=== PATIENT | female | born 1940 | race Caucasian/White ===

== ENCOUNTER 2022-05-16 09:23 | Day surgery (SDC) | payer MEDICARE, OTHER, SELFPAY ==
[2022-05-16 09:45] VITALS: BP 152/66; PULSE 59; RESP 18; TEMP 37.2; O2SAT 99
[2022-05-16] MEDS: TETRACAINE 0.5% OPHTH 1 DROP EYE-RIGHT ×2 (09:45→09:50)
[2022-05-16] MEDS: KETOROLAC OPHTH 0.5% 1 DROP EYE-RIGHT ×3 (09:45→09:55)
[2022-05-16 09:56] VITALS: BMI 33.8
[2022-05-16] MEDS: SODIUM CHLORIDE 0.9 % (FLUSH) 10 ML SYRINGE IVF (10:02)
--- NOTE | 2022-05-16 10:07 | SUR.PREOP ---
The eye drops brought by the patient (Ketorolac and Prednisolone) are examined and I have determined they are labeled by the patient's pharmacy for this patient as prescribed by the surgeon. The bottles are intact, recently obtained and appear to be correct.
[2022-05-16] MEDS: TETRACAINE 0.5% OPHTH 2 DROP EYE-RIGHT (10:39)
[2022-05-16] MEDS: TRYPAN BLUE 0.5 ML SYRINGE EYE-RIGHT (10:45)
[2022-05-16] MEDS: BALANCED SALT IRRIG SOLN 15 ML EYE-RIGHT (10:45)
[2022-05-16 11:20] VITALS: BP 150/72; PULSE 55; RESP 20; TEMP 36.3; O2SAT 100
--- NOTE | 2022-05-16 11:20 | W.ANESCHARGE ---
Anesthesia Charges Start Date/Time Anesthesia Start Date: 05/16/22 Anesthesia Start Time: 10:35 Stop Date/Time Anesthesia Stop Date: 05/16/22 Anesthesia Stop Time: 11:20 Summary Emergency: No Extremes of Age: Over 69-CPT 28104
--- NOTE | 2022-05-16 12:43 | P.OPTPRC_ITS ---
Procedure Note Date of procedure: 05/16/22 Will [facility] bill your pro fee for this procedure?: Yes Procedure Description: SURGEON: Gabrielle Barker MD PREOPERATIVE DIAGNOSIS: 1. Mature cataract, right eye. 2. Miosis, right eye. POSTOPERATIVE DIAGNOSIS: 1. Mature cataract, right eye. 2. Miosis, right eye. NAME OF OPERATION: Phacoemulsification of cataract with posterior chamber intraocular lens implantation in the right eye with pupilloplasty and trypan blue. ANESTHESIA: Topical. ESTIMATED BLOOD LOSS: Less than 2 cc. COMPLICATIONS: None. PATHOLOGY SPECIMEN: None. INDICATIONS: See consult note for details. The risks, benefits and alternatives of the procedure were explained to the patient, who elected to proceed and signed informed consent to do so. PROCEDURE: The patient was brought to the pre-holding area where the right eye was identified as the operative eye. I placed my initials above this eye. The patient received eye drops consisting of 0.5% tetracaine, 1% tropicamide, 10% phenylephrine, and 0.5% ketorolac. The patient was given 12.5 grams IV mannitol and a [place] balloon was placed for 8 minutes pre-operatively. The patient was then brought to the operating room where the right eye was again identified as the operative eye. The eye was prepped with Betadine and draped in the usual sterile ophthalmic fashion. A #15 super-sharp blade was used to create a paracentesis site. 1% non-preserved intracameral lidocaine was injected into the anterior chamber. An air bubble was injected into the anterior chamber. Trypan blue was injected posterior to the air bubble in order to stain the anterior capsule. Balanced salt solution was used to irrigate the anterior chamber. Endocoat was injected into the anterior chamber. A 2.4 mm keratome was used to create a three-plane self-sealing incision 1 mm anterior to the temporal limbus. A #15 super-sharp blade was used to create four additional paracentesis sites. Four Grieshaber iris hooks were placed in order to stretch the iris. A cystotome was used to create an anterior capsular leaflet. The Utrata forceps were used to extend this to form a continuous curvilinear capsulorrhexis. Hydrodissection was performed. The cataract was removed with phacoemulsification using the [id number] technique. The irrigation and aspiration tip was used to remove the remaining cortex. Healon was injected into the capsular bag. An LISBETH ZCB00 intraocular lens of 23.0 diopters was injected into the capsular bag. The four Grieshaber iris hooks were removed. The irrigation and aspiration tip was used to remove the remaining viscoelastic. Miostat was injected into the anterior chamber. Bal anced salt solution on a cannula was used to hydrate the wound, and the wound was found to be watertight. The pupil was noted to be round. DISPOSITION: The patient was taken to the recovery room and discharged to home in stable condition. The patient was instructed to call me or go to the emergency department with any sudden change, including dramatic loss of vision, severe pain in the eye or eyebrow region, nausea, or vomiting. The patient will follow up in the clinic tomorrow morning. Surgeon: Gabrielle Barker MD
== END 2022-05-16 11:56 | disposition home or self-care (01) ==
PROVIDERS: PCP Family Medicine; Visit Provider Ophthalmology
PROC: (CPT 66982; principal; 2022-05-16 09:45)
DX: H25.89 Other age-related cataract (principal); H57.03 Miosis
CPT/HCPCS: 66982; 00142; 99100; A9270; J2150; J3010; V2632

== ENCOUNTER 2022-05-30 07:57 | Day surgery (SDC) | payer MEDICARE, OTHER, SELFPAY ==
[2022-05-30] MEDS: TETRACAINE 0.5% OPHTH 1 DROP EYE-LEFT ×2 (08:20→08:30)
[2022-05-30] MEDS: KETOROLAC OPHTH 0.5% 1 DROP EYE-LEFT ×3 (08:30→08:45)
[2022-05-30 08:37] VITALS: BMI 32.8
[2022-05-30 08:43] VITALS: BP 152/63; PULSE 55; RESP 16; TEMP 36.6; O2SAT 99
[2022-05-30] MEDS: ETHYL CHLORIDE 1 APPLICATION 1 APPLIC TOPICAL (08:45)
[2022-05-30] MEDS: SODIUM CHLORIDE 0.9 % (FLUSH) 10 ML SYRINGE IVF (08:46)
--- NOTE | 2022-05-30 09:09 | SUR.PREOP ---
0820: The eye drops brought by the patient (Ketorolac and Prednisolone) are examined and I have determined they are labeled by the patient's pharmacy for this patient as prescribed by the surgeon. The bottles are intact, recently obtained and appear to be correct.
[2022-05-30] MEDS: TETRACAINE 0.5% OPHTH 2 DROP EYE-LEFT (09:45)
[2022-05-30] MEDS: BALANCED SALT IRRIG SOLN 15 ML EYE-LEFT (09:50)
--- NOTE | 2022-05-30 09:51 | W.ANESCHARGE ---
Anesthesia Charges Start Date/Time Anesthesia Start Date: 05/30/22 Anesthesia Start Time: 09:43 Stop Date/Time Anesthesia Stop Date: 05/30/22 Anesthesia Stop Time: 10:24 Summary Emergency: No Extremes of Age: Over 69-CPT 16210
[2022-05-30 10:20] VITALS: BP 163/60; PULSE 53; RESP 20; TEMP 36.2; O2SAT 100
--- NOTE | 2022-05-30 10:21 | W.PM.OPTPROC ---
Procedure Note Date of procedure: 05/30/22 Will [facility] bill your pro fee for this procedure?: Yes Procedure Description: SURGEON: Gabrielle Barker MD PREOPERATIVE DIAGNOSIS: 1. Mature cataract, left eye. 2. Miosis, left eye. POSTOPERATIVE DIAGNOSIS: 1. Mature cataract, left eye. 2. Miosis, left eye. NAME OF OPERATION: Phacoemulsification of cataract with posterior chamber intraocular lens implantation in the left eye with pupilloplasty. ANESTHESIA: Topical. ESTIMATED BLOOD LOSS: Less than 2 cc. COMPLICATIONS: None. PATHOLOGY SPECIMEN: None. INDICATIONS: See consult note for details. The risks, benefits and alternatives of the procedure were explained to the patient, who elected to proceed and signed informed consent to do so. PROCEDURE: The patient was brought to the pre-holding area where the left eye was identified as the operative eye. I placed my initials above this eye. The patient received eye drops consisting of 0.5% tetracaine, 1% tropicamide, 10% phenylephrine, and 0.5% ketorolac. The patient was given 12.5 grams IV mannitol and a [place] balloon was placed for 8 minutes pre-operatively. The patient was then brought to the operating room where the left eye was again identified as the operative eye. The eye was prepped with Betadine and draped in the usual sterile ophthalmic fashion. A #15 super-sharp blade was used to create a paracentesis site. 1% non-preserved intracameral lidocaine was injected into the anterior chamber. Endocoat was injected into the anterior chamber. A 2.4 mm keratome was used to create a three-plane self-sealing incision 1 mm anterior to the temporal limbus. A #15 super-sharp blade was used to create four additional paracentesis sites. Four Grieshaber iris hooks were placed in order to stretch the iris. A cystotome was used to create an anterior capsular leaflet. The Utrata forceps were used to extend this to form a continuous curvilinear capsulorrhexis. Hydrodissection was performed. The cataract was removed with phacoemulsification using the [id number] technique. The irrigation and aspiration tip was used to remove the remaining cortex. Healon was injected into the capsular bag. An LISBETH ZCB00 intraocular lens of 23.5 diopters was injected into the capsular bag. The four Grieshaber iris hooks were removed. The irrigation and aspiration tip was used to remove the remaining viscoelastic. Miostat was injected into the anterior chamber. Balanced salt solution on a cannula was used to hydrate the wound, and the wound was found to be watertight. The pupil was noted to be round. DISPOSITION: The patient was taken to the recovery room and discharged to home in stable condition. The patient was instructed to call me or go to the emergency department with any sudden change, including dramatic loss of vision, severe pain in the eye or eyebrow region, nausea, or vomiting. The patient will follow up in the clinic tomorrow morning. Surgeon: Gabrielle Barker MD
--- NOTE | 2022-05-30 10:44 | W.ANESCHARGE ---
Anesthesia Charges Start Date/Time Anesthesia Start Date: 05/30/22 Anesthesia Start Time: 09:43 Stop Date/Time Anesthesia Stop Date: 05/30/22 Anesthesia Stop Time: 10:24 Summary Emergency: No Extremes of Age: Over 69-CPT 92242
== END 2022-05-30 10:45 | disposition home or self-care (01) ==
LOC: OR 07:58
PROVIDERS: PCP Family Medicine; Visit Provider Ophthalmology
PROC: (CPT 66982; principal; 2022-05-30 08:15)
DX: H25.89 Other age-related cataract (principal); H57.03 Miosis
CPT/HCPCS: 66982; 00142; 99100; A9270; J2150; J2250; J2405; J3010; V2632

== ENCOUNTER 2023-09-09 14:15 | Outpatient (RCR) | payer MEDICARE, OTHER, SELFPAY | END 2023-11-25 14:04 | disposition home or self-care (01) | PROVIDERS: PCP Family Medicine; Visit Provider Family Medicine | DX: M18.0 Bilateral primary osteoarthritis of first carpometacarpal joints (principal); M79.644 Pain in right finger(s); G89.29 Other chronic pain; M79.645 Pain in left finger(s); M25.649 Stiffness of unspecified hand, not elsewhere classified; Z51.89 Encounter for other specified aftercare | CPT/HCPCS: 97110; 97140; 97165; 97530; X5282 ==

== ENCOUNTER 2024-10-06 11:00 | Outpatient (RCR) | payer MEDICARE, BC, OTHER, SELFPAY | END 2025-02-03 23:59 | disposition home or self-care (01) | PROVIDERS: PCP Family Medicine; Visit Provider Physician Assistant | DX: M62.89 Other specified disorders of muscle (principal); N81.6 Rectocele; N39.3 Stress incontinence (female) (male); R15.2 Fecal urgency; Z51.89 Encounter for other specified aftercare | CPT/HCPCS: 97110; 97140; 97162; 97535 ==

== ENCOUNTER 2025-03-22 12:21 | Emergency (ER) | payer MEDICARE, BC, SELFPAY ==
[2025-03-22] VITALS (33 sets, daily range): BP systolic 128–158; BP diastolic 56–76; PULSE 47–60; RESP 9–32; TEMP 36.5; O2SAT 90–100; BMI 30.9
--- NOTE | 2025-03-22 12:44 | ED_ITS ---
HPI - General Adult General Time Seen by Provider: 12:44 Date Seen: 03/22/25 Chief complaint: Weakness Stated complaint: weakness Time Seen by Provider: 03/22/25 12:34 Source: patient and RN notes reviewed Mode of arrival: ambulatory Limitations: no limitations History of Present Illness HPI narrative: This 85yo female is brought into the ED by her daughter for concerns of dizziness, possible infection. Her symptoms started on Saturday with complaint of feeling very cold despite it being hot outside. No documented fevers but has had chills. No coughing or respiratory symptoms. No abdominal symptoms but did just complete antibiotics on Saturday for UTI per her daughter. Patient is endorsing dizziness with this, agrees that it is a sense of spinning feeling. Has been present since Saturday, does wax and wane with her symptoms. Right now feels relatively under control. When it is there, she doesn't necessarily feel that resting or holding still help resolve symptoms. She does feel that her vision gets generally blurry when the dizziness is bad. She has not noted any voice or arm/leg issues. Related Data Home Medications ?Medication ?Instructions ?Recorded ?Confirmed levothyroxine 25 mcg tablet mcg 05/16/22 05/20/23 simvastatin 40 mg tablet mg 05/16/22 05/20/23 amlodipine 2.5 mg tablet 2.5 mg PO BID 03/22/2503/22 Allergies Allergy/AdvReac Type Severity Reaction Status Date / Time No Known Drug Allergies Allergy Verified 05/20/23 09:42 Review of Systems Status of ROS: Reports: 6 or more systems reviewed and unremarkable except as noted in History and below [facility] Medical History Pulmonary embolism ?I26.99 - Other pulmonary embolism without acute cor pulmonale (ICD-10) Seasonal allergies ?J30.2 - Other seasonal allergic rhinitis (ICD-10) Lymphocytic colitis ?K52.832 - Lymphocytic colitis (ICD-10) Onychomycosis ?B35.1 - Tinea unguium (ICD-10) Overactive bladder ?N32.81 - Overactive bladder (ICD-10) Hypothyroidism ?E03.9 - Hypothyroidism, unspecified (ICD-10) Hyperlipemia, 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 - Hyperlipidemia, unspecified (ICD-10) Surgical History History of tonsillectomy and adenoidectomy ?Z90.89 - Acquired absence of other organs (ICD-10) History of total abdominal hysterectomy ?Z90.710 - Acquired absence of both cervix and uterus (ICD-10) History of knee joint replacement ?Z96.659 - Presence of unspecified artificial knee joint (ICD-10) History of colonoscopy ?Z98.890 - Other specified postprocedural states (ICD-10) History of lumpectomy of both breasts ?Z98.890 - Other specified postprocedural states (ICD-10) History of appendectomy ?Z90.49 - Acquired absence of other specified parts of digestive tract (ICD- 10) Family History Other Deep vein thrombosis (DVT) Social History Smoking Status: Former smoker Do you use any of these nicotine containing products: None How often do you have a drink containing alcohol: monthly or less Alcohol type: wine How many standard drinks containing alcohol do you have on a typical day: 1 or 2 How often do you have six or more drinks on one occasion: Never AUDIT-C Alcohol total score: 1 Non-prescribed substance use: denies use Caffeine: Yes (COFFEE) Are you using contraception or practicing any form of control: No Exam Const: Vital Signs, click to edit/add: Vital Signs - 24 hr 03/22/25 12:30 03/22/25 12:44 03/22/25 12:45 Temperature 97.7 F Pulse Rate 59 L 58 L Pulse Rate [Pulse Oximeter] 59 L Respiratory Rate 18 17 10 L Blood Pressure Blood Pressure [Ri ght Upper Arm] 146/65 H Pulse Oximetry 99 100 100 Oxygen Delivery Me thod Room Air 03/22/25 13:00 03/22/25 13:02 03/22/25 13:30 Temperature Pulse Rate 60 60 57 L Pulse Rate [Pulse Oximeter] Respiratory Rate 26 H 18 18 Blood Pressure 142/57 H Blood Pressure [Ri ght Upper Arm] Pulse Oximetry 96 100 100 Oxygen Delivery Me thod 03/22/25 13:36 03/22/25 13:45 03/22/25 14:00 Temperature Pulse Rate 53 L 55 L 54 L Pulse Rate [Pulse Oximeter] Respiratory Rate 32 H 16 11 L Blood Pressure Blood Pressure [Ri ght Upper Arm] Pulse Oximetry 100 100 [facility] 03[facility]22/25 14:05 03/22/25 14:15 03/22/25 14:30 Temperature Pulse Rate 57 L 56 L 57 L Pulse Rate [Pulse Oximeter] Respiratory Rate 17 13 29 H Blood Pressure Blood Pressure [Ri ght Upper Arm] Pulse Oximetry 90 92 99 [facility] 03/22/25 14:32 03/22/25 14:45 03/22/25 15:00 Temperature Pulse Rate 51 L 54 L 55 L Pulse Rate [Pulse Oximeter] Respiratory Rate 23 16 15 Blood Pressure 154/70 H Blood Pressure [Ri ght Upper Arm] Pulse Oximetry 100 100 99 [facility] 03/22/25 15:02 03/22/25 15:15 03/22/25 15:30 Temperature Pulse Rate 54 L 54 L 54 L Pulse Rate [Pulse Oximeter] Respiratory Rate 12 9 L 14 Blood Pressure 128/76 Blood Pressure [Ri ght Upper Arm] Pulse Oximetry 100 100 100 [facility] 03/22/25 15:32 03/22/25 15:45 03/22/25 16:00 Temperature Pulse Rate 59 L 54 L 54 L Pulse Rate [Pulse Oximeter] Respiratory Rate 10 L 9 L 16 Blood Pressure 149/70 H Blood Pressure [Ri ght Upper Arm] Pulse Oximetry 100 100 98 [facility] 03/22/25 16:53 03/22/25 16:55 03/22/25 16:56 Temperature Pulse Rate 53 L 54 L Pulse Rate [Pulse Oximeter] Respiratory Rate 19 16 15 Blood Pressure 158/57 H Blood Pressure [Ri ght Upper Arm] Pulse Oximetry 100 100 [facility] 03/22/25 17:00 03/22/25 17:02 03/22/25 17:15 Temperature Pulse Rate 50 L 51 L 50 L Pulse Rate [Pulse Oximeter] Respiratory Rate 15 26 H Blood Pressure 154/60 H Blood Pressure [Ri ght Upper Arm] Pulse Oximetry 98 100 99 [facility] 03/22/25 17:30 03/22/25 17:32 03/22/25 17:45 Temperature Pulse Rate 53 L 52 L 55 L Pulse Rate [Pulse Oximeter] Respiratory Rate 14 14 16 Blood Pressure 148/56 H Blood Pressure [Ri ght Upper Arm] Pulse Oximetry 97 95 96 Oxygen Delivery Me thod 03/22/25 18:03 03/22/25 18:15 03/22/25 18:30 Temperature Pulse Rate 50 L 48 L 47 L Pulse Rate [Pulse Oximeter] Respiratory Rate 26 H 19 22 Blood Pressure Blood Pressure [Ri ght Upper Arm] Pulse Oximetry 98 99 98 Oxygen Delivery Me thod This 85-year-old female is alert, interactive, looks comfortable is very pleasant, lying in the bed in exam room 5. Sclera clear, conjugate gaze, do not appreciate any significant nystagmus, notes no visual field cuts on gross confrontation. Symmetrical facial function, speech is normal. Neck supple, no masses, no jugular venous distension, no adenopathy noted. She is able sit up, lungs are clear, good air entry, no wheezing or crackles, no tachypnea, no accessory muscle use. CV regular rate and rhythm, no significant murmur, normal S1-S2. Abdomen is soft, nontender, nondistended, no organomegaly. Strength is about 4/5 in her hands but is symmetric, overall get about 4-5 as far strength goes but think that is her baseline as there is no change between her 2 sides. She does get a little flapping tremor of her right wrist with outstretched arm. When ask her to live upper legs off the bed, there is a little ataxic movement trying to hold her leg up on each side but is symmetric. No resting tremor noted. Did not have the patient ambulate at this time. Documenting provider has reviewed patient's vital signs: yes Course Course ED Course: Patient certainly does have some things in her history that make infectious etiology like recurrent UTI possible. Her daughter was worried about sepsis, she does not meet any criteria for that at this time and see no physical concerns for this based on my initial evaluation but will be monitored here. Will consider metabolic abnormalities. Does almost sound like this could be vertiginous, will start with a noncontrast head CT. If there is no infectious or metabolic etiology, may need to consider further neurologic workup. Right now patient is hemodynamically stable, afebrile. Reevaluation(s) Time of Reevaluation #1: 15:45 Reevaluation #1: Reviewed reassuring lab findings, no change in head CT. Did specifically review that the urinalysis is not showing any definitive infection. Patient states that she is going to have to make an appointment with an eye doctor then. She points that the upper corner looks flat, does not see a point the corner and the bottom part of it looks like it is a rounded post instead of a corner. She felt like the clock kept moving while she was looking at it here. She is obviously having visual changes. Will order brain MR and angio of her head and neck and talk to Neurology about this patient. Again her symptoms have been present since Saturday. Time of Reevaluation #2: 18:21 Reevaluation #2: Reviewed with patient and her daughter that there is no evidence of any concerns with her vasculature or any stroke on the imaging. Her labs are giving no indication of source of infection. This certainly could be peripheral vertigo. She would like to try to get up and walk. If patient is stable, can try going home with p.r.n. use of meclizine which is [id number]. Nursing staff will road test the patient and see how she does. She does live independently in an apartment, does not have assistance at home. Time of Reevaluation #3: 18:59 Reevaluation #3: Patient did fine ambulating per report, will discharge to home. Consultations Consultation #1: Did speak with Stroke Neurology Dr. Lyons from [place]. Reviewed patient's symptoms and her current visual complaints. He does agree that we need to proceed with the CT angio head neck and her brain MR noncontrast. These have already been ordered. He did ask about new medications. Did review that she had completed an antibiotic but I do not know what it was. As for her other medicines, reviewed the 3 that she was on, did confirm that her TSH was normal today and thus her levothyroxine dosing is not off. She otherwise is on amlod ipine and a cholesterol agent. Time: 15:57 Consultation #2: Spoke with Dr. Chris whom is now covering the stroke tele service for [employer]. We reviewed patient's case, her imaging. The punctate abnormality seen on the MRI is old, can be from old trauma or old amyloid angiopathy. He states this is nothing new, there is nothing to worry about at this time. If patient can ambulate, can discharge to home, he does agree with the plan to have her at least see her eye doctor in follow-up. Time: 18:10 Vital Signs Vital signs: Initial Vital Signs Temperature 97.7 F 03/22/25 12:30 Temperature Source Temporal Artery Scan 03/22/25 12:30 Pulse Rate 59 L 03/22/25 12:30 Respiratory Rate 18 03/22/25 12:30 Blood Pressure 146/65 H 03/22/25 12:30 Blood Pressure Mean 92 03/22/25 12:30 Blood Pressure Position Supine 03/22/25 12:30 Pulse Oximetry 99 03/22/25 12:30 Oxygen Delivery Method Room Air 03/22/25 12:30 Vital Signs Temperature 97.7 F 03/22/25 12:30 Pulse Rate 59 L 03/22/25 12:30 Respiratory Rate 18 03/22/25 12:30 Blood Pressure 146/65 H 03/22/25 12:30 Pulse Oximetry 99 03/22/25 12:30 Oxygen Delivery Method Room Air 03/22/25 12:30 Temperature 97.7 F 03/22/25 12:30 Pulse Rate 47 L 03/22/25 18:30 Respiratory Rate 22 03/22/25 18:30 Blood Pressure 148/56 H 03/22/25 17:32 Pulse Oximetry 98 03/22/25 18:30 Oxygen Delivery Method Room Air 03/22/25 12:30 Medical Decision Making Lab Data Lab results reviewed: Yes I reviewed the patient's lab results Labs: Lab Results 03/22/25 03/22/25 Range/Units 13:05 14:20 WBC 5.92 (4.50-11.00) K/uL RBC 4.39 (4.00-5.20) m/uL Hgb 13.6 (12.0-16.0) gm/dL Hct 40.6 (33.0-51.0) % MCV 93 (80-100) fL MCH 31 (26-34) pg MCHC 34 (32-36) gm/dL RDW Coeff of Deepti 12.7 (11.5-15.5) % Plt Count 224 (140-440) K/uL Neut % (Auto) 65.4 (42.0-72.0) % Lymph % (Auto) 23.8 (20-44) % Gem % (Auto) 9.1 (0.0-11.0) % Eos % (Auto) 1.2 (0.0-7.0) % Baso % (Auto) 0.3 (0.0-3.0) % Neut # (Auto) 3.87 (1.7-7.0) K/uL Lymph # (Auto) 1.41 (0.90-2.90) K/uL Gem # (Auto) 0.50 (0.00-0.90) K/UL Eos # (Auto) 0.07 (0.00-0.50) K/uL Baso # (Auto) 0.02 (0.00-0.30) K/uL Abs Immat Gran (auto) 0.01 (0.00-0.30) K/uL Imm/Tot Granulo (auto) 0.2 % Sodium 133 L (135-149) mmol/L Potassium 4.4 (3.6-5.1) mmol/L Chloride 100 (96-114) mmol/L Carbon Dioxide 25 (20-32) mmol/L Anion Gap 8 (7-15) mEq/L BUN 21 (7-30) mg/dL Creatinine 0.8 (0.5-1.5) mg/dL Estimated Creat Clear 31.94 Estimated GFR 72 ml/min Glucose 96 (60-115) mg/dL Lactate 1.4 (0.5-1.9) mmol/L Calcium 9.9 (8.4-10.6) mg/dL Magnesium 2.0 (1.5-2.6) mg/dL Total Bilirubin 0.6 (0.1-1.5) mg/dL AST 30 (12-35) U/L ALT 14 (4-35) U/L Alkaline Phosphatase 71 (40-150) U/L Troponin I < 0.01 (0.01-0.04) ng/mL C-Reactive Protein < 0.5 L (0.5-1.0) mg/dL Total Protein 7.5 (6.0-8.3) g/dL Albumin 4.4 (3.3-5.0) g/dL TSH 1.450 (0.270-4.200) uIU/mL Urine Color Yellow (Yellow) Urine Appearance Clear (Clear) Urine pH 8.5 (5.0-8.5) Ur Specific [place] 1.015 (1.000-1.030) Urine Protein Negative (Negative) Urine Glucose (UA) Negative (Negative) Urine Ketones Negative (Negative) Urine Blood Negative (Negative) Urine Nitrite Negative (Negative) Urine Bilirubin Negative (Negative) Urine Urobilinogen 0.2 (0.2-1.0) Ur Leukocyte Esterase Negative (Negative) Urine RBC 0-2 (0-2) Urine WBC 0-2 (0-5) Ur Squamous Epith Cells Moderate A (None-Few) Urine Bacteria None (None) Imaging Data CT scan - head: Attestation: I have reviewed the pertinent imaging results. Radiologist's impression: Patient: PRADEEP ZIEGLER Facility:?[facility] Patient ID:?[id number] Site Patient ID:?[id number]. Site :?[id number] Study:?CT-Head w/o-03/22/2025 1:15:04 PM Ordering Physician:Venice Gracia Final Report: INDICATION: dizziness, vertigo COMPARISON: CT head on September 20, 2020 TECHNIQUE: CT of the head without contrast. FINDINGS: Brain Parenchyma: Stable global cortical involutional changes. No acute infarct, acute intracranial hemorrhage, mass effect, or midline shift. Periventricular and supraventricular white matter hypodensity, suggestive of chronic microvascular ischemic changes. Ventricles: Stable mild ventricular enlargement, commensurate with the degree of cortical involutional changes and sulcal prominence. Extra-axial Spaces: No abnormal fluid collection. Paranasal sinuses: No significant mucosal thickening. Orbits: Unremarkable Mastoid Sinuses: Unremarkable Cranium: No acute fracture Soft tissues: Unremarkable IMPRESSION: No CT evidence of an acute intracranial process. Please note that all CT scans at this facility use dose modulation, iterative reconstruction, and/or weight-based dosing when appropriate to reduce radiation dose to as low as reasonably achievable. Dictated by Milan Wyatt MD @ 03/22/2025 1:25:52 PM (Electronic Signature) MR Brain: Attestation: I have reviewed the pertinent imaging results. Radiologist's impression: Patient: PRADEEP ZIEGLER Facility:?[facility] Patient ID:?[id number] Site Patient ID:?[id number]. Site :?[id number] Study:?MRI-Head WO-03/22/2025 4:52:16 PM Ordering Physician:Venice Gracia Final Report: INDICATION: visual changes, ?vertigo TECHNIQUE: Noncontrast Sagittal T1, Axial FSE T2, Flair, DWI images submitted. COMPARISON: Dating back to 2020 FINDINGS: The scalp and calvarium are normal. The superior sagittal sinus demonstrates normal venous flow. The corpus callosum is normal in shape and signal intensity. The posterior fossa is unremarkable. The pituitary and sella are normal. The brainstem and craniocervical junction are unremarkable. The upper cervical spinal cord and spine are normal. Diffusion weighted images reveal no hyperintensities to suggest acute cerebral infarction. Scattered areas of punctate susceptibility within the brain, predominantly in the right occipital and left occipital regions. Likely reflecting sequela of underlying chronic microvascular hemorrhage.. The ventricles are normal in size and position without evidence of hydrocephalus. There is mild, age-appropriate generalized atrophy. The axial FLAIR images show scattered punctate hyperintensities in the deep white matter, a nonspecific finding, however most commonly seen in the setting of chronic small vessel ischemic changes. The visualized portions of the orbits, mastoids and paranasal sinuses are unremarkable. Normal flow voids are demonstrated in the carotid arteries and basilar artery. IMPRESSION: 1. No acute intracranial findings. 2. Scattered areas of punctate susceptibility within the brain, predominantly in the right occipital and left occipital regions. Likely reflecting sequela of underlying chronic microvascular hemorrhage. Dictated by Roman Saldana MD @ 03/22/2025 5:07:35 PM (Electronic Signature) CT- Other: Attestation: I have reviewed the pertinent imaging results. Radiologist's impression: Patient: PRADEEP ZIEGLER Facility:?[facility] Patient ID:?[id number] Site Patient ID:?[id number]. Site :?[id number] Study:?CT-Head Angio W/IV-03/22/2025 4:18:01 PM Ordering Physician:Venice Gracia Final Report: INDICATION: Visual changes, vertigo. TECHNIQUE: CTA head using intravenous contrast administration with bolus tracking, 3D angiographic rendering using maximum intensity projection (MIP) and images permanently archived. CTA neck using intravenous contrast administration with bolus tracking, 3D angiographic rendering using maximum intensity projection (MIP) and images permanently archived. FINDINGS: CTA head: There is normal opacification of the intracranial vasculature. There is no large vessel occlusion or significant intracranial stenosis. No aneurysm is identified. CTA neck: There is carotid atherosclerosis bilaterally. There is no significant carotid artery stenosis or dissection. There is no significant vertebral artery stenosis or dissection. Degenerative changes are noted in the cervical spine. IMPRESSION: No acute intracranial abnormality at CTA. No significant carotid or vertebral artery stenosis or dissection. Please note that all CT scans at this facility use dose modulation, iterative reconstruction, and/or weight-based dosing when appropriate to reduce radiation dose to as low as reasonably achievable. Dictated by Marko Novoa MD @ 03/22/2025 5:06:24 PM (Electronic Signature) ECG Data Attestation: I personally reviewed and interpreted this ECG as follows: (Sinus bradycardia, 55 beats per minute. No active ischemia or infarct.) Prior ECG tracings: not available for review Discharge Plan Discharge Clinical Impression: Dizziness Patient Disposition: Home, Self-Care Condition: Stable Instructions: Vertigo (ED), Dizziness (ED) Additional Instructions: Your symptoms certainly sound like vertigo to me, based on the workup today this is likely peripheral vertigo. If you have ongoing symptoms, can try meclizine per bottle directions which is sold [id number]. Recommend scheduling a clinic follow-up within the next couple days for recheck with your primary care provider. If your worsening at any point, have further concerns or symptoms are problematic that she cannot care for herself at home, please seek emergent re- evaluation. Activity Level: Activity as Tolerated Prescriptions: No Action amlodipine 2.5 mg tablet 2.5 mg PO BID simvastatin 40 mg tablet Patient Comments: TAKE 1 TABLET (40 MG) BY MOUTH ONCE DAILY. levothyroxine 25 mcg tablet Patient Comments: TAKE 1 TABLET (25 MCG) BY MOUTH ONCE DAILY. Follow Up/Referrals: Debi Oliva DO [Primary Care Provider, Family Practice] Stand Alone Forms: [employer] Info Instructions
--- NOTE | 2025-03-22 12:51 | CRLHL7_ITS ---
For Patients: As a result of the Cures Act, medical imaging exams and procedure reports are released immediately into your electronic medical record. You may view this report before your referring provider. If you have questions, please contact your health care provider. INDICATION: dizziness, vertigo COMPARISON: CT head on September 20, 2020 TECHNIQUE: CT of the head without contrast. FINDINGS: Brain Parenchyma: Stable global cortical involutional changes. No acute infarct, acute intracranial hemorrhage, mass effect, or midline shift. Periventricular and supraventricular white matter hypodensity, suggestive of chronic microvascular ischemic changes. Ventricles: Stable mild ventricular enlargement, commensurate with the degree of cortical involutional changes and sulcal prominence. Extra-axial Spaces: No abnormal fluid collection. Paranasal sinuses: No significant mucosal thickening. Orbits: Unremarkable Mastoid Sinuses: Unremarkable Cranium: No acute fracture Soft tissues: Unremarkable IMPRESSION: No CT evidence of an acute intracranial process. Please note that all CT scans at this facility use dose modulation, iterative reconstruction, and/or weight-based dosing when appropriate to reduce radiation dose to as low as reasonably achievable. Dictated by Milan Wyatt MD @ 03/22/2025 1:25:52 PM (Electronically Signed)
[2025-03-22 13:12] LABS: Lactate* 1.4 mmol/L (0.5-1.9)
[2025-03-22 13:17] LABS: Hematocrit 40.6 % (33.0-51.0); Hemoglobin* 13.6 gm/dL (12.0-16.0); Immature Granulocytes Abs Auto 0.01 K/uL (0.00-0.30); Immature Granulocytes Pct Auto 0.2 %; Lymphocytes Absolute Auto 1.41 K/uL (0.90-2.90); Mean Corpuscular HGB Conc 34 gm/dL (32-36); Mean Corpuscular Hemoglobin 31 pg (26-34); Mean Corpuscular Volume 93 fL (80-100); RDW Coefficient of Variation % 12.7 % (11.5-15.5); Red Blood Count 4.39 m/uL (4.00-5.20); White Blood Count* 5.92 K/uL (4.50-11.00)
[2025-03-22 13:18] LABS: Slide Review Reflex No
[2025-03-22 13:29] LABS: Chloride* 100 mmol/L (96-114)
[2025-03-22 13:30] LABS: Albumin* 4.4 g/dL (3.3-5.0); Potassium* 4.4 mmol/L (3.6-5.1); Sodium* 133 mmol/L (135-149)
[2025-03-22 13:33] LABS: Alanine Aminotransferase* 14 U/L (4-35); Alkaline Phosphatase* 71 U/L (40-150); Anion Gap 8 mEq/L (7-15); Aspartate Amino Transferase* 30 U/L (12-35); Bilirubin Total* 0.6 mg/dL (0.1-1.5); Blood Urea Nitrogen* 21 mg/dL (7-30); Carbon Dioxide* 25 mmol/L (20-32); Creatinine* 0.8 mg/dL (0.5-1.5); Est. Creatinine Clearance* 31.94; Estimated Glomerular Filt Rate 72 ml/min; Total Protein* 7.5 g/dL (6.0-8.3)
[2025-03-22 13:34] LABS: Calcium* 9.9 mg/dL (8.4-10.6); Glucose* 96 mg/dL (60-115)
[2025-03-22 14:07] LABS: TSH With Reflex to FT4* 1.450 uIU/mL (0.270-4.200)
[2025-03-22 14:41] LABS: Appearance Urine Clear (Clear)
--- NOTE | 2025-03-22 15:44 | CRLHL7_ITS ---
For Patients: As a result of the Century Cures Act, medical imaging exams and procedure reports are released immediately into your electronic medical record. You may view this report before your referring provider. If you have questions, please contact your health care provider. INDICATION: Visual changes, vertigo. TECHNIQUE: CTA head using intravenous contrast administration with bolus tracking, 3D angiographic rendering using maximum intensity projection (MIP) and images permanently archived. CTA neck using intravenous contrast administration with bolus tracking, 3D angiographic rendering using maximum intensity projection (MIP) and images permanently archived. FINDINGS: CTA head: There is normal opacification of the intracranial vasculature. There is no large vessel occlusion or significant intracranial stenosis. No aneurysm is identified. CTA neck: There is carotid atherosclerosis bilaterally. There is no significant carotid artery stenosis or dissection. There is no significant vertebral artery stenosis or dissection. Degenerative changes are noted in the cervical spine. IMPRESSION: No acute intracranial abnormality at CTA. No significant carotid or vertebral artery stenosis or dissection. Please note that all CT scans at this facility use dose modulation, iterative reconstruction, and/or weight-based dosing when appropriate to reduce radiation dose to as low as reasonably achievable. Dictated by Marko Novoa MD @ 03/22/2025 5:06:24 PM (Electronic Signature) SP/Dictated by: Marko Novoa MD @ 03/22/2025 5:06:00 PM (Electronically Signed)
--- NOTE | 2025-03-22 15:44 | CRLHL7_ITS ---
For Patients: As a result of the Century Cures Act, medical imaging exams and procedure reports are released immediately into your electronic medical record. You may view this report before your referring provider. If you have questions, please contact your health care provider. INDICATION: visual changes, ?vertigo TECHNIQUE: Noncontrast Sagittal T1, Axial FSE T2, Flair, DWI images submitted. COMPARISON: Dating back to 2020 FINDINGS: The scalp and calvarium are normal. The superior sagittal sinus demonstrates normal venous flow. The corpus callosum is normal in shape and signal intensity. The posterior fossa is unremarkable. The pituitary and sella are normal. The brainstem and craniocervical junction are unremarkable. The upper cervical spinal cord and spine are normal. Diffusion weighted images reveal no hyperintensities to suggest acute cerebral infarction. Scattered areas of punctate susceptibility within the brain, predominantly in the right occipital and left occipital regions. Likely reflecting sequela of underlying chronic microvascular hemorrhage.. The ventricles are normal in size and position without evidence of hydrocephalus. There is mild, age-appropriate generalized atrophy. The axial FLAIR images show scattered punctate hyperintensities in the deep white matter, a nonspecific finding, however most commonly seen in the setting of chronic small vessel ischemic changes. The visualized portions of the orbits, mastoids and paranasal sinuses are unremarkable. Normal flow voids are demonstrated in the carotid arteries and basilar artery. IMPRESSION: 1. No acute intracranial findings. 2. Scattered areas of punctate susceptibility within the brain, predominantly in the right occipital and left occipital regions. Likely reflecting sequela of underlying chronic microvascular hemorrhage. Dictated by Roman Saldana MD @ 03/22/2025 5:07:35 PM (Electronically Signed)
== END 2025-03-22 19:15 | disposition home or self-care (01) ==
PROVIDERS: Emergency Provider Family Medicine; PCP Family Medicine
DX: R42 Dizziness and giddiness (principal)
CPT/HCPCS: 36415; 70450; 70496; 70498; 70551; 80053; 81001; 83605; 83735; 84443; 84484; 85025; 86140; 93005; 94761; 99285; Q9967

== ENCOUNTER 2025-04-06 10:30 | Outpatient (RCR) | payer MEDICARE, BC, SELFPAY | END 2025-08-04 23:59 | disposition home or self-care (01) | PROVIDERS: PCP Family Medicine; Visit Provider Family Medicine | DX: H81.13 Benign paroxysmal vertigo, bilateral (principal); Z51.89 Encounter for other specified aftercare | CPT/HCPCS: 97110; 97162 ==

== ENCOUNTER 2025-07-18 07:09 | Outpatient (CLI) | payer MEDICARE, BC, SELFPAY | END 2025-07-18 07:10 | disposition home or self-care (01) | LOC: AMB 07-20 09:27 | PROVIDERS: PCP Family Medicine; Visit Provider Family Medicine | DX: M54.9 Dorsalgia, unspecified (principal); R33.9 Retention of urine, unspecified | CPT/HCPCS: A0425; A0429 ==

== ENCOUNTER 2025-07-18 07:40 | Emergency (ER) | payer MEDICARE, BC, SELFPAY ==
--- OUTSIDE RECORDS SUMMARY | 2025-06-11 04:32 | XMS_ITS | Encounter Summary ---
Author Organization [place] Address [address] [facility] [place] [address] Care Team Providers Care Green Chain Off Bearer Name Role Phone Debi Oliva MD Primary Care Provider [phone] Reason for Visit * Auth/Cert Specialty Diagnoses / Procedures Referred By Contbinu t Referred To Contact Surgery Diagnoses Prolapse, post-hysterectomy Stress incontinence, female Enterocele Incomplete defecation Rectocele Prolapse, post-hysterectomy [N99.3] Stress incontinence, female [N39.3] Enterocele [K46.9] Incomplete defecation [R15.0] Rectocele [N81.6] Procedures WV REMOVE VAGINA WALL, PARTIAL WV COMPLETE REMOVAL OF VAGINA WALL WV CLOSURE OF VAGINA WV COMBINED ANT/POST COLPORRHAPHY WV LAPAROSCOPY, SURGICAL; SLING OPERATION FOR STRESS INCONTINENCE WV CYSTOURETHROSCOPY WV REPR VAGINAL PROLAPSE,SACROSP LIG WV COLPOPEXY, VAGINAL; INTRA-PERITONEAL APPROACH (UTEROSACRAL, LEVATOR MYORRHAPHY) WV SLING OPERATION FOR STRESS INCONTINENCE complete colpectomy; anterior repair, posterior repair, enterocele repair, levator pelvic floor muscle plication; perineorrhaphy; possible retropubic midurethral sling placement and cystoscopy Tony Jorgensen MD [facility] [address] [facility] [address] [place] [address] Phone: tel: fax: [facility] [address] [place] [address] Phone: tel: fax: Referral ID Status Reason Start Date Expiration Date Visits Re quested Visits Authorized [id number] 1 1 Encounter Details Date Type Department Care Team (Latest Contact Info) Description 06/11/2025 5:32 AM CDT - 06/12/2025 6:24 PM CDT Hospital Encounter [facility] Observation Dept [address] [place] [id number] Tony Jorgensen MD [facility] [address] [place] [address] Post-operative state (Primary Dx) Discharge Disposition: Home or Self Care Social History Tobacco Use Types Packs/Day Years Used Date Smoking Tobacco: Former Cigarettes Smokeless Tobacco: Never Tobacco Cessation:Counseling Given: Not Answered Alcohol Use Standard Drinks/Week Comments Yes 0 (1 standard drink = 0.6 oz pur e alcohol) occ. Food Insecurity Answer Date Recorded Within the past 12 months, d id you worry that your food would run out before you got money to buy more? No 06/11/2025 Within the past 12 months, d id the food you bought just not last and you didn t have money to get more? No 06/11/2025 Housing Stability Answer Date Recorded Do you have housing? (Finesse g is defined as stable permanent housing and does not include staying outside in a car, in a tent, in an abandoned building, in an overnight halfway, or couch-surfing.) Yes 06/11/2025 Are you worried about losing your housing? No 06/11/2025 Financial Resource Strain Answer Date R ecorded Within the past 12 months, h ave you or your family members you live with been unable to get utilities (heat, electricity) when it was really needed? No 06/11/2025 Transportation Needs Answer Date Record ed Within the past 12 months, h as lack of transportation kept you from medical appointments, getting your medicines, non-medical meetings or appointments, work, or from getting things that you need? No 06/11/2025 Interpersonal Safety Answer Date Record ed Do you feel physically and e motionally safe where you currently live? Yes 06/11/2025 Within the past 12 months, h ave you been hit, slapped, kicked or otherwise physically hurt by someone? No 06/11/2025 Within the past 12 months, h ave you been humiliated or emotionally abused in other ways by your partner or ex-partner? No 06/11/2025 Comments No Sex and Gender Information Value Date Recorded Sex Assigned at Not on file Legal Sex Female 11:49 AM CDT Gender Identity Not on file Sexual Orientation Not on file documented as of this encounter Last Filed Vital Signs Vital Sign Reading Time Taken Comments Blood Pressure 125/53 06/12/2025 7:45 AM CDT Pulse 56 06/12/2025 3:50 AM CDT Temperature 36.6 C (97.8 F) 06/12/2025 3:50 AM CDT Respiratory Rate 16 06/12/2025 3:50 AM CDT Oxygen Saturation 95% 06/12/2025 3:50 AM CDT Inhaled Oxygen Concentration - - Weight 79 kg (174 lb 1.6 oz) 06/11/2025 5:37 AM CDT Height 157.5 cm (5' 2.01) 06/11/2025 5:37 AM CD T Body Mass Index 31.84 06/11/2025 5:37 AM CDT documented in this encounter Discharge Summaries * Tony Jorgensen MD - 06/12/2025 6:24 PM CDT DISCHARGE SUMMARY DATE OF ADMISSION: 06/11/25 DATE OF DISCHARGE: 06/12/25 DIAGNOSIS: Post-hysterectomy vaginal prolapse (POP-Q Stage 3 Aa 0, Ap +2, C -2, TVL 6) Associated cystocele, rectocele, and enterocele. Stress urinary incontinence with ISD PROCEDURES : 1. Complete colpectomy 2. Anterior repair 2. Enterocele repair 3. Posterior colporrhaphy 4. Levator myorrhaphy 5. Perineorrhaphy 6. Retropubic midurethral sling 6. Cystourethroscopy HOSPITAL COURSE: Labs: HGB: pre-op 10.4 Post-op 12.3, creat 0.92 Assessment and Plan: POD# 1 A) Post-Operative Care: ambulate ADAT continue with pain control strategies. I reviewed post-operative instructions and precautions/ written information provided. Discharge home anticipated today Follow-up next week in office for catheter removal B) Medical: Resume home medications and routines Tony Jorgensen MD DISCHARGE MEDICATION INSTRUCTIONS AND PRESCRIPTIONS REVIEWED/WRITTEN INSTRUCTIONS PROVIDED. TONY JORGENSEN MD EY PLAYER documented in this encounter Discharge Instructions * Discharge Instructions* Tony Jorgensen MD - 06/12/2025 11:50 AM CDT [facility] Prolapse/Pelvic Reconstructive Surgery Instructions for Caring for yourself after Surgery How do I manage my pain? Pain and tenderness should lessen each day. To help keep pain under control, use the following guidelines: Apply ice packs to your perineum (vaginal and rectal area) for the 1st couple of days. Take 600 milligrams (mg) of ibuprofen (Advil) every 6 hours for the 1st several days. Use your prescribed narcotic (hydromorphone) for additional pain relief as needed. Do not drive, drink alcohol or make any major decisions, such as signing important papers or managing legal issues, while taking prescription pain medication. Take pain medication with food to avoid an upset stomach. How do I care for my perineum? Use pads for vaginal discharge after surgery. Discharge is normal and can last several weeks. Discharge may appear bloody, yellow or white. Do not place anything in your vagina until advised by your doctor. What about bathing? Do not take a tub bath, use a hot tub or swim until advised by your doctor. You may take showers. What about bowel and bladder management? Keep stools soft and regular. We recommend using the following medicine that loosens stools and increases bowel movements: MiraLAX- 17 grams or a capful daily following surgery. When urinating, do not bear down. Relax and allow the bladder muscle to contract. If you are unableto urinate, contact your doctor. If you go home with a catheter, your doctor may prescribe an antibiotic for you to take before bed to help prevent infection. Follow up in the clinic as instructed to have the catheter removed. What about activity? Do not lift more than 10 pounds for 6 weeks after surgery. Avoid heavy pushing or pulling, such as vacuuming or lawn mowing. Your body???s tissues need time to heal and regain maximum strength. Keep Active. Walking is encouraged. Gradually build up how long and far you walk. Climbing stairs is OK if able. You may resume driving when you are no longer taking narcotic pain medication and have the strengthto use the brake pedal as needed. When do I call my doctor? Call Dr. Jorgensen call [phone] if you have: (for urgent questions/concerns CELL PHONE [phone]) -Any post-operative questions or concerns -A fever over 100.4 F (38 C) -Difficulty emptying your bladder -Chills -Worsening pain -Nausea or vomiting documented in this encounter Medications at Time of Discharge amLODIPine (NORVASC) 5 MG tablet Take 5 mg by mouth daily. 09/28/2024 betamethasone valerate (VALISONE) 0.1 % external cream Apply topically 2 times daily. 04/21/2024 ibuprofen (ADVIL/MOTRIN) 600 MG tabletIndication s:Post-operative state Take 1 tablet (600 mg) by mouth every 6 hours as needed for moderate pain. 30 tablet 06/12/2025 levothyroxine (SYNTHROID/LEVOT HROID) 25 MCG tablet Take 25 mcg by mouth daily. 08/17/2024 meclizine 25 MG CHEW Take 25 mg by mouth every 6 hours as needed for dizziness. polyethylene glycol (MIRALAX) 17 GM/Dose powderIndication s:Post-operative state Take 17 g by mouth daily. 510 g 06/12/2025 simvastatin (ZOCOR) 40 MG tablet Take 40 mg by mouth daily. 08/17/2024 ciprofloxacin (CIPRO) 250 MG tabletIndication s:Post-operative state Take 1 tablet (250 mg) by mouth 2 times daily for 7 days. 14 tablet 06/12/2025 HYDROmorphone (DILAUDID) 2 MG tabletIndication s:Post-operative state Take 1 tablet (2 mg) by mouth every 4 hours for 3 days. 10 tablet 06/12/2025 5 documented as of this encounter Progress Notes * Tony Jorgensen MD - 06/12/2025 10:20 AM CDT UROGYNECOLOGY POST-OP DAY #1 S: Doing well Ambulating: yes Diet: reg Flatus: yes Pain control: good Vaginal Pack: none Wilkes catheter: in place O: Vitals: BP 125/53 Pulse 56 Temp 97.8 ??F (36.6 ??C) (Oral) Resp 16 Ht 1.575 m (5' 2.01) Wt 79 kg (174 lb 1.6 oz) SpO2 95% BMI 31.84 kg/m?? BMI= Body mass index is 31.84 kg/m??. Intake/Output Summary (Last 24 hours) at 06/12/2025 1020 Last data filed at 06/11/2025 1336 Gross per 24 hour Intake 1310 ml Output 1150 ml Net 160 ml Exam: Appears healthy and well, A&O x3 Abdomen is soft, slight bloating, incisions C/D/I, good BS Ext SCD, no edema Wilkes catheter in place Vaginal packing none no perineal edema, incisions intact. Labs: HGB: pre-op 10.4 Post-op 12.3, creat 0.92 Assessment and Plan: POD# 1 A) Post-Operative Care: ambulate ADAT continue with pain control strategies. I reviewed post-operative instructions and precautions/ written information provided. Discharge home anticipated today Follow-up next week in office for catheter removal B) Medical: Resume home medications and routines Tony Jorgensen MD documented in this encounter Miscellaneous Notes * Plan of Care - Angelica Oropeza RN - 06/12/2025 5:46 PM CDT Goal Outcome Evaluation: Plan of Care Reviewed With: patient Progress: improvingProgress: improving Outcome Evaluation: A/Ox4 DENIES N/T/T in extemities, notes some fullness/tenderess in abd, but denies any real pain, From [facility] living facility, reg diet, A1 GB FWW, two kristofer area incisions glued shut and intact, PIV removed, AVS given with paper scripts and gone overwith patient, catheter care and information also gone overiwth daughter and patent with educational material provided. Follow upOP with 's team, peripad has some moderate serognoius drainage, wilkes in place and draining well. Daughter as transport. Problem: Delirium Goal: Optimal Coping Outcome: Progressing Goal: Improved Behavioral Control Outcome: Progressing Intervention: Minimize Safety Risk Recent Flowsheet Documentation Taken 06/12/2025799 by Angelica Oropeza RN Enhanced Safety Measures: family to remain at bedside pain management patient/family teach back on injury risk review medications for side effects with activity Goal: Improved Attention and Thought Clarity Outcome: Progressing Goal: Improved Sleep Outcome: Progressing Problem: Adult Inpatient Plan of Care Goal: Plan of Care Review Description: The Plan of Care Review/Shift note should be completed every shift. The Outcome Evaluation is a brief statement about your assessment that the patient is improving, declining, or no change. This information will be displayed automatically on your shift note. Outcome: Progressing Flowsheets Taken 06/12/2025 1052 Outcome Evaluation: A/Ox4 DENIES N/T/T in extemities, notes some fulness/tenderess in abd, but denies any real pain, From [facility] living facility, reg diet, A1 GB FWW, two kristofer area incisions glued shut and intact, PIV SL, to see, peripad has some moderate serognoius drainage, wilkes in place and draining well Plan of Care Reviewed With: patient Progress: improving Taken 06/12/2025799 Plan of Care Reviewed With: patient Goal: Patient-Specific Goal (Individualized) Description: You can add care plan individualizations to a care plan. Examples of Individualizationmight be: Parent requests to be called daily at 9am for status, I have a hard time hearing out of my right ear, or Do not touch me to wake me up as it startles me. Outcome: Progressing Goal: Absence of Hospital-Acquired Illness or Injury Outcome: Progressing Intervention: Identify and Manage Fall Risk Recent Flowsheet Documentation Taken 06/12/2025799 by Angelica Oropeza RN Safety Promotion/Fall Prevention: clutter-free environment maintained nonskid shoes/slippers when out of bed safety round/check completed Intervention: Prevent and Manage VTE (Venous Thromboembolism) Risk Recent Flowsheet Documentation Taken 06/12/2025799 by Angelica Oropeza RN VTE Prevention/Management: SCDs on (sequential compression devices) Goal: Optimal Comfort and Wellbeing Outcome: Progressing Goal: Readiness for Transition of Care Outcome: Progressing Problem: Fall Injury Risk Goal: Absence of Fall and Fall-Related Injury Outcome: Progressing Intervention: Identify and Manage Contributors Recent Flowsheet Documentation Taken 06/12/2025799 by Angelica Oropeza RN Medication Review/Management: medications reviewed Intervention: Promote Injury-Free Environment Recent Flowsheet Documentation Taken 06/12/2025799 by Angelica Oropeza RN Safety Promotion/Fall Prevention: clutter-free environment maintained nonskid shoes/slippers when out of bed safety round/check completed Problem: Pelvic Organ Prolapse Surgical Repair Goal: Absence of Bleeding Outcome: Progressing Goal: Effective Bowel Elimination Outcome: Progressing Goal: Fluid and Electrolyte Balance Outcome: Progressing Goal: Absence of Infection Signs and Symptoms Outcome: Progressing Goal: Anesthesia/Sedation Recovery Outcome: Progressing Intervention: Optimize Anesthesia Recovery Recent Flowsheet Documentation Taken 06/12/2025799 by Angelica Oropeza RN Safety Promotion/Fall Prevention: clutter-free environment maintained nonskid shoes/slippers when out of bed safety round/check completed Goal: Optimal Pain Control and Function Outcome: Progressing Intervention: Prevent or Manage Pain Recent Flowsheet Documentation Taken 06/12/2025799 by Angelica Oropeza RN Medication Review/Management: medications reviewed Goal: Nausea and Vomiting Relief Outcome: Progressing Goal: Effective Urinary Elimination Outcome: Progressing Goal: Effective Oxygenation and Ventilation Outcome: Progressing Problem: Comorbidity Management Goal: Blood Pressure in Desired Range Outcome: Progressing Intervention: Maintain Blood Pressure Management Recent Flowsheet Documentation Taken 06/12/2025799 by Angelica Oropeza RN Medication Review/Management: medications reviewed * Plan of Care - So Bello RN - 06/12/2025 3:52 AM CDT 0503-1244 Inpatient Progress Note: BP 121/47 (BP Location: Right arm, Cuff Size: Adult Regular) Pulse 56 Temp 97.8 ??F (36.6 ??C) (Oral) Resp 16 Ht 1.575 m (5' 2.01) Wt 79 kg (174 lb 1.6 oz) SpO2 95% BMI 31.84 kg/m?? Orientation: A&O x4 Pain status: Denies pain Activity: Ax1 walker GB Resp: WDL, RA Cardiac: WDL GI: WDL : X, wilkes in place. Vaginal incision- pad in place. 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 So Bello RN Problem: Delirium Goal: Optimal Coping Outcome: Progressing Goal: Improved Behavioral Control Outcome: Progressing Intervention: Minimize Safety Risk Recent Flowsheet Documentation Taken 06/11/20252039 by So Bello RN Enhanced Safety Measures: family to remain at bedside pain management patient/family teach back on injury risk review medications for side effects with activity Goal: Improved Attention and Thought Clarity Outcome: Progressing Goal: Improved Sleep Outcome: Progressing Problem: Adult Inpatient Plan of Care Goal: Plan of Care Review Description: The Plan of Care Review/Shift note should be completed every shift. The Outcome Evaluation is a brief statement about your assessment that the patient is improving, declining, or no change. This information will be displayed automatically on your shift note. Outcome: Progressing Flowsheets (Taken 06/12/2025 0351) Outcome Evaluation: A&Ox4, Ax1 walker GB. Wilkes in place. hgb in am. Plan of Care Reviewed With: patient Progress: improving Goal: Patient-Specific Goal (Individualized) Description: You can add care plan individualizations to a care plan. Examples of Individualizationmight be: Parent requests to be called daily at 9am for status, I have a hard time hearing out of my right ear, or Do not touch me to wake me up as it startles me. Outcome: Progressing Goal: Absence of Hospital-Acquired Illness or Injury Outcome: Progressing Intervention: Identify and Manage Fall Risk Recent Flowsheet Documentation Taken 06/11/20252039 by So Bello RN Safety Promotion/Fall Prevention: clutter-free environment maintained nonskid shoes/slippers when out of bed safety round/check completed Goal: Optimal Comfort and Wellbeing Outcome: Progressing Goal: Readiness for Transition of Care Outcome: Progressing Problem: Fall Injury Risk Goal: Absence of Fall and Fall-Related Injury Outcome: Progressing Intervention: Identify and Manage Contributors Recent Flowsheet Documentation Taken 06/11/20252039 by So Bello RN Medication Review/Management: medications reviewed Intervention: Promote Injury-Free Environment Recent Flowsheet Documentation Taken 06/11/20252039 by So Bello RN Safety Promotion/Fall Prevention: clutter-free environment maintained nonskid shoes/slippers when out of bed safety round/check completed Problem: Pelvic Organ Prolapse Surgical Repair Goal: Absence of Bleeding Outcome: Progressing Goal: Effective Bowel Elimination Outcome: Progressing Goal: Fluid and Electrolyte Balance Outcome: Progressing Goal: Absence of Infection Signs and Symptoms Outcome: Progressing Goal: Anesthesia/Sedation Recovery Outcome: Progressing Intervention: Optimize Anesthesia Recovery Recent Flowsheet Documentation Taken 06/11/20252039 by So Bello RN Safety Promotion/Fall Prevention: clutter-free environment maintained nonskid shoes/slippers when out of bed safety round/check completed Goal: Optimal Pain Control and Function Outcome: Progressing Intervention: Prevent or Manage Pain Recent Flowsheet Documentation Taken 06/11/20252039 by So Bello RN Medication Review/Management: medications reviewed Goal: Nausea and Vomiting Relief Outcome: Progressing Goal: Effective Urinary Elimination Outcome: Progressing Goal: Effective Oxygenation and Ventilation Outcome: Progressing Problem: Comorbidity Management Goal: Blood Pressure in Desired Range Outcome: Progressing Intervention: Maintain Blood Pressure Management Recent Flowsheet Documentation Taken 06/11/20252039 by So Bello RN Medication Review/Management: medications reviewed Goal Outcome Evaluation: Plan of Care Reviewed With: patient Progress: improvingProgress: improving Outcome Evaluation: A&Ox4, Ax1 walker GB. Wilkes in place. hgb in am. * Plan of Care - Afshan Johnson RN - 06/11/2025 5:00 PM CDT Care from [id number] Inpatient Progress Note: For complete assessment see flow sheet documentation. BP 113/62 (BP Location: Right arm) Pulse 65 Temp 97.8 ??F (36.6 ??C) (Oral) Resp 12 Ht 1.575 m (5' 2.01) Wt 79 kg (174 lb 1.6 oz) SpO2 96% BMI 31.84 kg/m?? Neuro: A&O x4 Vital Signs: VSS on RA Pain/Comfort: Denies pain or discomfort. Diet/po intake: Pt is tolerating a regular diet. Output: Pt has a wilkes for surgery, will discharge with this and trail to void outpt. Activity/Ambulation: Pt is IND at baseline, hasn't been out of bed yet. Pertinent assessments: Infusions: NS at 100, will discontinue as pt is drinking an adequate amount of fluids. Major Shift Events: Admitted to the floor from PACU Plan (Upcoming Events): OBGYN following. Discharge/Transfer Needs: Will discharge home to IND living. Will continue with POC. Will continue to monitor and provide cares. Goal Outcome Evaluation: Plan of Care Reviewed With: patient, child Progress: no changeProgress: no change Problem: Delirium Goal: Optimal Coping Outcome: Progressing Goal: Improved Behavioral Control Outcome: Progressing Intervention: Minimize Safety Risk Recent Flowsheet Documentation Taken 06/11/2025 1319 by Afshan Johnson RN Enhanced Safety Measures: family to remain at bedside pain management patient/family teach back on injury risk review medications for side effects with activity Goal: Improved Attention and Thought Clarity Outcome: Progressing Goal: Improved Sleep Outcome: Progressing Problem: Adult Inpatient Plan of Care Goal: Plan of Care Review Description: The Plan of Care Review/Shift note should be completed every shift. The Outcome Evaluation is a brief statement about your assessment that the patient is improving, declining, or no change. This information will be displayed automatically on your shift note. Outcome: Progressing Flowsheets (Taken 06/11/2025 1430) Plan of Care Reviewed With: patient child Progress: no change Goal: Patient-Specific Goal (Individualized) Description: You can add care plan individualizations to a care plan. Examples of Individualizationmight be: Parent requests to be called daily at 9am for status, I have a hard time hearing out of my right ear, or Do not touch me to wake me up as it startles me. Outcome: Progressing Goal: Absence of Hospital-Acquired Illness or Injury Outcome: Progressing Intervention: Identify and Manage Fall Risk Recent Flowsheet Documentation Taken 06/11/20251318 by Afshan Johnson RN Safety Promotion/Fall Prevention: clutter-free environment maintained nonskid shoes/slippers when out of bed safety round/check completed Intervention: Prevent Skin Injury Recent Flowsheet Documentation Taken 06/11/2025 1146 by Afshan Johnson RN Body Position: supine Intervention: Prevent and Manage VTE (Venous Thromboembolism) Risk Recent Flowsheet Documentation Taken 06/11/2025 131 by Afshan Johnson RN VTE Prevention/Management: SCDs on (sequential compression devices) Goal: Optimal Comfort and Wellbeing Outcome: Progressing Goal: Readiness for Transition of Care Outcome: Progressing Problem: Fall Injury Risk Goal: Absence of Fall and Fall-Related Injury Outcome: Progressing Intervention: Identify and Manage Contributors Recent Flowsheet Documentation Taken 06/11/20251318 by Afshan Johnson RN Medication Review/Management: medications reviewed Intervention: Promote Injury-Free Environment Recent Flowsheet Documentation Taken 06/11/2025 131 by Afshan Johnson RN Safety Promotion/Fall Prevention: clutter-free environment maintained nonskid shoes/slippers when out of bed safety round/check completed Problem: Pelvic Organ Prolapse Surgical Repair Goal: Absence of Bleeding Outcome: Progressing Goal: Effective Bowel Elimination Outcome: Progressing Goal: Fluid and Electrolyte Balance Outcome: Progressing Goal: Absence of Infection Signs and Symptoms Outcome: Progressing Goal: Anesthesia/Sedation Recovery Outcome: Progressing Intervention: Optimize Anesthesia Recovery Recent Flowsheet Documentation Taken 06/11/2025 131 by Afshan Johnson RN Safety Promotion/Fall Prevention: clutter-free environment maintained nonskid shoes/slippers when out of bed safety round/check completed Goal: Optimal Pain Control and Function Outcome: Progressing Intervention: Prevent or Manage Pain Recent Flowsheet Documentation Taken 06/11/20251318 by Afshan Johnson RN Medication Review/Management: medications reviewed Goal: Nausea and Vomiting Relief Outcome: Progressing Goal: Effective Urinary Elimination Outcome: Progressing Goal: Effective Oxygenation and Ventilation Outcome: Progressing Problem: Comorbidity Management Goal: Blood Pressure in Desired Range Outcome: Progressing Intervention: Maintain Blood Pressure Management Recent Flowsheet Documentation Taken 06/11/2025 1319 by Afshan Johnson RN Medication Review/Management: medications reviewed * Plan of Care - Afshan Johnson RN - 06/11/2025 11:54 AM CDT ROOM # 202-2 Living Situation (if not independent, order SW consult): IND living Facility name:[facility] personal attendant: DaughterKeron Montenegro Activity level at baseline: Ind, walker at times Activity level on admit: Ax 1 Who will be transporting you at discharge: Daughter Patient registered to observation; given Patient Bill of Rights; given the opportunity to ask questions about observation status and their plan of care. Patient has been oriented to the observation room, bathroom and call light is in place. Discussed discharge goals and expectations with patient/family. * Op Note - Tony Jorgensen MD - 06/11/2025 8:01 AM CDT OPERATIVE REPORT NAME: Shaila Tatum MR#: [id number] : 1940 DATE OF OPERATION: June 11, 2025 SURGEON: Tony Jorgensen MD PREOPERATIVE DIAGNOSIS: Post-hysterectomy vaginal prolapse (POP-Q Stage 3 Aa 0, Ap +2, C -2, TVL 6) Associated cystocele, rectocele, and enterocele. Stress urinary incontinence with ISD POSTOP DIAGNOSIS: Post-hysterectomy vaginal prolapse (POP-Q Stage 3 Aa 0, Ap +2, C -2, TVL 6) Associated cystocele, rectocele, and enterocele. Stress urinary incontinence with ISD PROCEDURES : 1. Complete colpectomy 2. Anterior repair 2. Enterocele repair 3. Posterior colporrhaphy 4. Levator myorrhaphy 5. Perineorrhaphy 6. Retropubic midurethral sling 6. Cystourethroscopy P[employer]P PLANT SUPERVISOR: EA skilled library circulation assistant, ZOEY Sandoval, was necessary for this procedure for assistance withpatient positioning, prepping, draping, surgical visualization, performance of the repairs, wound closure and dressing application. The library circulation assistant was present for the entire procedure. ANESTHESIA: GET ESTIMATED BLOOD LOSS: 150 ml IV FLUIDS: 1500 ml of crystalloid. COMPLICATIONS: None DRAINS: 16-Niuean Wilkes catheter to gravity drainage PACKING: None FINDINGS: ?? No bladder lesion or injury, normal structural anatomy, ureters patent bilaterally ?? Normal rectal exam at conclusion of surgery INDICATIONS: This patient was seen in consultation regarding vaginal/pelvic organ prolapse and incontinence. Please refer to her clinic documentation for a complete description of her evaluation treatment plan she was desirous of a definitive surgical approach. Prior to the procedure, the risks, benefits, indications, and alternatives were discussed. Both written and verbal consent were obtained. PROCEDURE: The patient was brought to the operating suite. She was administered prophylactic IV antibiotics, had sequential compression devices present on her lower extremities. She was placed in the supine position and administered general anesthesia. She was now carefully positioned in the dorsal lithotomy p osition with her legs stationed in the Yellofin stirrups with attention to avoiding pressure points. An exam under anesthesia was performed, which noted post-hysterectomy vagina with prominent enterocele defect, no adnexal or parametrial masses. Anorectal exam normal. She was now sterilely prepped and draped in the usual fashion. Her bladder was drained with straight catheterization. Complete Colpectomy. Her vaginal cuff was grasped with an Allis clamp at each corner. The vaginal tissue was injected with local anesthetic solution to assist with hydro- dissection. The vaginal epithelium was carefully dissected off the underlying perivesical/perirectal tissue and the parietal peritoneum at the apex ofthe enterocele. The dissection encompassed the span of tissue from the bladder neck to the vaginal cuff and out laterally to the arcus tendineus fascia pelvis. The posterior dissection was performed from the perineal body to the vaginal cuff and out laterally to the levator muscle insertion points. Anterior Repair. The kristofer-vesical connective tissue was plicated, using 0-vicryl suture, to the midline to provide anterior support. Retropubic midurethral sling. Two bowen were created on the anterior abdominal wall 2.5 cm lateral to midline at the level of thepubic bone. Attention was turned to the vagina, where an Allis clamp was applied 1 cm distal from the meatus, an additional Allis clamp 2.5 cm from the meatus. The periurethral tissue was injected with a solution of Marcaine with epinephrine. A 1.5 cm incision was created between the 2 Allis clampsbeneath the mid urethra in the sagittal plane. Two periurethral tunnels were then created out laterally towards the pubic bone. Once an adequate dissection had been performed, the Advantage Fit device (ZEturf) was selected and loaded. The trocar was brought through the patient's left kristofer urethral tunnel, then back behind the pubic bone, through the space of Retzius, and out through thepreviously created jermaine on the anterior abdominal wall. The blue stay sheath was left in place.Thiswas repeated in a similar fashion on the patient's right side. The urethra was diverted in ipsilateral fashion during trocar placement. Cystourethroscopy was now repeated with continued normal findings. The cystoscope was removed. The sling material was appropriately positioned beneath the mid urethra with no overt tension. The resultant incision was closed with a running locking suture of 2-0 Vicryl. Enterocele repair and Posterior colporrhaphy. The enterocele at the apex of the vagina was obliterated using serial 0-vicryl suture in a circumferential and A/P orientation. Multiple layers of repair/reconstruction were placed to reduce and support the enterocele defect. The large posterior rectocele defect was now imbricated in the midline using interrupted sutures of0-Vicryl sequentially, layering the repair in the caudad/caphalad plane and the horizontal plane with multiple layers of tissue plication. Levator Myorrhaphy and Perineorrhaphy A further dissection was taken out laterally in order to mobilize the levator musculature to allow for a midline plication and closure of the genital hiatus. This was performed with interrupted sutures of 0-Vicryl. The result of the repair was a 1 cm genital hiatus. The posterior repair and perineal body skin was reapproximated with a running locking suture of 2-0 Vicryl internally and a subcuticular suture of the perineal body skin externally. Anorectal exam showed there to be no injuries or other abnormalities. She had a 16-Niuean Wilkes catheter present to gravity drainage. Sponge, lap, and needle counts were found be correct. There were no complications from surgery. The patient was awoken from anesthesia and brought to the recovery room in excellent condition. * Pharmacy-Admission Medication History - Brigitte Garland RPH - 06/09/2025 1:12 PM CDT Medication reconciliation interview completed by pre-admitting nurse, reviewed by pharmacy. No further clarifications needed. Prior to Admission medications Medication Sig Last Dose Taking? Auth Provider [facility] End Date amLODIPine (NORVASC) 5 MG tablet Take 5 mg by mouth daily. Yes Reported, Patient Yes betamethasone valerate (VALISONE) 0.1 % external cream Apply topically 2 times daily. Yes Reported,Patient levothyroxine (SYNTHROID/LEVOTHROID) 25 MCG tablet Take 25 mcg by mouth daily. Yes Reported, Patient Yes simvastatin (ZOCOR) 40 MG tablet Take 40 mg by mouth daily. Yes Reported, Patient Yes documented in this encounter Plan of Treatment Not on file documented as of this encounter Procedures Procedure Name Priority Date/Time Associated Diagnosis Comments GLUCOSE BY METER Routine 06/12/2025 7:44 AM CDT BASIC METABOLIC PANEL (LIMITED OCCURRENCES) Routine 06/12/2025 6:50 AM CDT HEMOGLOBIN Routine 06/12/2025 6:50 AM CDT CREATION, VAGINAL SLING, WITH CYSTOSCOPY 06/11/2025 7:31 AM CDT Prolapse, post-hysterectom y Stress incontinence, female Enterocele Incomplete defecation Rectocele Special Needs Please have daughter sign consent to communicate dos.150min COMBINED ANT/POST COLPORRHAPHY 06/11/2025 7:31 AM CDT Prolapse, post-hysterectom y Stress incontinence, female Enterocele Incomplete defecation Rectocele Special Needs Please have daughter sign consent to communicate dos.150min CLOSURE OF VAGINA 06/11/2025 7:3 1 AM CDT Prolapse, post-hysterectom y Stress incontinence, female Enterocele Incomplete defecation Rectocele Special Needs Please have daughter sign consent to communicate dos.150min EXTRA TUBE Routine 06/11/2025 6:31 AM CDT EXTRA GREEN TOP (LITHIUM HEPARIN) TUBE Routine 06/11/2025 6:31 AM CDT HEMOGLOBIN STAT 06/11/2025 6:31 AM CDT GLUCOSE BY METER Routine 06/11/2025 5:42 AM CDT documented in this encounter Results * (ABNORMAL) Glucose by meter (06/12/2025 7:44 AM CDT) GLUCOSE BY METER POCT 127(H) 70 - 99 mg/dL 06/12/2025 7:51 AM CDT LABORATORY POC Blood, Capillary BLOOD SPECIMEN / Unknown 06/12/2025 7:44 AM CDT 06/12/2025 7:51 AM CDT Tony Jorgensen MD LAB - BEAKER POCT Final Result [facility]AT[facility] [address] [facility] Lab (1st floor, no room number) [place] [address] * (ABNORMAL) Basic Metabolic Panel (Limited Occurrences) (06/12/2025 6:50 AM CDT) Sodium 133(L) 135 - 145 mmol/L 06/12/2025 7:19 AM CDT LABORATORY Potassium 4.6 3.4 - 5.3 mmol/L 06/12/2025 7:19 AM CDT LABORATORY Chloride 100 98 - 107 mmol/L 06/12/2025 7:19 AM CDT LABORATORY Carbon Dioxide (CO2) 24 22 - 29 mmol/L 06/12/2025 7:19 AM CDT LABORATORY Anion Gap 9 7 - 15 mmol/L 06/12/2025 7:19 AM CDT LABORATORY Urea Nitrogen 19.6 8.0 - 23.0 mg/dL 06/12/2025 7:19 AM CDT LABORATORY Creatinine 0.92 0.51 - 0.95 mg/dL 06/12/2025 7:19 AM CDT [facility] GFR Estimate 60(L) >60 mL/min/1.7 3m2 06/12/2025 7:19 AM CDT [facility] Comment:eGFR calculated usin 2020 CKD-EPI equation. Calcium 8.6(L) 8.8 - 10.4 mg/dL 06/12/2025 7:19 AM CDT [facility] Glucose 124(H) 70 - 99 mg/dL 06/12/2025 7:19 AM CDT [facility] Blood STRUCTURE OF LEFT UPPER LIMB / Unknown Venipuncture / Unknown 06/12/2025 6:50 AM CDT 06/12/2025 6:54 AM CDT Tony Jorgensen MD LAB - BLOOD ORDERABLES F inal Result Performing Organization Address City/[facility]/ZIP Co de Phone Number [facility] [address] Lab (1st floor, no room number) [place] [phone] [place] [address] * (ABNORMAL) Hemoglobin (06/12/2025 6:50 AM CDT) Hemoglobin 10.4(L) 11.7 - 15.7 g/dL 06/12/2025 6:56 AM CDT [facility] MCV 95.4 78.0 - 100.0 fL 06/12/2025 6:56 AM CDT [facility] Blood STRUCTURE OF LEFT UPPER LIMB / Unknown Venipuncture / Unknown 06/12/2025 6:50 AM CDT 06/12/2025 6:54 AM CDT Tony Jorgensen MD LAB - BLOOD ORDERABLES F inal Result [facility] [address] Lab (1st floor, no room number) [place] [address] * Extra Green Top ([place] Heparin) Tube (06/11/2025 6:31 AM CDT) Hold Specimen JIC 06/11/2025 7:46 AM CDT [facility] Blood STRUCTURE OF LEFT UPPER LIMB / Unknown Venipuncture / Unknown 06/11/2025 6:31 AM CDT 06/11/2025 6:36 AM CDT Tony Jorgensen MD LAB - BLOOD ORDERABLES F inal Result [facility] [address] Lab (1st floor, no room number) [place] [address] * Hemoglobin (06/11/2025 6:31 AM CDT) Hemoglobin 12.3 11.7 - 15.7 g/dL 06/11/2025 6:39 AM CDT [facility] MCV 95.7 78.0 - 100.0 fL 06/11/2025 6:39 AM CDT [facility] Blood STRUCTURE OF LEFT UPPER LIMB / Unknown Venipuncture / Unknown 06/11/2025 6:31 AM CDT 06/11/2025 6:35 AM CDT Tony Jorgensen MD LAB - BLOOD ORDERABLES F inal Result Performing Organization Address City/[facility]/ZIP Co de Phone Number [facility] [address] Lab (1st floor, no room number) [place] [address] * Glucose by meter (06/11/2025 5:42 AM CDT) GLUCOSE BY METER POCT 89 70 - 99 mg/dL 06/11/2025 5:49 AM CDT LABORATORY POC Blood, Capillary BLOOD SPECIMEN / Unknown 06/11/2025 5:42 AM CDT 06/11/2025 5:49 AM CDT Tony Jorgensen MD LAB - BEAKER POCT Final Result LABORATORY [facility] [address] Lab (1st floor, no room number) [place] [address], [facility] documented in this encounter Visit Diagnoses Diagnosis Post-operative state- Primary Other postprocedural status Post-operative state Other postprocedural status documented in this encounter Admitting Diagnoses Diagnosis Post-operative state Other postprocedural status documented in this encounter Administered Medications Inactive Administered Medications - up to 3 most recent administrations Medication Order MAR Action Action Date Dose Rate Site acetaminophen (TYLENOL) tablet 650 mg 650 mg, Oral, EVERY 6 HOURS, First dose on Sat06/11/25 at 1200, Maximum acetaminophen dose from all sources = 75 mg/kg/day not to exceed 4 grams/day. $Given 06/12/2025 1:11 PM CDT 650 mg $Given 06/12/2025 7:44 AM CDT 650 mg $Given 06/11/2025 12:21 PM CDT 650 mg acetaminophen (TYLENOL) tablet 975 mg 975 mg, Oral, ONCE, On Sat06/11/25 at 0600, For 1 dose, Give within 60 min of procedure. Hold if patient has taken acetaminophen within 4 hours. Maximum acetaminophen dose from all sources = 75 mg/kg/day not to exceed 4 grams/day., Pre-procedure $Given 06/11/2025 6:06 AM CDT 975 mg amLODIPine (NORVASC) tablet 5 mg 5 mg, Oral, DAILY, First dose on 06/12/25 at 0800 $Given 06/12/2025 7:45 AM CDT 5 mg HYDROmorphone (DILAUDID) half-tab 1 mg 1 mg, Oral, EVERY 4 HOURS PRN, moderate pain, Starting on Sat06/11/25 at 1148, Hold oral PRN dose for analgesic side effects. Notify provider to assess for uncontrolled pain or analgesic side effects. Hold while on IV SUPERVISOR REWORK or with regular IV opioid dosing. HYDROmorphone (DILAUDID) injection 0.1 mg 0.1 mg, Intravenous, EVERY 4 HOURS PRN, moderate pain, Starting on Sat06/11/25 at 1148, IF patient unable to take oral pain medication or pain not controlled with oral analgesics. Hold IV PRN opioid dose for analgesic side effects. Notify provider to assess for uncontrolled pain or analgesic side effects. HYDROmorphone (DILAUDID) injection 0.2 mg 0.2 mg, Intravenous, EVERY 4 HOURS PRN, severe pain, Starting on Sat06/11/25 at 1148, IF patient unable to take oral pain medication or pain not controlled with oral analgesics. Hold IV PRN opioid dose for analgesic side effects. Notify provider to assess for uncontrolled pain or analgesic side effects. HYDROmorphone (DILAUDID) tablet 2 mg 2 mg, Oral, EVERY 4 HOURS PRN, severe pain, Starting on Sat06/11/25 at 1148, Hold oral PRN dose for analgesic side effects. Notify provider to assess for uncontrolled pain or analgesic side effects. Hold while on IV SUPERVISOR REWORK or with regular IV opioid dosing. ketorolac (TORADOL) injection 15 mg 15 mg, Intravenous, EVERY 6 HOURS, First dose on Sat06/11/25 at 1600, For 4 doses, Age greater than or equal to 65 years OR CrCl 30- 50 mL/min. May continue use for up to 5 days MAX if order renewed. IF celecoxib (CELEBREX) was given pre-operatively, start ketorolac (TORADOL) 12 hours after celecoxib (CELEBREX) given. Can cause pain on injection. If ordered intravenously (IV) : administer through a running maintenance fluid over 1 minute followed by a flush. If patient complains of pain on injection, may dilute 15-30 mg in 5 mL and push over 1 to 2 minutes. $Given 06/12/2025 10:17 AM CDT 15 mg $Given 06/11/2025 4:46 PM CDT 15 mg levothyroxine (SYNTHROID/LEVOTHROID) tablet 25 mcg 25 mcg, Oral, DAILY, First dose on Sat06/12/25 at 0730, Separate oral administration of iron- or calcium-containing products and levothyroxine by at least 4 hours. $Given 06/12/2025 7:47 AM CDT 25 mcg meclizine (ANTIVERT) tablet 25 mg 25 mg, Oral, EVERY 6 HOURS PRN, dizziness, Starting on Sat06/11/25 at 1150 $Given 06/11/2025 4:59 PM CDT 25 mg naloxone (NARCAN) injection 0.2 mg 0.2 mg, Intravenous, EVERY 2 MIN PRN, opioid reversal, Starting on Sat06/11/25 at 1202, Administer intravenous route when available and notify provider when administered. For unintended sedation or respiratory depression if all of the below criteria are met: ~ respiratory rate LESS than or EQUAL to 8. ~SaO2 less than 92% and or/end-tidal CO2 is greater than 50. ~ the patient is receiving an opioid, has unintended sedations assessed as RASS (-3), and is currently not on mechanical ventilation. RASS scale moderate (-3) is movement or eye opening to voice but no eye contact. Patient Monitoring Once the patient has demonstrated a response to the naloxone, continue to monitor respiratory rate, depth, oxygen saturation and end-tidal CO2 (if available) every 15 minutes x 2, then every 30 minutes x 2, then every 1 hour x 1 after each naloxone dose. Consider transfer to ICU if patient respiratory parameters have not improved after 4 naloxone doses. naloxone (NARCAN) injection 0.2 mg 0.2 mg, Intramuscular, EVERY 2 MIN PRN, opioid reversal, Starting on Sat06/11/25 at 1202, Administer intramuscular if an intravenous route is not available and notify provider when administered. For unintended sedation or respiratory depression if all of the below criteria are met: ~ respiratory rate LESS than or EQUAL to 8. ~SaO2 less than 92% and or/end-tidal CO2 is greater than 50. ~ the patient is receiving an opioid, has unintended sedations assessed as RASS (-3), and is currently not on mechanical ventilation. RASS scale moderate (-3) is movement or eye opening to voice but no eye contact. Patient Monitoring Once the patient has demonstrated a response to the naloxone, continue to monitor respiratory rate, depth, oxygen saturation and end-tidal CO2 (if available) every 15 minutes x 2, then every 30 minutes x 2, then every 1 hour x 1 after each naloxone dose. Consider transfer to ICU if patient respiratory parameters have not improved after 4 naloxone doses. naloxone (NARCAN) injection 0.4 mg 0.4 mg, Intravenous, EVERY 2 MIN PRN, opioid reversal, Starting on Sat06/11/25 at 1202, Administer intravenous route when available and notify provider when administered. For unintended sedation or respiratory depression if all of the below criteria are met: ~ respiratory rate LESS than or EQUAL to 8. ~ SaO2 less than 92% and or/end-tidal CO2 is greater than 50. ~ the patient is receiving an opioid, has unintended sedation assessed as RASS (-4) or (-5) and patient is currently not on mechanical ventilation. RASS scale (-4) is deep sedation with no response to voice but movement or eye opening to physical stimulation. RASS scale (-5) is unarousable. Patient Monitoring Once the patient has demonstrated a response to the naloxone, continue to monitor respiratory rate, depth, oxygen saturation and end-tidal CO2 (if available) every 15 minutes x 2, then every 30 minutes x 2, then every 1 hour x 1 after each naloxone dose. Consider transfer to ICU if patient respiratory parameters have not improved after 4 naloxone doses. naloxone (NARCAN) injection 0.4 mg 0.4 mg, Intramuscular, EVERY 2 MIN PRN, opioid reversal, Starting on Sat06/11/25 at 1202, Administer intramuscular if an intravenous route is not available and notify provider when administered. For unintended sedation or respiratory depression if all of the below criteria are met: ~ respiratory rate LESS than or EQUAL to 8. ~ SaO2 less than 92% and or/end-tidal CO2 is greater than 50. ~ the patient is receiving an opioid, has unintended sedation assessed as RASS (-4) or (-5) and patient is currently not on mechanical ventilation. RASS scale (-4) is deep sedation with no response to voice but movement or eye opening to physical stimulation. RASS scale (-5) is unarousable. Patient Monitoring Once the patient has demonstrated a response to the naloxone, continue to monitor respiratory rate, depth, oxygen saturation and end-tidal CO2 (if available) every 15 minutes x 2, then every 30 minutes x 2, then every 1 hour x 1 after each naloxone dose. Consider transfer to ICU if patient respiratory parameters have not improved after 4 naloxone doses. ondansetron (ZOFRAN ODT) ODT tab 4 mg 4 mg, Oral, EVERY 6 HOURS PRN, nausea/vomiting - 1st line, Starting on Sat06/11/25 at 1148, This is Step 1 of nausea and vomiting management. If nausea not resolved in 15 minutes, go to Step 2 prochlorperazine (COMPAZINE). With dry hands, peel back foil backing and gently remove tablet. Do not push oral disintegrating tablet through foil backing. Administer immediately on tongue and oral disintegrating tablet dissolves in seconds, then swallow with saliva. Liquid not required. ondansetron (ZOFRAN) injection 4 mg 4 mg, Intravenous, EVERY 6 HOURS PRN, nausea/vomiting - 2nd line, Administer over 2-5 Minutes, Starting on Sat06/11/25 at 1148, Give IF patient unable to tolerate oral medication. This is Step 1 of nausea and vomiting management. If nausea not resolved in 15 minutes, go to Step 2 prochlorperazine (COMPAZINE). phenazopyridine (PYRIDIUM) tablet 200 mg 200 mg, Oral, ONCE, On Sat06/11/25 at 0600, For 1 dose, Give in preop holding room with small sip of water., Pre-procedure $Given 06/11/2025 6:06 AM CDT 200 mg polyethylene glycol (MIRALAX) Packet 17 g 17 g, Oral, DAILY, First dose on Sat06/11/25 at 1200, 1 Packet = 17 grams. Mix each gram with at least 1/2 ounce (15 mL) of water - 8 ounces for 17 g dose, 4 ounces for 8.5 g dose, 2 ounces for 4 g dose. Follow with the same volume of water. Hold for loose stools unless being administered as part of a bowel prep regimen or bowel clean out. $Given 06/12/2025 7:47 AM CDT 17 g simethicone (MYLICON) chewable tablet 80 mg 80 mg, Oral, EVERY 6 HOURS PRN, cramping, Starting on Sat06/11/25 at 1147 simvastatin (ZOCOR) tablet 40 mg 40 mg, Oral, DAILY, First dose on 06/12/25 at 0800 $Given 06/12/2025 7:51 AM CDT 40 mg sodium chloride (PF) 0.9% PF flush 3 mL 3 mL, Intravenous, EVERY 1 HOUR PRN, line flush, post meds or blood draw, Starting on Sat06/11/25 at 1148, for peripheral IV line flush post IV meds sodium chloride (PF) 0.9% PF flush 3 mL 3 mL, Intravenous, EVERY 8 HOURS, First dose on Sat06/11/25 at 1200, to lock peripheral IV dormant line. Also Ordered Q1H PRN $Given 06/11/2025 12:21 PM CDT 3 mLs sodium chloride (PF) 0.9% PF flush 3 mL 3 mL, Intravenous, EVERY 1 HOUR PRN, line flush, to lock peripheral IV dormant line., Starting on Sat06/11/25 at 1148, Also Ordered EVERY 8 HOURS. sodium chloride 0.9 % infusion at 100 mL/hr, Intravenous, CONTINUOUS, Starting on Sat06/11/25 at 1200, Until 06/12/25 at 202 $New Bag 06/11/2025 12:21 PM CDT 100 mL/hr documented in this encounter Active and Recently Administered Medications Times are shown in CDT. Scheduled Medication Order 06/10/2025 06/11/2025 06/12/2025 acetaminophen (TYLENOL) tablet 650 mg 650 mg, Oral, EVERY 6 HOURS, First dose on Sat06/11/25 at 1200, Maximum acetaminophen dose from all sources = 75 mg/kg/day not to exceed 4 grams/day. 1221 ($Given - Provider: Afshan Johnson RN)1807 (Not Given - Provider: Afshan Johnson RN - Reason: Other - Comment: Pt has no pain.)2030 (Not Given - Provider: So Bello RN - Reason: Patient/family refused) 0315 (Not Given - Provider: So Bello RN - Reason: Patient/family refused)0744 ($Given - Provider: Emily Peterson)1311 ($Given - Provider: Angelica Oropeza RN)2000 (Canceled Entry - Provider: Orders Generic Provider - Comment: Automatically canceled at discontinue of medication order) acetaminophen (TYLENOL) tablet 975 mg (COMPLETED) 975 mg, Oral, ONCE, On Sat06/11/25 at 0600, For 1 dose, Give within 60 min of procedure. Hold if patient has taken acetaminophen within 4 hours. Maximum acetaminophen dose from all sources = 75 mg/kg/day not to exceed 4 grams/day., Pre-procedure 0606 ($Given - Provider: Wendi Osborne RN) amLODIPine (NORVASC) tablet 5 mg 5 mg, Oral, DAILY, First dose on 06/12/25 at 0800 0745 ($Given - Provi jh: Emily Peterson) ceFAZolin Sodium (ANCEF) injection 2 g (COMPLETED) Routine, 2 g, Intravenous, PRE-OP/PRE-PROCEDURE, Starting on Sat06/11/25 at 0547, For 1 dose, Give first dose within 1 hour PRIOR to incision. If patient weight is greater than or equal to 120 kg increase dose to 3 g., Indications: Perioperative Pharmacoprophylaxis, Pre-procedure 0728 ($Given - Provider: Nicci Ibarra APRN CRNA) ketorolac (TORADOL) injection 15 mg (COMPLETED) 15 mg, Intravenous, EVERY 6 HOURS, First dose on Sat06/11/25 at 1600, For 4 doses, Age greater than or equal to 65 years OR CrCl 30- 50 mL/min. May continue use for up to 5 days MAX if order renewed. IF celecoxib (CELEBREX) was given pre-operatively, start ketorolac (TORADOL) 12 hours after celecoxib (CELEBREX) given. Can cause pain on injection. If ordered intravenously (IV) : administer through a running maintenance fluid over 1 minute followed by a flush. If patient complains of pain on injection, may dilute 15-30 mg in 5 mL and push over 1 to 2 minutes. 1646 ($Given - Provider: Afshan Johnson RN)2134 (Not Given - Provider: So Bello RN - Reason: Patient/family refused) 0351 (Not Given - Provider: So Bello RN - Reason: Patient/family refused)1017 ($Given - Provider: Emily Peterson) levothyroxine (SYNTHROID/LEVOTHROID) tablet 25 mcg 25 mcg, Oral, DAILY, First dose on Sat06/12/25 at 0730, Separate oral administration of iron- or calcium-containing products and levothyroxine by at least 4 hours. 0747 ($Given - Provi jh: Emily Peterson) phenazopyridine (PYRIDIUM) tablet 200 mg (COMPLETED) 200 mg, Oral, ONCE, On Sat06/11/25 at 0600, For 1 dose, Give in preop holding room with small sip of water., Pre-procedure 06 ($Given - Provider: Wendi Osborne RN) polyethylene glycol (MIRALAX) Packet 17 g 17 g, Oral, DAILY, First dose on Sat06/11/25 at 1200, 1 Packet = 17 grams. Mix each gram with at least 1/2 ounce (15 mL) of water - 8 ounces for 17 g dose, 4 ounces for 8.5 g dose, 2 ounces for 4 g dose. Follow with the same volume of water. Hold for loose stools unless being administered as part of a bowel prep regimen or bowel clean out. 1221 (Not Given - Provider: Afshan Johnson RN - Reason: Patient/family refused) 0747 ($Given - Provider: Emily Peterson) simvastatin (ZOCOR) tablet 40 mg 40 mg, Oral, DAILY, First dose on 06/12/25 at 0800 0751 ($Given - Provi hj: Emily Peterson) sodium chloride (PF) 0.9% PF flush 3 mL 3 mL, Intravenous, EVERY 8 HOURS, First dose on Sat06/11/25 at 1200, to lock peripheral IV dormant line. Also Ordered Q1H PRN 1221 ($Given - Provider: Afshan Johnson RN)2028 (Not Given - Provider: So Bello RN - Reason: Other) 0425 (Not Given - Provider: So Bello RN - Reason: Patient sleeping)1200 (Not Given - Provider: Angelica Oropeza RN - Reason: Other)1999 (Canceled Entry - Provider: Orders Generic Provider - Comment: Automatically canceled at discontinue of medication order) Continuous Medication Order 06/10/2025 06/11/2025 06/12/2025 sodium chloride 0.9 % infusion at 100 mL/hr, Intravenous, CONTINUOUS, Starting on Sat06/11/25 at 1200, Until 06/12/25 at 2024 1221 ($New Bag - Provider: Afshan Johnson RN) PRN Medication Order 06/10/2025 06/11/2025 06/12/2025 bacitracin ointment (CANCELED) PRN, Starting on Sat06/11/25 at 1008, Intra-procedure 1008 ($Given - Provider: Tony Jorgensen MD) BUPivacaine (MARCAINE) 0.5 % 30 mL, lidocaine 1% with EPINEPHrine 1:100,000 30 mL in sodium chloride 0.9% (bottle) 40 mL OR mixture (CANCELED) PRN, Starting on Sat06/11/25 at 1006, Intra-procedure 1006 ($Given - Provider: Tony Jorgensen MD) HYDROmorphone (DILAUDID) half-tab 1 mg(Linked Group 1) 1 mg, Oral, EVERY 4 HOURS PRN, moderate pain, Starting on Sat06/11/25 at 1148, Hold oral PRN dose for analgesic side effects. Notify provider to assess for uncontrolled pain or analgesic side effects. Hold while on IV SU[employer]WORK or with regular IV opioid dosing. HYDROmorphone (DILAUDID) injection 0.1 mg(Linked Group 2) 0.1 mg, Intravenous, EVERY 4 HOURS PRN, moderate pain, Starting on Sat06/11/25 at 1148, IF patient unable to take oral pain medication or pain not controlled with oral analgesics. Hold IV PRN opioid dose for analgesic side effects. Notify provider to assess for uncontrolled pain or analgesic side effects. HYDROmorphone (DILAUDID) injection 0.2 mg(Linked Group 2) 0.2 mg, Intravenous, EVERY 4 HOURS PRN, severe pain, Starting on Sat06/11/25 at 1148, IF patient unable to take oral pain medication or pain not controlled with oral analgesics. Hold IV PRN opioid dose for analgesic side effects. Notify provider to assess for uncontrolled pain or analgesic side effects. HYDROmorphone (DILAUDID) tablet 2 mg(Linked Group 1) 2 mg, Oral, EVERY 4 HOURS PRN, severe pain, Starting on Sat06/11/25 at 1148, Hold oral PRN dose for analgesic side effects. Notify provider to assess for uncontrolled pain or analgesic side effects. Hold while on IV [employer]WORK or with regular IV opioid dosing. meclizine (ANTIVERT) tablet 25 mg 25 mg, Oral, EVERY 6 HOURS PRN, dizziness, Starting on Sat06/11/25 at 1150 1659 ($Given - Provider: Afshan Johnson RN) naloxone (NARCAN) injection 0.2 mg(Linked Group 3) 0.2 mg, Intravenous, EVERY 2 MIN PRN, opioid reversal, Starting on Sat06/11/25 at 1202, Administer intravenous route when available and notify provider when administered. For unintended sedation or respiratory depression if all of the below criteria are met: ~ respiratory rate LESS than or EQUAL to 8. ~SaO2 less than 92% and or/end-tidal CO2 is greater than 50. ~ the patient is receiving an opioid, has unintended sedations assessed as RASS (-3), and is currently not on mechanical ventilation. RASS scale moderate (-3) is movement or eye opening to voice but no eye contact. Patient Monitoring Once the patient has demonstrated a response to the naloxone, continue to monitor respiratory rate, depth, oxygen saturation and end-tidal CO2 (if available) every 15 minutes x 2, then every 30 minutes x 2, then every 1 hour x 1 after each naloxone dose. Consider transfer to ICU if patient respiratory parameters have not improved after 4 naloxone doses. naloxone (NARCAN) injection 0.2 mg(Linked Group 3) 0.2 mg, Intramuscular, EVERY 2 MIN PRN, opioid reversal, Starting on Sat06/11/25 at 1202, Administer intramuscular if an intravenous route is not available and notify provider when administered. For unintended sedation or respiratory depression if all of the below criteria are met: ~ respiratory rate LESS than or EQUAL to 8. ~SaO2 less than 92% and or/end-tidal CO2 is greater than 50. ~ the patient is receiving an opioid, has unintended sedations assessed as RASS (-3), and is currently not on mechanical ventilation. RASS scale moderate (-3) is movement or eye opening to voice but no eye contact. Patient Monitoring Once the patient has demonstrated a response to the naloxone, continue to monitor respiratory rate, depth, oxygen saturation and end-tidal CO2 (if available) every 15 minutes x 2, then every 30 minutes x 2, then every 1 hour x 1 after each naloxone dose. Consider transfer to ICU if patient respiratory parameters have not improved after 4 naloxone doses. naloxone (NARCAN) injection 0.4 mg(Linked Group 3) 0.4 mg, Intravenous, EVERY 2 MIN PRN, opioid reversal, Starting on Sat06/11/25 at 1202, Administer intravenous route when available and notify provider when administered. For unintended sedation or respiratory depression if all of the below criteria are met: ~ respiratory rate LESS than or EQUAL to 8. ~ SaO2 less than 92% and or/end-tidal CO2 is greater than 50. ~ the patient is receiving an opioid, has unintended sedation assessed as RASS (-4) or (-5) and patient is currently not on mechanical ventilation. RASS scale (-4) is deep sedation with no response to voice but movement or eye opening to physical stimulation. RASS scale (-5) is unarousable. Patient Monitoring Once the patient has demonstrated a response to the naloxone, continue to monitor respiratory rate, depth, oxygen saturation and end-tidal CO2 (if available) every 15 minutes x 2, then every 30 minutes x 2, then every 1 hour x 1 after each naloxone dose. Consider transfer to ICU if patient respiratory parameters have not improved after 4 naloxone doses. naloxone (NARCAN) injection 0.4 mg(Linked Group 3) 0.4 mg, Intramuscular, EVERY 2 MIN PRN, opioid reversal, Starting on Sat06/11/25 at 1202, Administer intramuscular if an intravenous route is not available and notify provider when administered. For unintended sedation or respiratory depression if all of the below criteria are met: ~ respiratory rate LESS than or EQUAL to 8. ~ SaO2 less than 92% and or/end-tidal CO2 is greater than 50. ~ the patient is receiving an opioid, has unintended sedation assessed as RASS (-4) or (-5) and patient is currently not on mechanical ventilation. RASS scale (-4) is deep sedation with no response to voice but movement or eye opening to physical stimulation. RASS scale (-5) is unarousable. Patient Monitoring Once the patient has demonstrated a response to the naloxone, continue to monitor respiratory rate, depth, oxygen saturation and end-tidal CO2 (if available) every 15 minutes x 2, then every 30 minutes x 2, then every 1 hour x 1 after each naloxone dose. Consider transfer to ICU if patient respiratory parameters have not improved after 4 naloxone doses. ondansetron (ZOFRAN ODT) ODT tab 4 mg(Linked Group 4) 4 mg, Oral, EVERY 6 HOURS PRN, nausea/vomiting - 1st line, Starting on Sat06/11/25 at 1148, This is Step 1 of nausea and vomiting management. If nausea not resolved in 15 minutes, go to Step 2 prochlorperazine (COMPAZINE). With dry hands, peel back foil backing and gently remove tablet. Do not push oral disintegrating tablet through foil backing. Administer immediately on tongue and oral disintegrating tablet dissolves in seconds, then swallow with saliva. Liquid not required. ondansetron (ZOFRAN) injection 4 mg(Linked Group 4) 4 mg, Intravenous, EVERY 6 HOURS PRN, nausea/vomiting - 2nd line, Administer over 2-5 Minutes, Starting on Sat06/11/25 at 1148, Give IF patient unable to tolerate oral medication. This is Step 1 of nausea and vomiting management. If nausea not resolved in 15 minutes, go to Step 2 prochlorperazine (COMPAZINE). simethicone (MYLICON) chewable tablet 80 mg 80 mg, Oral, EVERY 6 HOURS PRN, cramping, Starting on Sat06/11/25 at 1147 sodium chloride (PF) 0.9% PF flush 3 mL 3 mL, Intravenous, EVERY 1 HOUR PRN, line flush, post meds or blood draw, Starting on Sat06/11/25 at 1148, for peripheral IV line flush post IV meds sodium chloride (PF) 0.9% PF flush 3 mL 3 mL, Intravenous, EVERY 1 HOUR PRN, line flush, to lock peripheral IV dormant line., Starting on Sat06/11/25 at 1148, Also Ordered EVERY 8 HOURS. sodium chloride 0.9% irrigation (bag) (CANCELED) PRN, Starting on Sat06/11/25 at 1005, Intra-procedure 1005 ($Given - Provider: Tony Jorgensen MD) Linked Groups Order Group 1: HYDROmorphone (DILAUDID) half-tab 1 mgJump to med 1 mg, Oral, EVERY 4 HOURS PRN, moderate pain, Starting on Sat06/11/25 at 1148, Hold oral PRN dose for analgesic side effects. Notify provider to assess for uncontrolled pain or analgesic side effects. Hold while on IV [employer]WORK or with regular IV opioid dosing. Or HYDROmorphone (DILAUDID) tablet 2 mgJump to med 2 mg, Oral, EVERY 4 HOURS PRN, severe pain, Starting on Sat06/11/25 at 1148, Hold oral PRN dose for analgesic side effects. Notify provider to assess for uncontrolled pain or analgesic side effects. Hold while on IV [employer]WORK or with regular IV opioid dosing. Group 2: HYDROmorphone (DILAUDID) injection 0.1 mgJump to med 0.1 mg, Intravenous, EVERY 4 HOURS PRN, moderate pain, Starting on Sat06/11/25 at 1148, IF patient unable to take oral pain medication or pain not controlled with oral analgesics. Hold IV PRN opioid dose for analgesic side effects. Notify provider to assess for uncontrolled pain or analgesic side effects. Or HYDROmorphone (DILAUDID) injection 0.2 mgJump to med 0.2 mg, Intravenous, EVERY 4 HOURS PRN, severe pain, Starting on Sat06/11/25 at 1148, IF patient unable to take oral pain medication or pain not controlled with oral analgesics. Hold IV PRN opioid dose for analgesic side effects. Notify provider to assess for uncontrolled pain or analgesic side effects. Group 3: naloxone (NARCAN) injection 0.2 mgJump to med 0.2 mg, Intravenous, EVERY 2 MIN PRN, opioid reversal, Starting on Sat06/11/25 at 1202, Administer intravenous route when available and notify provider when administered. For unintended sedation or respiratory depression if all of the below criteria are met: ~ respiratory rate LESS than or EQUAL to 8. ~SaO2 less than 92% and or/end-tidal CO2 is greater than 50. ~ the patient is receiving an opioid, has unintended sedations assessed as RASS (-3), and is currently not on mechanical ventilation. RASS scale moderate (-3) is movement or eye opening to voice but no eye contact. Patient Monitoring Once the patient has demonstrated a response to the naloxone, continue to monitor respiratory rate, depth, oxygen saturation and end-tidal CO2 (if available) every 15 minutes x 2, then every 30 minutes x 2, then every 1 hour x 1 after each naloxone dose. Consider transfer to ICU if patient respiratory parameters have not improved after 4 naloxone doses. Or naloxone (NARCAN) injection 0.4 mgJump to med 0.4 mg, Intravenous, EVERY 2 MIN PRN, opioid reversal, Starting on Sat06/11/25 at 1202, Administer intravenous route when available and notify provider when administered. For unintended sedation or respiratory depression if all of the below criteria are met: ~ respiratory rate LESS than or EQUAL to 8. ~ SaO2 less than 92% and or/end-tidal CO2 is greater than 50. ~ the patient is receiving an opioid, has unintended sedation assessed as RASS (-4) or (-5) and patient is currently not on mechanical ventilation. RASS scale (-4) is deep sedation with no response to voice but movement or eye opening to physical stimulation. RASS scale (-5) is unarousable. Patient Monitoring Once the patient has demonstrated a response to the naloxone, continue to monitor respiratory rate, depth, oxygen saturation and end-tidal CO2 (if available) every 15 minutes x 2, then every 30 minutes x 2, then every 1 hour x 1 after each naloxone dose. Consider transfer to ICU if patient respiratory parameters have not improved after 4 naloxone doses. Or naloxone (NARCAN) injection 0.2 mgJump to med 0.2 mg, Intramuscular, EVERY 2 MIN PRN, opioid reversal, Starting on Sat06/11/25 at 1202, Administer intramuscular if an intravenous route is not available and notify provider when administered. For unintended sedation or respiratory depression if all of the below criteria are met: ~ respiratory rate LESS than or EQUAL to 8. ~SaO2 less than 92% and or/end-tidal CO2 is greater than 50. ~ the patient is receiving an opioid, has unintended sedations assessed as RASS (-3), and is currently not on mechanical ventilation. RASS scale moderate (-3) is movement or eye opening to voice but no eye contact. Patient Monitoring Once the patient has demonstrated a response to the naloxone, continue to monitor respiratory rate, depth, oxygen saturation and end-tidal CO2 (if available) every 15 minutes x 2, then every 30 minutes x 2, then every 1 hour x 1 after each naloxone dose. Consider transfer to ICU if patient respiratory parameters have not improved after 4 naloxone doses. Or naloxone (NARCAN) injection 0.4 mgJump to med 0.4 mg, Intramuscular, EVERY 2 MIN PRN, opioid reversal, Starting on Sat06/11/25 at 1202, Administer intramuscular if an intravenous route is not available and notify provider when administered. For unintended sedation or respiratory depression if all of the below criteria are met: ~ respiratory rate LESS than or EQUAL to 8. ~ SaO2 less than 92% and or/end-tidal CO2 is greater than 50. ~ the patient is receiving an opioid, has unintended sedation assessed as RASS (-4) or (-5) and patient is currently not on mechanical ventilation. RASS scale (-4) is deep sedation with no response to voice but movement or eye opening to physical stimulation. RASS scale (-5) is unarousable. Patient Monitoring Once the patient has demonstrated a response to the naloxone, continue to monitor respiratory rate, depth, oxygen saturation and end-tidal CO2 (if available) every 15 minutes x 2, then every 30 minutes x 2, then every 1 hour x 1 after each naloxone dose. Consider transfer to ICU if patient respiratory parameters have not improved after 4 naloxone doses. Group 4: ondansetron (ZOFRAN ODT) ODT tab 4 mgJump to med 4 mg, Oral, EVERY 6 HOURS PRN, nausea/vomiting - 1st line, Starting on Sat06/11/25 at 1148, This is Step 1 of nausea and vomiting management. If nausea not resolved in 15 minutes, go to Step 2 prochlorperazine (COMPAZINE). With dry hands, peel back foil backing and gently remove tablet. Do not push oral disintegrating tablet through foil backing. Administer immediately on tongue and oral disintegrating tablet dissolves in seconds, then swallow with saliva. Liquid not required. Or ondansetron (ZOFRAN) injection 4 mgJump to med 4 mg, Intravenous, EVERY 6 HOURS PRN, nausea/vomiting - 2nd line, Administer over 2-5 Minutes, Starting on Sat06/11/25 at 1148, Give IF patient unable to tolerate oral medication. This is Step 1 of nausea and vomiting management. If nausea not resolved in 15 minutes, go to Step 2 prochlorperazine (COMPAZINE). documented in this encounter Care Teams [employer] Relationship Specialty Start Date End Date Debi Oliva MD [address] [place] [address] PCP - General Family Medicine 05/14/25 documented as of this encounter
--- OUTSIDE RECORDS SUMMARY | 2025-06-11 06:28 | XMS_ITS | Encounter Summary ---
Author Organization [facility] Address [address] [facility] [place] [address] Care Team Providers Care Regulatory Services Consultant Name Role Phone Debi Oliva MD Primary Care Provider [phone] Reason for Visit * Auth/Cert Specialty Diagnoses / Procedures Referred By Contbinu t Referred To Contact Surgery Diagnoses Prolapse, post-hysterectomy Stress incontinence, female Enterocele Incomplete defecation Rectocele Prolapse, post-hysterectomy [N99.3] Stress incontinence, female [N39.3] Enterocele [K46.9] Incomplete defecation [R15.0] Rectocele [N81.6] Procedures AL REMOVE VAGINA WALL, PARTIAL AL COMPLETE REMOVAL OF VAGINA WALL AL CLOSURE OF VAGINA AL COMBINED ANT/POST COLPORRHAPHY AL LAPAROSCOPY, SURGICAL; SLING OPERATION FOR STRESS INCONTINENCE AL CYSTOURETHROSCOPY AL REPR VAGINAL PROLAPSE,SACROSP LIG AL COLPOPEXY, VAGINAL; INTRA-PERITONEAL APPROACH (UTEROSACRAL, LEVATOR MYORRHAPHY) AL SLING OPERATION FOR STRESS INCONTINENCE complete colpectomy; anterior repair, posterior repair, enterocele repair, levator pelvic floor muscle plication; perineorrhaphy; possible retropubic midurethral sling placement and cystoscopy Marsha Lozano MD [facility] [address] [facility] [address] [place] [address] Phone: tel: fax: [facility] [address] [place] [address] Phone: tel: fax: Referral ID Status Reason Start Date Expiration Date Visits Re quested Visits Authorized [id number] 1 1 Encounter Details Date Type Department Care Team (Late st Contact Info) Description 06/11/2025 7:28 AM CDT Anesthesia Event M [facility] [address] [place] [address] Clarence Braxton MD [facility] [id number] [facility] [address] [place], [place] [id number] Anesthesia Record Procedure Summary Procedure Name Responsible Anesthesiologist Anesthesia Start Time Anesthesia Stop Time complete colpectomy; (Vagina) Clarence Braxton MD 06/11/25 0728 06/11/25 1023 Events Date Time Event Comment 06/11/2025 0653 0700 SYSTEMS LEAD Ready for Procedure 0728 An Start Anesthesia Star t is defined as when the anesthesia provider assumed care, began anesthesia prep, remained continuously present with the patient, and excludes all time for performing the pre-anesthesia evaluation. The Pre-Anesthesia Evaluation was completed before Anesthesia Start. 0731 An Start Data 0731 AN REASSESS I attest that I have identified and re-evaluated the patient immediately before the induction of anesthesia and I am satisfied that the anesthetic plan is suitable for the patient's condition and procedure. The first vital signs recorded are pre-induction. Nicci Ibarra APRN SYSTEMS LEAD 0731 An Induction 0740 MD Present 0745 An Intubation 0745 MD Present 0800 Anesthesia Ready for Procedu re 0801 AN INCISION 0850 MD Present 0941 MD Present 1011 AN Extubation All extubation criteria met prior to removal. 1018 an stop data 1023 Present 1023 An Stop Electronically signed by Nicci Ibarra APRN SYSTEMS LEAD on June 11, 2025 10:23 AM Meds Name Total fentaNYL 50 mcg/mL 100 mcg ketorolac 30 mg/mL 15 mg lidocaine 2% 50 mg propofol 10 mg/mL 150 mg rocuronium 10 mg/mL 65 mg ePHEDrine 5 mg/mL in NS 25 mg phenylephrine (KASH-SYNEPHRINE) injection 550 mcg dexamethasone (DECADRON) 4 mg/mL 4 mg ondansetron 2 mg/mL 4 mg glycopyrrolate 0.2 mg/mL 0.2 mg sugammadex (BRIDION) 200mg/2mL 200 mg ceFAZolin Sodium (ANCEF) injection 2 g 2 g phenylephrine 0.1 mg/mL infusion (mcg/kg /min) 0.97 mg furosemide 10 mg/mL 10 mg LR 1,600 mL * Agents Name O2 N2O Air Exp Sevoflurane Exp Isoflurane Exp Desflurane Ins Sevoflurane Ins Isoflurane Ins Desflurane * Blood No blood administrations on file. Lines, Drains, and Airways Type Details Placement Removal Incision/Surgical Site Incision; 5; 0809; Vagina; peripad 06/11/25 0809 by Ara Hayes RN Incision/Surgical Site Incision; 5; 1015; Bilateral; Pubis; GLUE X 2 SITES 06/11/25 1015 by Ara Hayes RN ETT Placement Date: 06/11/25; Placement Time: 0745 (created via procedure documentation); Mask Ventilation: 1; Induction Type: Intravenous; Ease of Intubation: Easy; Technique: Direct laryngoscopy; Tube Size: 7 mm; DL Blade Size: Molina 2; Grade View: 1; Adjucts: Stylet; Placement Person: SYSTEMS LEAD; Attempts: 1 06/11/25 0745 by Nicci Ibarra APRN SYSTEMS LEAD 06/11/25 1011 by Nicci Ibarra APRN SYSTEMS LEAD Urinary Drain 06/11/25; 0801; Urethral Catheter; No; Surgical procedure 06/11/25 0801 by Ara Hayes RN 06/12/25 1924 by Inpatient, Nurse Peripheral IV 06/11/25; 1019 (present on arrival in pacu); Right, Dorsal; Hand 06/11/25 1019 by Janette Wolf, RN 06/12/25 1315 by Angelica Oropeza RN documented in this encounter Social History Tobacco Use Types Packs/Day Years Used Date Smoking Tobacco: Former Cigarettes Smokeless Tobacco: Never Alcohol Use Standard Drinks/Week Comments Yes 0 [...] Date Recorded Do you have housing? (Finesse orellana is defined as stable permanent housing and does not include staying outside in a car, in a tent, in an abandoned building, in an overnight custodial, or couch-surfing.) Yes 06/11/2025 Are you worried [...] on file documented as of this encounter OR Notes * Anesthesia Postprocedure Evaluation - Clarence Braxton MD - 06/11/2025 11:49 AM CDT Patient: Shaila Tatum Procedure: Procedure(s): complete colpectomy; anterior repair, posterior repair, enterocele repair, levator pelvic floor muscle plication; perineorrhaphy; retropubic midurethral sling placement and cystoscopy Anesthesia Type: General Note: Disposition: Outpatient Postop Pain Control: Uneventful Sign Out: Well controlled pain PONV: No Neuro/Psych: Uneventful Sign Out: Acceptable/Baseline neuro status Airway/Respiratory: Uneventful Sign Out: Acceptable/Baseline resp. status CV/Hemodynamics: Uneventful Sign Out: Acceptable CV status; No obvious hypovolemia; No obvious fluid overload Other NRE: NONE DID A NON-ROUTINE EVENT OCCUR? No Last vitals: Vitals Value Taken Time BP 119/58 06/11/25 11:00 Temp 96.44 ??F (35.8 ??C) 06/11/25 11:12 Pulse 52 06/11/25 11:12 Resp 6 06/11/25 11:12 SpO2 100 % 06/11/25 11:11 Vitals shown include unfiled device data. Electronically Signed By: Clarence Braxton MD June 11, 2025 11:49 AM * Anesthesia Procedure Notes - Nicci Ibarra APRN CRNA - 06/11/2025 8:02 AM CDTAssociated Order(s): Airway Airway Patient location during procedure: OR Procedure Start/Stop Times: 06/11/2025 7:45 AM Staff - Anesthesiologist: Nicci Ibarra APRN CRNA Performed By: SYSTEMS LEAD Consent for Airway Urgency: elective Indications and Patient Condition Indications for airway management: kristofer-procedural Induction type:intravenous Mask difficulty assessment: 1 - vent by mask Final Airway Details Final airway type: endotracheal airway Successful airway: ETT - single and Oral Endotracheal Airway Details ETT size (mm): 7.0 Cuffed: yes Successful intubation technique: direct laryngoscopy DL Blade Type: Molina 2 Grade View of Cords: 1 Adjucts: stylet Position: Right Bite block used: Soft Post intubation assessment Placement verified by: capnometry, equal breath sounds and chest rise Number of attempts at approach: 1 Secured with: tape Ease of procedure: easy Dentition: Intact Medication(s) Administered Medication Administration Time: 06/11/2025 7:45 AM * Anesthesia Preprocedure Evaluation - Clarence Braxton MD - 06/11/2025 6:51 AM CDT Anesthesia Pre-Procedure Evaluation Patient: Shaila Tatum : 1940 Procedure : Procedure(s): complete colpectomy; anterior repair, posterior repair, enterocele repair, levator pelvic floor muscle plication; perineorrhaphy; possible retropubic midurethral sling placement and cystoscopy Past Medical History: Diagnosis Date Hypertension Thyroid disease Past Surgical History: Procedure Laterality Date APPENDECTOMY BREAST SURGERY COLONOSCOPY 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 Wt Readings from Last 1 Encounters: 06/11/25 79 kg (174 lb 1.6 oz) Anesthesia Evaluation ROS/MED HX ENT/Pulmonary: Neurologic: Cardiovascular: (+) Dyslipidemia hypertension- - - - - METS/Exercise Tolerance: Hematologic: Musculoskeletal: (+) arthritis, GI/Hepatic: Renal/Genitourinary: Comment: Pelvic floor dysfunction Endo: (+) thyroid problem, hypothyroidism, Psychiatric/Substance Use: Infectious Disease: Malignancy: Other: Physical Exam Airway Mallampati: II TM distance: >3 FB Neck ROM: full Mouth opening: >= 4 cm Cardiovascular - normal exam Dental (+) Minor Abnormalities - some fillings, tiny chips Pulmonary - normal exam Neurological Other Findings OUTSIDE LABS: CBC: Lab Results Component Value Date HGB 12.3 06/11/2025 BMP: Lab Results Component Value Date GLC 89 06/11/2025 COAGS: No results found for: PTT, INR, FIBR POC: No results found for: BGM, HCG, HCGS HEPATIC: No results found for: ALBUMIN, PROTTOTAL, ALT, AST, GGT, ALKPHOS, BILITOTAL,BILIDIRECT, YEN OTHER: No results found for: PH, LACT, A1C, ALEX, PHOS, MAG, LIPASE, AMYLASE, TSH,T4, T3, CRP, SED Anesthesia Plan ASA Status: 2 NPO Status: NPO Appropriate Anesthesia Type: General. Induction: intravenous. Maintenance: Balanced. Techniques and Equipment: - Monitoring Plan: standard ASA monitoring Consents Anesthesia Plan(s) and associated risks, benefits, and realistic alternatives discussed. Questions answered and patient/union representative(s) expressed understanding. - Discussed: anesthesiologist - Discussed with: Patient - Pt is DNR/DNI Status: no DNR Blood Consent: - Discussed with: patient. Postoperative Care Pain management: plan for postoperative opioid use. Comments: Clarence Braxton MD I have reviewed the pertinent notes and labs in the chart from the past 30 days and (re)examined the patient. Any updates or changes from those notes are reflected in this note. Clinically Significant Risk Factors Present on Admission # Obesity: Estimated body mass index is 31.84 kg/m?? as calculated from the following: Height as of this encounter: 1.575 m (5' 2.01). Weight as of this encounter: 79 kg (174 lb 1.6 oz). [1] No Known Allergies documented in this encounter Miscellaneous Notes * Anesthesia Care Transfer Note - Nicci Ibarra APRN SYSTEMS LEAD - 06/11/2025 10:23 AM CDT Patient: Shaila Tatum Procedure: Procedure(s): complete colpectomy; anterior repair, posterior repair, enterocele repair, levator pelvic floor muscle plication; perineorrhaphy; retropubic midurethral sling placement and cystoscopy Diagnosis: Prolapse, post-hysterectomy [N99.3] Stress incontinence, female [N39.3] Enterocele [K46.9] Incomplete defecation [R15.0] Rectocele [N81.6] Diagnosis Additional Information: No value filed. Anesthesia Type: General Note: Oropharynx: oropharynx clear of all foreign objects and spontaneously breathing Level of Consciousness: awake Oxygen Supplementation: face mask Independent Airway: airway patency satisfactory and stable Dentition: dentition unchanged Vital Signs Stable: post-procedure vital signs reviewed and stable Report to RN Given: handoff report given Patient transferred to: PACU Comments: Report and signed off to RN in PACU. Good Resps, skin pink, VSS, O2 via face tent. Handoff Report: Identifed the Patient, Identified the Reponsible Provider, Reviewed the pertinent medical history, Discussed the surgical course, Reviewed Intra-OP anesthesia mangement and issues during anesthesia, Set expectations for post-procedure period and Allowed opportunity for questions andacknowledgement of understanding Vitals: Vitals Value Taken Time BP 114/42 06/11/25 10:19 Temp Pulse 62 06/11/25 10:22 Resp 0 06/11/25 10:22 SpO2 100 % 06/11/25 10:22 Vitals shown include unfiled device data. Electronically Signed By: Nicci Ibarra APRN CRNA June 11, 2025 10:23 AM documented in this encounter Plan of Treatment Not on file documented as of this encounter Procedures Procedure Name Priority Date/Time Associated Diagnosis Comments ANE AIRWAY ETT PERFORMABLE Routine 06/11/2025 7:45 AM CDT documented in this encounter Results * ANE AIRWAY ETT PERFORMABLE (06/11/2025 7:45 AM CDT) Narrative Nicci Ibarra APRN CRNA - 06/11/2025 7:45 AM CDT Nicci Ibarra APRN CRNA 06/11/2025 8:03 AM Airway Patient location during procedure: OR Procedure Start/Stop Times: 06/11/2025 7:45 AM Staff - Anesthesiologist: Nicci Ibarra APRN CRNA Performed By: CATARINO Consent for Airway Urgency: elective Indications and Patient Condition Indications for airway management: kristofer-procedural Induction type:intravenous Mask difficulty assessment: 1 - vent by mask Final Airway Details Final airway type: endotracheal airway Successful airway: ETT - single and Oral Endotracheal Airway Details ETT size (mm): 7.0 Cuffed: yes Successful intubation technique: direct laryngoscopy DL Blade Type: Molina 2 Grade View of Cords: 1 Adjucts: stylet Position: Right Bite block used: Soft Post intubation assessment Placement verified by: capnometry, equal breath sounds and chest rise Number of attempts at approach: 1 Secured with: tape Ease of procedure: easy Dentition: Intact Medication(s) Administered Medication Administration Time: 06/11/2025 7:45 AM us Clarence Braxton MD [facility] Final Result documented in this encounter Visit Diagnoses Not on filedocumented in this encounter Administered Medications Inactive Administered Medications - up to 3 most recent administrations Medication Order MAR Action Action Date Dose Rate Site ceFAZolin Sodium (ANCEF) injection 2 g Routine, 2 g, Intravenous, PRE-OP/PRE-PROCEDURE, Starting on Sat06/11/25 at 0547, For 1 dose, Give first dose within 1 hour PRIOR to incision. If patient weight is greater than or equal to 120 kg increase dose to 3 g., Indications: Perioperative Pharmacoprophylaxis, Pre-procedureIndications:Perioperati ve Pharmacoprophylaxis $Given 06/11/2025 7:28 AM CDT 2 g dexAMETHasone (DECADRON) injection Intravenous, PRN, Administer over 1 Minutes, Starting on Sat06/11/25 at 0807, Anesthesia Intra-op $Given 06/11/2025 8:07 AM CDT 4 mg ePHEDrine injection Intravenous, PRN, Starting on Sat06/11/25 at 0750, Anesthesia Intra-op $Given 06/11/2025 8:55 AM CDT 5 mg $Given 06/11/2025 8:46 AM CDT 5 mg $Given 06/11/2025 8:32 AM CDT 5 mg fentaNYL (PF) (SUBLIMAZE) injection Intravenous, PRN, Administer over 3-5 Minutes, Starting on Sat06/11/25 at 0745, Anesthesia Intra-op $Given 06/11/2025 7:45 AM CDT 100 mcg furosemide (LASIX) injection Intravenous, PRN, Starting on Sat06/11/25 at 0934, Anesthesia Intra-op $Given 06/11/2025 9:34 AM CDT 10 mg glycopyrrolate (ROBINUL) injection Intravenous, PRN, Administer over 1-2 Minutes, Starting on Sat06/11/25 at 0747, Anesthesia Intra-op $Given 06/11/2025 7:47 AM CDT 0.2 mg ketorolac (TORADOL) injection Intravenous, PRN, Administer over 2 Minutes, Starting on Sat06/11/25 at 1014, Anesthesia Intra-op $Given 06/11/2025 10:14 AM CDT 15 mg lactated ringers infusion Intravenous, CONTINUOUS PRN, Anesthesia Intra-op, Starting on Sat06/11/25 at 0728, Until Sat06/11/25 at 1023 $New Bag 06/11/2025 9:39 AM CDT $New Bag 06/11/2025 7:28 AM CDT lidocaine 2% injection (MDV) Intravenous, PRN, Starting on Sat06/11/25 at 0745, Anesthesia Intra-op $Given 06/11/2025 7:45 AM CDT 50 mg ondansetron (ZOFRAN) injection Intravenous, PRN, Administer over 2-5 Minutes, Starting on Sat06/11/25 at 0807, Anesthesia Intra-op $Given 06/11/2025 8:07 AM CDT 4 mg phenylephrine (KASH-SYNEPHRINE) injection Intravenous, CONTINUOUS PRN, Starting on Sat06/11/25 at 0747, Anesthesia Intra-op $Bolus 06/11/2025 9:07 AM CDT 100 mcg $Bolus 06/11/2025 8:02 AM CDT 150 mcg $Bolus 06/11/2025 7:51 AM CDT 100 mcg phenylephrine 0.1 mg/mL infusion (mcg/kg/min) Intravenous, CONTINUOUS PRN, Starting on Sat06/11/25 at 0912, Anesthesia Intra-op Rate/Dose Change 06/11/2025 9:44 AM CDT 0.1 mcg/kg/min 4.74 mL/hr Rate/Dose Change 06/11/2025 9:31 AM CDT 0.2 mcg/kg/min 9.4 8 mL/hr Rate/Dose Change 06/11/2025 9:19 AM CDT 0.3 mcg/kg/min 14. 22 mL/hr propofol (DIPRIVAN) injection 10 mg/mL vial Intravenous, PRN, Starting on Sat06/11/25 at 0745, Anesthesia Intra-op $Given 06/11/2025 9:01 AM CDT 50 mg $Given 06/11/2025 7:45 AM CDT 100 mg rocuronium injection Intravenous, PRN, Starting on Sat06/11/25 at 0745, Anesthesia Intra-op $Given 06/11/2025 9:29 AM CDT 15 mg $Given 06/11/2025 7:45 AM CDT 50 mg sugammadex (BRIDION) injection Intravenous, PRN, Starting on Sat06/11/25 at 1005, Anesthesia Intra-op $Given 06/11/2025 10:05 AM CDT 200 mg documented in this encounter Care Teams Regulatory Services Consultant Relationship Specialty Start Date End Date Debi Oliva MD [address] [place] [address] PCP - General Family Medicine 05/14/25 documented as of this encounter
--- OUTSIDE RECORDS SUMMARY | 2025-06-11 06:30 | XMS_ITS | Encounter Summary ---
Author Organization [facility] Address [address] [facility] [place] [address] Care Team Providers Care Digital Asset Coordinator Name Role Phone Debi Oliva MD Primary Care Provider [phone] Reason for Visit * Auth/Cert Specialty Diagnoses / Procedures Referred By Contbinu t Referred To Contact Surgery Diagnoses Prolapse, post-hysterectomy Stress incontinence, female Enterocele Incomplete defecation Rectocele Prolapse, post-hysterectomy [N99.3] Stress incontinence, female [N39.3] Enterocele [K46.9] Incomplete defecation [R15.0] Rectocele [N81.6] Procedures RI REMOVE VAGINA WALL, PARTIAL RI COMPLETE REMOVAL OF VAGINA WALL RI CLOSURE OF VAGINA RI COMBINED ANT/POST COLPORRHAPHY RI LAPAROSCOPY, SURGICAL; SLING OPERATION FOR STRESS INCONTINENCE RI CYSTOURETHROSCOPY RI REPR VAGINAL PROLAPSE,SACROSP LIG RI COLPOPEXY, VAGINAL; INTRA-PERITONEAL APPROACH (UTEROSACRAL, LEVATOR MYORRHAPHY) RI SLING OPERATION FOR STRESS INCONTINENCE complete colpectomy; anterior repair, posterior repair, enterocele repair, levator pelvic floor muscle plication; perineorrhaphy; possible retropubic midurethral sling placement and cystoscopy Tony Jorgensen MD [facility] [address] [facility] [address] [place] [address] Phone: tel: fax: [facility] [address] [place] [address] Phone: tel: fax: Referral ID Status Reason Start Date Expiration Date Visits Re quested Visits Authorized [id number] 1 1 Encounter Details Date Type Department Care Team (Late st Contact Info) Description 06/11/2025 7:30 AM CDT - 06/11/2025 10:00 AM CDT Surgery [facility] [address] [place] [address] Tony Jorgensen MD [facility] [address] [facility] [address] [place] [address] complete colpectomy; Surgery Details Date/Time Status Location OR Service Patient Class Case Class Case Type Trauma Case? 06/11/2025 7:30 AM Posted [facility] OR OR 02 Gynecology Surgery Admit Elective Panel 1 Procedure LRB Anes Op Region Wound Class Comments complete colpectomy; N/A General Vagina II-Clean Contaminated anterior repair, posterior repair, enterocele repair, levator pelvic floor muscle plication; perineorrhaphy; N/A General Perineum II-Clean Conta minated retropubic midurethral sling placement and cystoscopy N/A General Vagina II-Clean Contami nated Surgeon Surgeon Role Service Panel Tony Jorgensen MD Primary Gynecology 1 Special Needs Please have daughter sign consent to communicate dos.150min documented in this encounter Social History Tobacco [...] Answer Date Recorded Do you have housing? (Housin g is defined as stable permanent housing and does not include staying outside in a car, in a tent, in an abandoned building, in an overnight long term, or couch-surfing.) Yes 06/11/2025 Are you worried [...] Sign Reading Time Taken Comments Blood Pressure 152/67 06/11/2025 5:46 AM CDT Pulse 70 06/11/2025 5:46 AM CDT Temperature 36.2 C (97.2 F) 06/11/2025 5:46 AM CDT Respiratory Rate 16 06/11/2025 5:46 AM CDT Oxygen Saturation 99% 06/11/2025 5:46 AM CDT Inhaled Oxygen Concentration - - [...] PRESCRIPTIONS REVIEWED/WRITTEN INSTRUCTIONS PROVIDED. TONY JORGENSEN MD MASTER/MISTRESS documented in this encounter Discharge Instructions * [...] call my doctor? Call Dr. Jorgensen call [phone] if you have: (for urgent questions/concerns CELL PHONE [phone]) -Any post-operative questions or concerns -A fever [...] daily for 7 days. 14 tablet 06/12/2025 5 HYDROmorphone (DILAUDID) 2 MG tabletIndication s:Post-operative state [...] abd, but denies any real pain, From Indep living facility, reg diet, A1 GB FWW, [...] Minimize Safety Risk Recent Flowsheet Documentation Taken 06/12/2025 0800 by Angelica Oropeza RN Enhanced Safety Measures: [...] abd, but denies any real pain, From Indep living facility, reg diet, A1 GB FWW, [...] Bello RN - 06/12/2025 3:52 AM CDT [id number] Inpatient Progress Note: BP 121/47 (BP Location: [...] Labs: hgb in am Diet: Reg Consults: Batch Attendant Discharge Plan: Home ([facility]) Monitor [...] - 06/11/2025 5:00 PM CDT Care from [phone] Inpatient Progress Note: For complete assessment see [...] Manage Fall Risk Recent Flowsheet Documentation Taken 06/11/2025 131 by Afshan Johnson RN Safety Promotion/Fall Prevention: clutter-free environment maintained nonskid shoes/slippers when out of bed safety round/check completed Intervention: Prevent Skin Injury Recent Flowsheet Documentation Taken 06/11/2025 1146 by Afshan Johnson RN Body Position: supine Intervention: Prevent and Manage VTE (Venous Thromboembolism) Risk Recent Flowsheet Documentation Taken 06/11/2025 1319 by Afshan Johnson RN VTE Prevention/Management: SCDs on (sequential compression devices) Goal: Optimal Comfort and Wellbeing Outcome: Progressing Goal: Readiness for Transition of Care Outcome: Progressing Problem: Fall Injury Risk Goal: Absence of Fall and Fall-Related Injury Outcome: Progressing Intervention: Identify and Manage Contributors Recent Flowsheet Documentation Taken 06/11/2025 1319 by [...] Optimize Anesthesia Recovery Recent Flowsheet Documentation Taken 06/11/20251318 by Afshan [...] Blood Pressure Management Recent Flowsheet Documentation Taken 06/11/20251318 by Afshan Johnson RN Medication Review/Management: medications reviewed * Plan of Care - Afshan Johnson RN - 06/11/2025 11:54 AM CDT ROOM # 202-2 Living Situation (if not independent, order SW consult): IND living Facility name:[facility] machine repair person: Daughter- Moni Activity level at baseline: Ind, walker at [...] CDT OPERATIVE REPORT NAME: Shaila Tatum MR#: [id number] : 1940 DATE OF OPERATION: June 11, [...] Perineorrhaphy 6. Retropubic midurethral sling 6. Cystourethroscopy WIRE FENCE BUILDER: EA skilled reading assistant, ZOEY Sandoval, was necessary for this procedure for assistance withpatient positioning, prepping, draping, surgical visualization, performance of the repairs, wound closure and dressing application. The reading assistant was present for the entire procedure. ANESTHESIA: GET ESTIMATED BLOOD LOSS: 150 ml IV FLUIDS: 1500 ml of crystalloid. COMPLICATIONS: None DRAINS: 16-Libyan Wilkes catheter to gravity drainage PACKING: None [...] had been performed, the Advantage Fit device (Jumbas) was selected and loaded. The trocar was [...] injuries or other abnormalities. She had a 16-Libyan Wilkes catheter present to gravity drainage. Sponge, lap, and needle counts were found be correct. There were no complications from surgery. The patient was awoken from anesthesia and brought to the recovery room in excellent condition. * Pharmacy-Admission Medication History - Brigitte Garland Chrissy - 06/09/2025 1:12 PM CDT Medication reconciliation interview completed by pre-admitting nurse, reviewed by pharmacy. No further clarifications needed. Prior to Admission medications Medication Sig Last Dose Taking? Auth Provider Director Quality Systems End Date amLODIPine (NORVASC) 5 MG tablet [...] 7:44 AM CDT 06/12/2025 7:51 AM CDT us Tony [facility]orgensen MD [facility] Final Result LABORATORY [facility] Acute Care Lab [address] [facility] Lab (1st floor, no room number) [place] [address], [facility] * (ABNORMAL) Basic Metabolic Panel (Limited Occurrences) (06/12/2025 6:50 AM CDT) Pathologist [facility] Sodium 133(L) 135 - 145 mmol/L 06/12/2025 [...] - 0.95 mg/dL 06/12/2025 7:19 AM CDT LABORATORY GFR Estimate 60(L) >60 mL/min/1.7 3m2 06/12/2025 7:19 AM CDT LABORATORY Comment:eGFR calculated usin g 2020 CKD-EPI equation. Calcium 8.6(L) 8.8 - 10.4 mg/dL 06/12/2025 7:19 AM CDT LABORATORY Glucose 124(H) 70 - 99 mg/dL 06/12/2025 7:19 AM CDT LABORATORY Blood STRUCTURE OF LEFT UPPER LIMB / Unknown Venipuncture / Unknown 06/12/2025 6:50 AM CDT 06/12/2025 6:54 AM CDT us Tony Jorgensen MD LAB - BLOOD ORDERABLES F inal Result LABORATORY [facility] Acute Care Lab [address] [facility] Lab (1st floor, no room number) [place] [address], [facility] * (ABNORMAL) Hemoglobin (06/12/2025 6:50 AM CDT) Hemoglobin 10.4(L) 11.7 - 15.7 g/dL 06/12/2025 6:56 AM CDT LABORATORY MCV 95.4 78.0 - 100.0 fL 06/12/2025 6:56 AM CDT LABORATORY Blood STRUCTURE OF LEFT UPPER LIMB / Unknown Venipuncture / Unknown 06/12/2025 6:50 AM CDT 06/12/2025 6:54 AM CDT Tony Jorgensen MD LAB - BLOOD ORDERABLES F inal Result [facility] Acute Care Lab [address] Lab (1st floor, no room number) [place] [phone] * Extra Green Top (Mathis Heparin) Tube (06/11/2025 6:31 AM CDT) Hold Specimen JIC 06/11/2025 7:46 AM CDT RH LABORATORY Blood STRUCTURE OF LEFT UPPER LIMB / Unknown Venipuncture / Unknown 06/11/2025 6:31 AM CDT 06/11/2025 6:36 AM CDT Tony Jorgensen MD LAB - BLOOD ORDERABLES F inal Result [facility] Care Lab [address] Lab (1st floor, no room number) [place] [phone] * Hemoglobin (06/11/2025 6:31 AM CDT) Hemoglobin 12.3 11.7 - 15.7 g/dL 06/11/2025 6:39 AM CDT LABORATORY MCV 95.7 78.0 - 100.0 fL 06/11/2025 6:39 AM CDT RH LABORATORY Blood STRUCTURE OF LEFT UPPER LIMB / Unknown Venipuncture / Unknown 06/11/2025 6:31 AM CDT 06/11/2025 6:35 AM CDT Tony Jorgensen MD LAB - BLOOD ORDERABLES F inal Result [facility] Care Lab [address] Lab (1st floor, no room number) [place] [phone] * Glucose by meter (06/11/2025 5:42 AM CDT) GLUCOSE BY METER POCT 89 70 - 99 mg/dL 06/11/2025 5:49 AM CDT RH LABORATORY POC Blood, Capillary BLOOD SPECIMEN / Unknown 06/11/2025 5:42 AM CDT 06/11/2025 5:49 AM CDT Tony Jorgensen MD LAB - [facility] POCT Final Result LABORATORY POC [facility] [address] [facility] ([facility], no room number) [place] [address] documented in this encounter Visit Diagnoses Diagnosis Post-operative state- Primary Other postprocedural status Prolapse, 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 Stress incontinence, female Female stress incontinence Enterocele Hernia of unspecified site of abdominal cavity without mention of obstruction or gangrene Incomplete defecation Rectocele documented in this encounter Admitting Diagnoses Diagnosis [...] $Given 06/11/2025 12:21 PM CDT 650 mg amLODIPine (NORVASC) tablet 5 mg 5 mg, Oral, DAILY, First dose on Sat06/12/25 at 0800 $Given 06/12/2025 7:45 AM CDT 5 mg bacitracin ointment PRN, Starting on Sat06/11/25 at 1008, Intra-procedure $Given 06/11/2025 10:08 AM CDT 1 Application Operative Site/Surgical Site BUPivacaine (MARCAINE) 0.5 % 30 mL, lidocaine 1% with EPINEPHrine 1:100,000 30 mL in sodium chloride 0.9% (bottle) 40 mL OR mixture PRN, Starting on Sat06/11/25 at 1006, Intra-procedure $Given 06/11/2025 10:06 AM CDT 85 mLs Operative Site/Surgical Site HYDROmorphone (DILAUDID) half-tab 1 mg 1 mg, Oral, EVERY 4 HOURS PRN, moderate pain, Starting on Sat06/11/25 at 1148, Hold oral PRN dose for analgesic side effects. Notify provider to assess for uncontrolled pain or analgesic side effects. Hold while on IV LAWYER or with regular IV opioid dosing. HYDROmorphone [...] analgesic side effects. Hold while on IV LAWYER or with regular IV opioid dosing. levothyroxine (SYNTHROID/LEVOTHROID) tablet 25 mcg 25 mcg, Oral, DAILY, First dose on 06/12/25 at 0730, Separate oral administration of iron- [...] minutes, go to Step 2 prochlorperazine (COMPAZINE). polyethylene glycol (MIRALAX) Packet 17 g 17 [...] 40 mg, Oral, DAILY, First dose on Sat06/12/25 at 0800 $Given 06/12/2025 7:51 AM CDT [...] Sat06/11/25 at 1200, Until 06/12/25 at 2024 $New Bag 06/11/2025 12:21 PM CDT 100 mL/hr sodium chloride 0.9% irrigation (bag) PRN, Starting on Sat06/11/25 at 1005, Intra-procedure $Given 06/11/2025 10:05 AM CDT 500 mLs Operative Site/Surgical Site documented in this encounter Active and Recently [...] room with small sip of water., Pre-procedure 0606 ($Given - Provider: Wendi Osborne RN) polyethylene [...] 06/12/25 at 0800 0751 ($Given - Provi jh: Emily Peterson) sodium chloride (PF) 0.9% PF [...] analgesic side effects. Hold while on IV LAWYER or with regular IV opioid dosing. HYDROmorphone [...] analgesic side effects. Hold while on IV LAWYER or with regular IV opioid dosing. meclizine [...] analgesic side effects. Hold while on IV LAWYER or with regular IV opioid dosing. Or HYDROmorphone (DILAUDID) tablet 2 mgJump to med 2 mg, Oral, EVERY 4 HOURS PRN, severe pain, Starting on Sat06/11/25 at 1148, Hold oral PRN dose for analgesic side effects. Notify provider to assess for uncontrolled pain or analgesic side effects. Hold while on IV LAWYER or with regular IV opioid dosing. Group [...] (COMPAZINE). documented in this encounter Care Teams Digital Asset Coordinator Relationship Specialty Start Date End Date Debi Oliva MD [address] [place] [address] PCP - General Family Medicine 05/14/25 documented as of this encounter
--- OUTSIDE RECORDS SUMMARY | 2025-07-18 07:42 | XMS_ITS | Continuity of Care Document ---
Author Organization [place] [facility] Address [address] [facility] [address] [place] [address] Assessment Encounter Date Assessment Date Assessment LastModified by Organization Details LastModified Time 05/31/2025 05/31/2025 ASSESSMENT: Patient is a good candidate for conservative care and the prognosis is for a favorable outcome that achieves the patients' goals. We discussed etiology, activity modifications, home care, and other treatment options. Initially, it is recommended that the patient receive in-office treatment 1 times per week for 8 weeks at which time a re-evaluation will be performed to determine an appropriate change in plan. Initially, treatment will focus on joint manipulation to restore range of motion and reduce pain. We will slowly progress to therapeutic exercises and activities to improve function, strength, and stability may also be used as warranted. If the patient is not responding as expected, more invasive procedures will be discussed along with a referral. All considerations above were discussed with the patient and questions answered to satisfaction. If the patient should have any additional questions, or should the condition evolve or worsen, the patient should not hesitate to contact our office. ecram Not available 05/31/2025 14:31:22 Plan of Treatment Reminders Order Date Submit Date Provider Last Modified By Organization Details Last Modified Time Details Appointments DC Treatment 05 2024 09:00A M Mateusz Soriano DC Not available Not available Not available Lab None recorded. Referral None recorded. Procedures None recorded. Surgeries None recorded. Imaging None recorded. Medication Orders None recorded. Patient TargetsNo targets recorded. Patient InstructionsNo instructions recorded. Reason for Referral None Reported. 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 Procedures Surgical History Date Name Laterality Status Provider Name and Address Organization Details Recorded Time 5 70757: Spinal manipulation , 3 to 4 regions completed Mateusz Braxton HarleyarturPOLINA [address], [place], [address], [facility] 07/12/2025 09:09:37 5 [address]84[address]: Spinal manipulation , 3 to 4 regions completed Mateusz Braxton HarleyarturPOLINA [address], [place], [address], [facility] 06/25/2025 11:21:24 5 84911: Spinal manipulation , 3 to 4 regions completed Mateusz Braxton HarleyarturPOLINA [address], [place], [address], [facility] 06/21/2025 12:51:10 5 68082: Spinal manipulation , 3 to 4 regions completed Mateusz Braxton Harleyartur, POLINA [address], [place], [address], [facility] 05/31/2025 14:31:22 5 25342: Spinal manipulation , 3 to 4 regions completed Mateusz Soriano DC [address], [place], [address], [facility] 05/17/2025 16:22:17 60248: Spinal manipulation , 3 to 4 regions completed Mateusz Soriano DC [address], [place], [address], [facility] 05/10/2025 12:57:45 70566: Spinal manipulation , 3 to 4 regions completed Mateusz Soriano DC [address], [place], [address], [facility] 05/07/2025 14:04:36 Imaging Results None recorded. Procedure Notes None recorded. Medical Equipment None Reported. Medications Name Sig Start Date Stop Date Status Note LastModified by Organization Details LastModified Time ciprofloxacin 250 mg tablet TAKE 1 TABLET BY MOUTH TWICE DAILY FOR 5 DAYS active Not Available Not Available No t Available hydromorphone 2 mg tablet TAKE 1 TABLET BY MOUTH EVERY 4 HOURS FOR 3 DAYS active Not Available Not Available No t Available betamethasone valerate 0.1 % topical cream APPLY TOPICALLY TO THE AFFECTED AREA TWICE DAILY active Not Available Not Available No t Available Vitals None Recorded Social History None recorded. Functional Status None recorded. Mental Status None recorded. Family History Nothing Reported. Medical History No medical history recorded. Gynecological HistoryNo gynecological history recorded. Obstetrics History GPAL:G 0 P 0 0 0 0 Past Encounters Encounter ID Performer Location Encounter Start Date Encounter Closed Date Diagnosis/Indication Diagnosis SNOMED-CT Code Diagnosis ICD10 Code Diagnosis IMO Codes Diagnosis Note [id number] POLINA Benson [facility] [address] [facility] [place] [address] 05/07/2025 09:53:59 05/07/2025 15:07:54 Lumbar segmental dysfunction 240059687 M99.03 Low back pain 702200324 M54.50 Somatic dy sfunction of sacral spine 587137744 M99.04 Thoracic s egmental dysfunction 524251262 M99.02 [id number] POLINA Benson [facility] [address] [facility] [place] [address] 05/10/2025 12:15:14 05/10/2025 16:54:46 Lumbar segmental dysfunction 438850378 M99.03 Low back pain 455624244 M54.50 Somatic dy sfunction of sacral spine 930357165 M99.04 Thoracic s egmental dysfunction 933898945 M99.02 [id number] Mateusz Soriano DC [facility] [address] [place] [address] 05/17/2025 11:34:04 05/17/2025 18:49:33 Lumbar segmental dysfunction 207165201 M99.03 Low back pain 098506767 M54.50 Somatic dy sfunction of sacral spine 403166334 M99.04 Thoracic s egmental dysfunction 880182188 M99.02 [id number] Mateusz Soriano DC [address] [place] [address] 05/31/2025 11:16:27 05/31/2025 18:05:15 Lumbar segmental dysfunction 774455578 M99.03 Low back pain 852455811 M54.50 Somatic dy sfunction of sacral spine 635905233 M99.04 Thoracic s egmental dysfunction 038381170 M99.02 Health Concerns Section Related Observation LastModified by Organization Detai ls LastModified Time None Recorded Concern Status LastModified by Organization Details LastModified Time None Recorded Payers Encounter Date Sequence Insurance Name Policy Number Policy Ortiz Covered Member ID Ortiz Member ID Guarantor Name 05/31/2025 1 [facility]: (MEDICARE REPLACEMENT PPO) [id number] Shaila Tatum [id number] Shaila Tatum Notes Date Note Type Note Provider Name and Address Organization Details Recorded Time 05/31/2025 text/html HPI - Lumbar SpineReported by PatientHPIFor location, patient reportsbilateral(wi th radiation to knee). For quality, patient reportsaching. For severity, patient reportsmoderateands evere. For timing, patient reportscannot identify. For duration, patient reportsacute. For context, patient reportsbending,lift ing, andtwisting. For aggravating factors, patient reportslifting,twis ting, andbending/squattin g. For alleviating factors, patient reportsice. Mateusz Soriano DC [address], [place], [address], [facility] 05/31/2025 14:32:00 OBGyn Episode No OBEpisode recorded.
--- OUTSIDE RECORDS SUMMARY | 2025-07-18 07:42 | XMS_ITS | Data Portability ---
Author Organization [place] - [email or web address] e, autoContract - E [facility] Address [address] [facility] [address] [place] [address] Assessment Encounter Date Assessment Date Assessment LastModified by Organization Details LastModified Time 05/17/2025 05/17/2025 ASSESSMENT: Patient is a good candidate for [...] to contact our office. ecram Not available 05/17/2025 16:22:17 05/31/2025 05/31/2025 ASSESSMENT: Patient is a good [...] our office. ecram Not available 05/31/2025 14:31:22 06/21/2025 06/21/2025 ASSESSMENT: Patient is a good candidate for [...] to contact our office. ecram Not available 06/21/2025 12:51:10 06/25/2025 06/25/2025 ASSESSMENT: Patient is a good candidate for [...] to contact our office. ecram Not available 06/25/2025 11:21:24 07/12/2025 07/12/2025 ASSESSMENT: Patient is a good candidate for [...] to contact our office. ecram Not available 07/12/2025 09:09:37 Plan of Treatment Reminders Order Date Submit [...] Organization Details Recorded Time Thoracic segmental dysfunction 628110761 Active 2024 Mateusz Soriano DC [address] [place] [address], [facility] [place], [address], [facility] 16:22:18 Low back pain 780032096 Active 2024 Mateusz Soraino DC [address] [facility], [facility] [place], [address], [facility] 16:22:18 Lumbar segmental dysfunction 621340527 Active 2024 Mateusz Soriano DC [address] [place] [address], [facility] [place], [address], [facility] 16:22:18 Somatic dysfunction of sacral spine 805690453 Active 2024 Mateusz Soriano POLINA [address] [facility], [place], [address], [facility] 16:22:18 Problem Notes None recorded. Procedures Surgical History Date Name Laterality Status Provider Name and Address Organization Details Recorded Time 57604: Spinal manipulation , 3 to 4 regions completed Mateusz Soriano, POLINA [address] [facility] [address], [place], [address], [facility] 07/12/2025 09:09:37 90461: Spinal manipulation , 3 to 4 regions completed Mateusz Soriano, POLINA [address], [place], [address], [facility] 06/25/2025 11:21:24 87489: Spinal manipulation , 3 to 4 regions completed Mateusz Soriano, POLINA [address] [address], [place], [address], [facility] 06/21/2025 12:51:10 85263: Spinal manipulation , 3 to 4 regions completed Mateusz Soriano, POLINA [address] [facility] [address], [place], [address], [facility] 05/31/2025 14:31:22 31869: Spinal manipulation , 3 to 4 regions completed Mateusz Soriano, POLINA [address] [facility] [address], [place], [address], [facility] 05/17/2025 16:22:17 58839: Spinal manipulation , 3 to 4 regions completed Mateusz Soriano, POLINA [address] [facility] [address], [place], [address], [facility] 05/10/2025 12:57:45 45303: Spinal manipulation , 3 to 4 regions completed Mateusz Souzam, DC [address] [facility] [address], [place], [address], [facility] 05/07/2025 14:04:36 Imaging Results None recorded. Procedure [...] ICD10 Code Diagnosis IMO Codes Diagnosis Note [id number] Mateusz Soriano DC [facility] [address] [address] 05/07/2025 09:53:59 05/07/2025 15:07:54 Lumbar segmental dysfunction 121233878 M99.03 Low back pain 065841609 M54.50 Somatic dy sfunction of sacral spine 241603686 M99.04 Thoracic s egmental dysfunction 526844647 M99.02 [id number] Mateusz Soriano DC [address] [address] 05/10/2025 12:15:14 05/10/2025 16:54:46 Lumbar segmental dysfunction 293697289 M99.03 Low back pain 551446411 M54.50 Somatic dy sfunction of sacral spine 270308026 M99.04 Thoracic s egmental dysfunction 774884163 M99.02 [id number] Mateusz Soriano DC [facility] [address] [address] 05/17/2025 11:34:04 05/17/2025 18:49:33 Lumbar segmental dysfunction 063719935 M99.03 Low back pain 577740928 M54.50 Somatic dy sfunction of sacral spine 024093925 M99.04 Thoracic s egmental dysfunction 448192550 M99.02 [id number] Mateusz Soriano DC [facility] [address] [facility] [place] [address] 05/31/2025 11:16:27 05/31/2025 18:05:15 Lumbar segmental dysfunction 741875661 M99.03 Low back pain 596613785 M54.50 Somatic dy sfunction of sacral spine 222817317 M99.04 Thoracic s egmental dysfunction 397473575 M99.02 [id number] Mateusz Soriano DC [facility] [address] [place] [address] 06/21/2025 10:51:07 06/21/2025 12:59:55 Lumbar segmental dysfunction 569462476 M99.03 Low back pain 517118933 M54.50 Somatic dy sfunction of sacral spine 807122983 M99.04 Thoracic s egmental dysfunction 670320348 M99.02 [id number] Mateusz Soriano DC [facility] [address] [facility] [place] [address] 06/25/2025 10:48:59 06/25/2025 11:27:51 Lumbar segmental dysfunction 813492561 M99.03 Low back pain 956223187 M54.50 Somatic dy sfunction of sacral spine 706549552 M99.04 Thoracic s egmental dysfunction 810776780 M99.02 [id number] Mateusz Soriano DC [facility] [address] [place] [address] 07/12/2025 08:55:41 07/12/2025 09:45:18 Lumbar segmental dysfunction 309244556 M99.03 Low back pain 328342099 M54.50 Somatic dy sfunction of sacral spine 820091759 M99.04 Thoracic s egmental dysfunction 342066633 M99.02 Health Concerns Section Related Observation LastModified by Organization Detai ls LastModified Time None Recorded Concern Status LastModified by Organization Details LastModified Time None Recorded Advance Directives Directive None Recorded Payers Insurance Date Sequence Insurance Name Policy Number Policy Ortiz Covered Member ID Ortiz Member ID Guarantor Name 05/12/2025 1 [place] [email or web address] Shaila Yoon Pulju [id number] Shaila Pulju 05/11/2025 3 [place]MEDICARE [place]PLACEMENT HMO) Shaila Pulju [id number] Shaila Pulju 05/17/2025 1 [place] [id number] Shaila Pulju [id number] Shaila Pulju 07/12/2025 [place] [id number] Shaila Pulju [id number] Shaila Pulju 05/12/2025 2 [place] [id number] Shaila M Pulju [id number] Shaila Pulju Notes Date Note Type Note Provider Name and Address Organization Details Recorded Time 05/17/2025 text/html HPI - Lumbar SpineReported by PatientHPIFor location, patient reportsbilateral(wi th radiation to knee). For quality, patient reportsaching. For severity, patient reportsmoderateands evere. For timing, patient reportscannot identify. For duration, patient reportsacute. For context, patient reportsbending,lift ing, andtwisting. For aggravating factors, patient reportslifting,twis ting, andbending/squattin g. For alleviating factors, patient reportsice. Mateusz Soriano DC [address] [place] [address], [place], [address], [facility] 05/17/2025 16:22:58 05/31/2025 text/html HPI - Lumbar SpineReported by PatientHPIFor location, patient reportsbilateral(wi th radiation to knee). For quality, patient reportsaching. For severity, patient reportsmoderateands evere. For timing, patient reportscannot identify. For duration, patient reportsacute. For context, patient reportsbending,lift ing, andtwisting. For aggravating factors, patient reportslifting,twis ting, andbending/squattin g. For alleviating factors, patient reportsice. Mateusz Soriano DC [address], [place], [address], [facility] 05/31/2025 14:32:00 06/21/2025 text/html HPI - Lumbar SpineReported by PatientHPIFor location, patient reportsbilateral(wi th radiation to knee). For quality, patient reportsaching. For severity, patient reportsmoderateands evere. For timing, patient reportscannot identify. For duration, patient reportsacute. For context, patient reportsbending,lift ing, andtwisting. For aggravating factors, patient reportslifting,twis ting, andbending/squattin g. For alleviating factors, patient reportsice. Mateusz Soriano DC [address], [place], [address], [facility] 06/21/2025 12:52:10 06/25/2025 text/html HPI - Lumbar SpineReported by PatientHPIFor location, patient reportsbilateral(wi th radiation to knee). For quality, patient reportsaching. For severity, patient reportsmoderateands evere. For timing, patient reportscannot identify. For duration, patient reportsacute. For context, patient reportsbending,lift ing, andtwisting. For aggravating factors, patient reportslifting,twis ting, andbending/squattin g. For alleviating factors, patient reportsice. Mateusz Soriano DC [address], [place], [address], [facility] 06/25/2025 11:22:42 07/12/2025 text/html HPI - Lumbar SpineReported by PatientHPIFor location, patient reportsbilateral(wi th radiation to knee). For quality, patient reportsaching. For severity, patient reportsmoderateands evere. For timing, patient reportscannot identify. For duration, patient reportsacute. For context, patient reportsbending,lift ing, andtwisting. For aggravating factors, patient reportslifting,twis ting, andbending/squattin g. For alleviating factors, patient reportsice. Mateusz Soriano DC [address], [place], [address], [facility] 07/12/2025 09:26:12 OBGyn Episode No OBEpisode recorded.
--- OUTSIDE RECORDS SUMMARY | 2025-07-18 07:42 | XMS_ITS | Encounter Summary ---
Author Organization [place] Address [address] [facility] [address] Care Team Providers Care Laundry Folder Name Role Phone Debi Oliva MD Primary Care Provider [phone] Encounter Details Date Type Department Care Team (Latest Contact Info) Description 06/11/2025 Travel Social History Tobacco Use Types Packs/Day Years [...] in an abandoned building, in an overnight senior living, or couch-surfing.) Yes 06/11/2025 Are you worried [...] on file documented as of this encounter Plan of Treatment Not on file documented as of this encounter Visit Diagnoses Not on filedocumented in this encounter Care Teams Laundry Folder Relationship Specialty Start Date End Date Debi Oliva MD [address] [place] [address] PCP - General Family Medicine 05/14/25 documented as of this encounter
--- OUTSIDE RECORDS SUMMARY | 2025-07-18 07:42 | XMS_ITS | CCD ---
Author Name Interface, [email or web address] lity Address [address] [place] [address] [facility] Address [address] [address] Reason for Visit Social History Date Name Value 04/10/2025 Sex Female
--- OUTSIDE RECORDS SUMMARY | 2025-07-18 07:42 | XMS_ITS | Continuity of Care Document ---
Author Organization [place] [facility] Address [address] [facility] [address] [place] [address] Assessment Encounter Date Assessment Date Assessment LastModified [...] our office. ecram Not available 05/17/2025 16:22:17 Plan of Treatment Reminders Order Date Submit [...] Organization Details Recorded Time Thoracic segmental dysfunction 505115268 Active 2024 Mateusz Soriano DC [address] [facility], [place], [address], [place] [facility] 16:22:18 Low back pain 369620697 Active 2024 Mateusz Soriano DC [address] [facility], [place], [address], [place] [facility] 16:22:18 Lumbar segmental dysfunction 622302133 Active 2024 Mateusz Soriano DC [address] [facility], [place], [address], [facility] 16:22:18 Somatic dysfunction of sacral spine 204282438 Active 2024 Mateusz Soriano DC [address] [facility], [place], [address], [facility] 16:22:18 Problem Notes None recorded. Procedures Surgical History Date Name Laterality Status Provider Name and Address Organization Details Recorded Time 5 40733: Spinal manipulation , 3 to 4 regions completed Mateusz Braxton HarleyarturPOLINA [address] [facility], [place], [address], [facility] 07/12/2025 09:09:37 5 76524: Spinal manipulation , 3 to 4 regions completed Mateusz Braxton HarleyarturPOLINA [address] [facility], [place], [address], [facility] 06/25/2025 11:21:24 5 17972: Spinal manipulation , 3 to 4 regions completed Mateusz Braxton HarleyarturPOLINA [address] [facility], [place], [address], [facility] 06/21/2025 12:51:10 5 61699: Spinal manipulation , 3 to 4 regions completed Mateusz Braxton Harleyartur, POLINA [address] [facility], [place], [address], [facility] 05/31/2025 14:31:22 5 50023: Spinal manipulation , 3 to 4 regions completed Mateusz Soriano DC [address] [facility], [place], [address], [facility] 05/17/2025 16:22:17 00670: Spinal manipulation , 3 to 4 regions completed Mateusz Soriano DC [address] [facility], [place], [address], [facility] 05/10/2025 12:57:45 39756: Spinal manipulation , 3 to 4 regions completed Mateusz Soriano DC [address] [facility], [place], [address], [facility] 05/07/2025 14:04:36 Imaging Results None recorded. Procedure [...] ICD10 Code Diagnosis IMO Codes Diagnosis Note [id number] POLINA Benson [facility] [address] [facility] [place] [address] 05/07/2025 09:53:59 05/07/2025 15:07:54 Lumbar segmental dysfunction 477462963 M99.03 Low back pain 700941121 M54.50 Somatic dy sfunction of sacral spine 625888612 M99.04 Thoracic s egmental dysfunction 352011257 M99.02 [id number] POLINA Benson [facility] [address] [facility] [place] [address] 05/10/2025 12:15:14 05/10/2025 16:54:46 Lumbar segmental dysfunction 643368491 M99.03 Low back pain 641420558 M54.50 Somatic dy sfunction of sacral spine 539216063 M99.04 Thoracic s egmental dysfunction 197734939 M99.02 [id number] POLINA Benson [facility] [address] [facility] [facility] [place] [address] 05/17/2025 11:34:04 05/17/2025 18:49:33 Lumbar segmental dysfunction 818003226 M99.03 Low back pain 633875926 M54.50 Somatic dy sfunction of sacral spine 337083174 M99.04 Thoracic s egmental dysfunction 265059575 M99.02 Health Concerns Section Related Observation LastModified by Organization Detai ls LastModified Time None Recorded Concern Status LastModified by Organization Details LastModified Time None Recorded Payers Encounter Date Sequence Insurance Name Policy Number Policy Ortiz Covered Member ID Ortiz Member ID Guarantor Name 05/17/2025 1 [place]) [id number] Shaila Rc [id number] Shaila Tatum Notes Date Note Type Note [...] factors, patient reportsice. Mateusz Soriano DC [address] [facility], [place], [address], [facility] 05/17/2025 16:22:58 OBGyn Episode No OBEpisode recorded.
--- OUTSIDE RECORDS SUMMARY | 2025-07-18 07:43 | XMS_ITS | Continuity of Care Document ---
Author Organization [place] [facility] Address [address] [facility] [address] [place] [address] Assessment Encounter Date Assessment Date Assessment LastModified by Organization Details LastModified Time 06/25/2025 06/25/2025 ASSESSMENT: Patient is a good [...] our office. ecram Not available 06/25/2025 11:21:24 Plan of Treatment Reminders Order Date Submit [...] Organization Details Recorded Time Thoracic segmental dysfunction 035975008 Active 2024 Mateusz Soriano DC [address] [facility], [place], [address], [place] [facility] 16:22:18 Low back pain 291580170 Active 2024 Mateusz Soriano DC [address] [facility], [place], [address], [place] [facility] 16:22:18 Lumbar segmental dysfunction 478269988 Active 2024 Mateusz Soriano DC [address] [facility], [place], [address], [facility] 16:22:18 Somatic dysfunction of sacral spine 717790270 Active 2024 Mateusz Soriano DC [address] [facility], [place], [address], [facility] - [facility] 16:22:18 Problem Notes None recorded. Procedures Surgical History Date Name Laterality Status Provider Name and Address Organization Details Recorded Time 5 67174: Spinal manipulation , 3 to 4 regions completed Mateusz Braxton HarleyarturPOLINA [address] [facility], [place], [address], [facility] - [facility] 07/12/2025 09:09:37 5 35402: Spinal manipulation , 3 to 4 regions completed Mateusz Braxton HarleyarturPOLINA [address] [facility], [place], [address], [facility] 06/25/2025 11:21:24 5 75554: Spinal manipulation , 3 to 4 regions completed Mateusz Braxton HarleyarturPOLINA [address] [facility], [place], [address], [facility] - [facility] 06/21/2025 12:51:10 5 82823: Spinal manipulation , 3 to 4 regions completed Mateusz Braxton Harleyartur, POLINA [address] [facility], [place], [address], [facility] - [facility] 05/31/2025 14:31:22 5 39116: Spinal manipulation , 3 to 4 regions completed Mateusz Soriano DC [address] [facility], [place], [address], [facility] 05/17/2025 16:22:17 5 02820: Spinal manipulation , 3 to 4 regions completed Mateusz Fox Soriano DC [address] [facility], [place], [address], [facility] 05/10/2025 12:57:45 5 97776: Spinal manipulation , 3 to 4 regions completed Mateusz Soriano DC [address] [facility], [place], [address], [facility] 05/07/2025 14:04:36 Imaging Results None recorded. Procedure [...] ICD10 Code Diagnosis IMO Codes Diagnosis Note [id number] POLINA Benson [facility] [address] [facility] [place] [place] [address] 05/31/2025 11:16:27 05/31/2025 18:05:15 Lumbar segmental dysfunction 563262004 M99.03 Low back pain 840998483 M54.50 Somatic dy sfunction of sacral spine 927081722 M99.04 Thoracic s egmental dysfunction 070543090 M99.02 [id number] POLINA Benson [facility] [address] [facility] [place] [place] [address] 06/21/2025 10:51:07 06/21/2025 12:59:55 Lumbar segmental dysfunction 284544821 M99.03 Low back pain 507686513 M54.50 Somatic dy sfunction of sacral spine 007896568 M99.04 Thoracic s egmental dysfunction 001231261 M99.02 [id number] POLINA Benson [facility] [address] [facility] [facility] [place] [place] [address] 06/25/2025 10:48:59 06/25/2025 11:27:51 Lumbar segmental dysfunction 419243413 M99.03 Low back pain 568650694 M54.50 Somatic dy sfunction of sacral spine 533537158 M99.04 Thoracic s egmental dysfunction 684329373 M99.02 Health Concerns Section Related Observation LastModified by Organization Detai ls LastModified Time None Recorded Concern Status LastModified by Organization Details LastModified Time None Recorded Payers Encounter Date Sequence Insurance Name Policy Number Policy Ortiz Covered Member ID Ortiz Member ID Guarantor Name 06/25/2025 1 [place]) [id number] Shaila Pulju [id number] Shaila Tatum Notes Date Note Type Note Provider Name and Address Organization Details Recorded Time 06/25/2025 text/html HPI - Lumbar SpineReported by PatientHPIFor location, patient reportsbilateral(wi th radiation to knee). For quality, patient reportsaching. For severity, patient reportsmoderateands evere. For timing, patient reportscannot identify. For duration, patient reportsacute. For context, patient reportsbending,lift ing, andtwisting. For aggravating factors, patient reportslifting,twis ting, andbending/squattin g. For alleviating factors, patient reportsice. Mateusz Soriano DC [address] [facility], [place], [address], [facility] 06/25/2025 11:22:42 OBGyn Episode No OBEpisode recorded.
--- OUTSIDE RECORDS SUMMARY | 2025-07-18 07:43 | XMS_ITS | Continuity of Care Document ---
Author Organization [place] - [facility] Address [address] [place] [address] Assessment Encounter Date Assessment Date Assessment LastModified by Organization Details LastModified Time 07/12/2025 07/12/2025 ASSESSMENT: Patient is a good [...] Organization Details Recorded Time Thoracic segmental dysfunction [id number] Active 2024 Mateusz Soriano DC [address], [place], [address], [place] [facility] 16:22:18 Low back pain 334058427 Active 2024 Mateusz Soriano DC [address], [place], [address], [place] [facility] 16:22:18 Lumbar segmental dysfunction 742544205 Active 2024 Mateusz Soriano DC [address], [place], [address], [facility] [place] [facility] 16:22:18 Somatic dysfunction of sacral spine 724557059 Active 2024 Mateusz Soriano DC [address], [place], [address], [facility] 16:22:18 Problem Notes None recorded. Procedures Surgical History Date Name Laterality Status Provider Name and Address Organization Details Recorded Time 5 50073: Spinal manipulation , 3 to 4 regions completed Mateusz Braxton HarleyarturPOLINA [address], [place], [address], [facility] 07/12/2025 09:09:37 5 47406: Spinal manipulation , 3 to 4 regions completed Mateusz Braxton HarleyarturPOLINA [address], [place], [address], [facility] 06/25/2025 11:21:24 5 91638: Spinal manipulation , 3 to 4 regions completed Mateusz Braxton HarleyarturPOLINA [address], [place], [address], [facility] 06/21/2025 12:51:10 5 15390: Spinal manipulation , 3 to 4 regions completed Mateusz Braxton Harleyartur, POLINA [address], [place], [address], [facility] 05/31/2025 14:31:22 5 27050: Spinal manipulation , 3 to 4 regions completed Mateusz Soriano DC [address], [place], [address], [facility] 05/17/2025 16:22:17 5 79967: Spinal manipulation , 3 to 4 regions completed Mateusz Soriano DC [address], [place], [address], [facility] 05/10/2025 12:57:45 5 07778: Spinal manipulation , 3 to 4 regions completed Mateusz Soriano DC [address], [place], [address], [facility] 05/07/2025 14:04:36 Imaging Results None recorded. Procedure [...] ICD10 Code Diagnosis IMO Codes Diagnosis Note [id number] POLINA Benson [facility] [address] [facility] [place] [address] 06/21/2025 10:51:07 06/21/2025 12:59:55 Lumbar segmental dysfunction [id number] M99.03 Low back pain 200891169 M54.50 Somatic dy sfunction of sacral spine 231697455 M99.04 Thoracic s egmental dysfunction 504863585 M99.02 [id number] POLINA Benson [facility] [address] [facility] [address] 06/25/2025 10:48:59 06/25/2025 11:27:51 Lumbar segmental dysfunction 771898956 M99.03 Low back pain 593593871 M54.50 Somatic dy sfunction of sacral spine 774573229 M99.04 Thoracic s egmental dysfunction 869026673 M99.02 [id number] POLINA Benson [facility] [address] [facility] [place] [address] 07/12/2025 08:55:41 07/12/2025 09:45:18 Lumbar segmental dysfunction 729241837 M99.03 Low back pain 224504311 M54.50 Somatic dy sfunction of sacral spine 444593595 M99.04 Thoracic s egmental dysfunction 148939762 M99.02 Health Concerns Section Related Observation LastModified by Organization Detai ls LastModified Time None Recorded Concern Status LastModified by Organization Details LastModified Time None Recorded Payers Encounter Date Sequence Insurance Name Policy Number Policy Ortiz Covered Member ID Ortiz Member ID Guarantor Name 07/12/2025 1 [place]) [id number] Shaila Pulju [id number] Shaila Tatum Notes Date Note Type Note Provider Name and Address Organization Details Recorded Time 07/12/2025 text/html HPI - Lumbar SpineReported by PatientHPIFor location, patient reportsbilateral(wi th radiation to knee). For quality, patient reportsaching. For severity, patient reportsmoderateands evere. For timing, patient reportscannot identify. For duration, patient reportsacute. For context, patient reportsbending,lift ing, andtwisting. For aggravating factors, patient reportslifting,twis ting, andbending/squattin g. For alleviating factors, patient reportsice. Mateusz Soriano DC [address], [place], [address], [facility] 07/12/2025 09:26:12 OBGyn Episode No OBEpisode recorded.
--- OUTSIDE RECORDS SUMMARY | 2025-07-18 07:43 | XMS_ITS | Clinical Summary ---
Author Organization [employer] [facility] Address [address] [place] [address] Care Team Providers Care Phosphatic Fertilizer Supervisor Name Role Phone Debi Oliva DO Primary Care Provider Eleazar Westfall Unavailable Allergies No known active allergies Medications medical supply, miscellaneous (GRADUATED COMPRESSION STOCKINGS)Indicat ions:Pedal edema For personal use. Length: calf Strength: 16-20 mmHg 1 Packet 3 12/18/19 20 Active simvastatin (ZOCOR) 40 mg tabletIndications :Hyperlipidemia, unspecified hyperlipidemia type Take 1 Tablet (40 mg) by mouth once daily. 90 Tablet 4 08/17/19 25 Active amLODIPine (NORVASC) 5 mg tabletIndications :Hypertension goal BP (blood pressure) < 140/80 Take 1 Tablet (5 mg) by mouth once daily. 90 Tablet 3 09/28/19 25 Active levothyroxine (SYNTHROID) 25 mcg tabletIndications :Hypothyroidism, unspecified type Take 1 Tablet (25 mcg) by mouth once daily. 90 Tablet 3 06/10/20 25 Active betamethasone valerate 0.1 % creamIndications: Lichen sclerosus et atrophicus APPLY TOPICALLY TO THE AFFECTED AREA TWICE DAILY 45 g 2 07/07/20 25 Active betamethasone valerate 0.1 % creamIndications: Lichen sclerosus et atrophicus APPLY TOPICALLY TO THE AFFECTED AREA TWICE DAILY 45 g 2 04/21/20 24 025 Discontinued Active Problems Problem Noted Date Diagnosed Date Hypertension goal BP (blood pressure) < 140/80 0 08/17/2024 [facility] arthritis, thumb, degenerative 09/26/2022 Overview (06/19/2023): 09/11/2022: Bilateral thumb [facility] joint injections. 80% pain relief at 2 weeks. 05/17/2023: repeat bilateral thumb [facility] Joint injections with ultrasound guidance. Had skin reaction : hives. 50% improvement in pain , but Patient not wanting to do any more cortisone injections d/t reaction with injection. White coat syndrome without diagnosis of hyperte nsion 03/28/2022 Seasonal allergic rhinitis due to pollen 019 Lymphocytic colitis 07/08/2018 Overview (07/08/2018): Colonoscopy 06/2018 lymphocytic colitis, no follow up colonoscopy Onychomycosis 01/21/2017 Overactive bladder 05/19/2013 ACP (advance care planning) 05/23/2012 Overview (05/23/2012): Patient has identified Health Care Agent(s): Yes Add Health Care Agents: Yes Health Care Agent(s): Primary Health Care Agent: Moni Newman Relationship: sean [phone] cell Secondary Health Care Agent: Jill Benjamin Relationship: [facility] cell [phone] work Patient has Advance Care Plan Documents (Health Care Directive, POLST): Yes Advance Care Plan Documents: Health Care Directive Patient has identified Specific Treatment Preferences: Yes Specific Treatment Preferences: a.) Code Status: CPR/Attempt Resuscitation b.) Goals of Treatment: Comfort Care. If I reach a point where I am no longer able to make decisions for myself and it is reasonably certain I will not recover my ability to know who I am, then I want comfort care only. Do not intubate but use medication, oxygen, oral suction, and manual clearing of airways, etc. as needed for immediate comfort. Other specified acquired hypothyroidism 04/14/20 08 Other and unspecified hyperlipidemia 03/10/2007 Resolved Problems Problem Noted Date Diagnosed Date Resolved Date Pulmonary embolism, bilateral 09/29/2020 09/28/2022 halfway (current) use of anticoagulants 04/18/2010 09/27/2010 Overview (04/20/2010): INR Goal Range: 2.0 - 3.0 HCM 04/25/2007 12/02/2013 Overview (04/25/2007): colonoscopy 12/14 repeat in 10 yrs dexascan 09/13 pap smear 2001 hyst 1969 Encounters Date Type Department Care Team Description 07/06/2025 Refill [facility] [address] [place] [address] Debi Oliva DO Refill Request (Betamethasone Valerate) 06/10/2025 Refill [facility] [address] [place] [address] Debi Oliva DO Refill Request (Levothyroxine) 05/12/2025 8:35 AM CDT Office Visit [facility] [address] [place] [address] Debi Oliva DO Preoperative Exam (rectocele 06/11/25 [facility] 05/11/2025 Travel from Last 3 Months Immunizations Immunization Administration Dates Next Due COVID-19 VACCINE COMIRNATY (PFIZER-BIONTECH 30MCG/0.3ML) 12YO+ PFS 05/03/2023 COVID-19 VACCINE SPIKEVAX (M ODERNA 50MCG/0.5ML) 12YO+ PFS 11/13/2024 COVID-19 vaccine ([employer]-Bio NTech 30mcg/0.3mL) PF, MDV 10/25/2020,10/04/2020 Influenza, High-dose Inactivated 024,06/19/2019,05/22/2018,05/04 Influenza, High-dose Quadriv alent Inactivated 05/03/2023,04/27/2022,05/17/2021,06/29,06/19/2019,05/22/2018,05/04/2017 ,05/03/2016,05/27/2014,05/14/2013,04/13,04/25/2011 Influenza, IIV3 (Age >=3 years) 05/14/20 13,05/08/2012,04/25/2011,05/12 Influenza, IIV4 (=>6mos) MDV 05/27/2014 Influenza, Inactivated AIIV4 (Age 65+ Years) Preserv Free 05/03/2023 Influenza, Inactivated IIV3 (Age 65+ Years) Preserv Free 05/22/2018,05/04/2017 Pneumococcal Poly,23-Valent (Pneumovax) 04/24/2007 Pneumococcal conj 13-Valent (Prevnar 13) 01/17/2015 RSV, Bivalent Vaccine Recons tituted (Abrysvo 120MCG/0.5mL) 08/17/2024 Td (Age >=7 Years) 03/27/2021 Td, Preservative Free (age >= 7 Years) Tdap 04/07/2010 Zoster (Shingrix-RZV, recombinant) 10/31/2022 Zoster (Zostavax-ZVL, live) 04/26/2015 Family History Medical History Relation Name Comments Deep vein thrombosis Brother 1 factor v leiden Pulmonary embolism Brother 2 Other Father 74, stroke Other Mother 57 ca, jerica kemia Deep vein thrombosis Sister 1 negativ e for factor v leiden Anesthesia Problem No Family History Blood Disease No Family History Relation Name Status Comments Brother 1 Alive Brother 2 Alive Brother 3 Alive Brother 4 Alive Brother 5 Alive Father Mother Sister 1 Alive Sister 2 Alive Sister 3 Alive Social History Tobacco Use Types Packs/Day Years Used Date Smoking Tobacco: Former Cigarettes 0 Q uit: 08/12/1995 Smokeless Tobacco: Never Tobacco Cessation:Counseling Given: Yes Alcohol Use Standard Drinks/Week Comments Yes 0 (1 standard drink = 0.6 oz pur e alcohol) 10-12 times yearly PHQ-2 Answer Date Recorded PHQ-2 TOTAL SCORE 0 08/17/2024 Social Connections Answer Date Recorded Do you often feel lonely or isolated from those around you? 0 03/29/2025 Financial Resource Strain Answer Date R ecorded Difficulty of Paying Living Expenses 3 03/29/2025 Difficulty of Paying Living Expenses Not on file 03/29/2025 Food Insecurity Answer Date Recorded Do you worry your food will run out before you are able to buy more? 1 03/29/2025 Transportation Needs Answer Date Record ed Does lack of transportation keep you from medica l appointments? 1 03/29/2025 Does lack of transportation keep you from work, meetings or getting things that you need? 1 03/29/2025 Housing Stability Answer Date Recorded What is your housing situation today? 1 03/29/2025 Utilities Answer Date Recorded Do you have trouble paying f or utilities (for example, heat, electricity, water, phone)? 1 03/29/2025 Comments No Sex and Gender Information Value Date Recorded Sex Assigned at Not on file Legal Sex Female 5:20 AM PIPELINE EXECUTIVE Gender Identity Not on file Sexual Orientation Not on file Occupation Industry Job Start Date Job End Date retired Not on file Not on file Not on file Obstetrics History Para Term AB IAB SAB Ectopic Multiple Livin g Live Births 2 2 2 0 0 0 0 0 0 2 2 Date Outcome GA Total Labor Labor/2nd/3rd Weight Sex Type Anes PTL Shahnaz A1 A5 Name Clin Term Vag Living Term Vag Living Last Filed Vital Signs Vital Sign Reading Time Taken Comments Blood Pressure 120/69 05/12/2025 8:28 AM CDT Pulse 67 05/12/2025 8:28 AM CDT Temperature 36.5 C (97.7 F) 05/12/2025 8:28 AM CDT Respiratory Rate 18 05/01/2010 2:17 PM CDT Oxygen Saturation 99% 05/12/2025 8:28 AM CDT Inhaled Oxygen Concentration - - Weight 78.4 kg (172 lb 12.8 oz) 05/12/2025 8:28 AM CDT Height 158 cm (5' 2.21) 08/17/2024 9:55 AM PIPELINE EXECUTIVE Body Mass Index 31.4 08/17/2024 9:55 AM PIPELINE EXECUTIVE Plan of Treatment Upcoming Encounters Date Type Department Care Team (Late st Contact Info) Description 08/25/2025 1:00 PM PIPELINE EXECUTIVE Office Visit [facility] [address] [place] [address] Debi Oliva DO [address] [place] [address] Health Maintenance Due Date Last Done Comments Zoster (shingles) series for age 50+ (3 of 3) 12/26/2022 10/31/2022, 04/26/2015 Influenza Vaccine (#1) 2025 , 05/03/2023, 06/19/2019, Additional history exists BMI (ht and wt on same day) for age 18+ 08/17/2025 08/17/2024, 06/05/2024, 04/24/2023, Additional history exists Depression screening for age 12+ 08/17/2025 08/17/2024, 05/03/2023, 04/24/2023, Additional history exists Medicare Wellness for age 65+ 08/18/2025 08/17/2024, 04/24/2023, 03/28/2022, Additional history exists COVID-19 vaccine series (2024- season) 2025 05/17/2025, 11/13/2024, 06/19/2024, Additional history exists Tetanus booster 03/27/2031 03/27/2021, 03/12, 04/07/2010 Pneumococcal series for age 50+ Completed 01/17/2015, 04/24/2007 DEXA/DXA scan for age 65+ Completed 03/24/2018, RSV vaccine for adults or Completed 08/17/2024 Hepatitis B series for 19+ Aged Out N o longer eligible based on patient's age to complete this topic Procedures Procedure Name Priority Date/Time Associated Diagnosis Comments EKG 12 LEAD Routine 05/13/2025 2:27 PM CDT Preop examination TN READING EKG - NO CHARGE, COMP ONLY Routine 05/13/2025 2:26 PM CDT Preop examination HEMOGLOBIN Routine 05/12/2025 9:18 AM CDT Preop examination TSH Routine 05/12/2025 9:18 AM CDT Other specified acquired hypothyroidism LIPID PANEL W REFLEX MEASURED LDL Routine 05/12/2025 9:18 AM CDT Hypertension goal BP (blood pressure) < 140/80 BASIC METABOLIC PANEL Routine 05/12/2025 9:18 AM CDT Hypertension goal BP (blood pressure) < 140/80 XR DXA BONE DENSITY 2 SITES AXIAL Routine 03/24/2018 10:09 AM CDT Post-menopausal from Last 3 Months or Most Recently Relevant to Health Maintenance Results * EKG 12 LEAD (05/13/2025 2:27 PM CDT) Debi Ella Detert DO EKG ORD Final Resul t * TN READING EKG - NO CHARGE, COMP ONLY (05/13/2025 2:26 PM CDT) us Debi Ella Detert DO PB - PROVIDER READINGS Jenifer l Result * (ABNORMAL) LIPID PANEL W REFLEX MEASURED LDL (05/12/2025 9:18 AM CDT) CHOLESTEROL, TOTAL 193 <200 mg/dL 05/13/2025 4:07 AM CDT [facility] TRIGLYCERIDES 99 <150 mg/dL 05/13/2025 4:07 AM CDT [facility] HDL CHOLESTEROL 65 > OR = 50 mg/dL 05/13/2025 4:07 AM CDT [facility] NON HDL CHOLESTEROL 128 <130 mg/dL (calc) 05/13/2025 4:07 AM CDT [facility] Comment: For patients with diabetes plus 1 major ASCVD risk factor, treating to a non-HDL-C goal of <100 mg/dL (LDL-C of <70 mg/dL) is considered a therapeutic option. CHOL/HDLC RATIO 3.0 <5.0 (calc) 05/13/2025 4:07 AM CDT [facility] LDL-CHOLESTEROL 109(H) mg/dL (calc) 05/13/2025 4:07 AM [facility] Comment: Reference range: <100 Desirable range <100 mg/dL for primary prevention; <70 mg/dL for patients with CHD or diabetic patients with > or = 2 CHD risk factors. LDL-C is now calculated using the Ricarda calculation, which is a validated novel method providing better accuracy than the Friedewald equation in the estimation of LDL-C. Dhruv JOLLEY et al. EDMAR. 2013;310(19): 5900-4726 (http://education.V-me Media.Enviable Abode/faq/ONF383) Blood BLOOD SPECIMEN / Unknown [facility] / Unknown 05/12/2025 9:18 AM CDT 05/12/2025 9:18 AM CDT Debi Oliva DO CHEMISTRY Final Resul t Performing Organization Address [facility] Co de Phone Number [facility] [address] [address], * TSH (05/12/2025 9:18 AM CDT) TSH 1.71 0.40 - 4.50 mIU/L 05/13/2025 3:46 AM CDT [facility] Blood BLOOD SPECIMEN / Unknown [facility] / Unknown 05/12/2025 9:18 AM CDT 05/12/2025 9:18 AM CDT Debi Oliva DO CHEMISTRY Final Resul t Performing Organization Address [facility] Co de Phone Number [facility] [address] [address], * HEMOGLOBIN (05/12/2025 9:18 AM CDT) HEMOGLOBIN 12.6 11.7 - 15.5 g/dL 05/13/2025 3:46 AM CDT [facility] MCV 95.0 80.0 - 100.0 fL 05/13/2025 3:46 AM CDT [facility] Blood BLOOD SPECIMEN / Unknown [facility] / Unknown 05/12/2025 9:18 AM CDT 05/12/2025 9:18 AM CDT Debi Oliva DO HEMATOLOGY Final Resul t Performing Organization Address City/[facility]/ZIP Co de Phone Number [facility] [address] [address], * BASIC METABOLIC PANEL (05/12/2025 9:18 AM CDT) SODIUM 139 135 - 146 mmol/L 05/13/2025 4:07 AM CDT [facility] POTASSIUM 4.9 3.5 - 5.3 mmol/L 05/13/2025 4:07 AM CDT [facility] CARBON DIOXIDE 30 20 - 32 mmol/L 05/13/2025 4:07 AM CDT [facility] GLUCOSE 99 65 - 99 mg/dL 05/13/2025 4:07 AM CDT [facility] Comment: Fasting reference interval CALCIUM 9.5 8.6 - 10.4 mg/dL 05/13/2025 4:07 AM CDT [facility] CREATININE 0.88 0.60 - 0.95 mg/dL 05/13/2025 4:07 AM CDT [facility] BUN/CREATININE RATIO SEE NOTE: 6 - 22 (calc) 05/13/2025 4:07 AM CDT [facility] Comment: Not Reported: BUN and Creatinine are within reference range. EGFR 64 > OR = 60 mL/min/1. 73m2 05/13/2025 4:07 AM CDT [facility] UREA NITROGEN (BUN) 13 7 - 25 mg/dL 05/13/2025 4:07 AM CDT [facility] ELECTROLYTE BALANCE 7 7 - 17 mmol/L (calc) 05/13/2025 4:07 AM CDT [facility] CHLORIDE 102 98 - 110 mmol/L 05/13/2025 4:07 AM CDT [facility] Blood BLOOD SPECIMEN / Unknown [facility] / Unknown 05/12/2025 9:18 AM CDT 05/12/2025 9:18 AM CDT us Debi Jaramillo Detert DO CHEMISTRY Final Resul t [facility] [place] [address] [place] [address], * (ABNORMAL) XR DXA BONE DENSITY 2 SITES AXIAL (03/24/2018 10:09 AM CDT) Anatomical Region Laterality Modality Spine, HIPS, HIPL, HIPR Other Narrative 03/25/2018 5:40 PM CDT Please see scanned document for results of this study. 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
--- OUTSIDE RECORDS SUMMARY | 2025-07-18 07:44 | XMS_ITS | Continuity of Care Document ---
Author Organization [place] [facility] Address [address] [facility] [address] [place] [address] Assessment Encounter Date Assessment Date Assessment LastModified by Organization Details LastModified Time 06/21/2025 06/21/2025 ASSESSMENT: Patient is a good [...] our office. 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 Active 2024 Mateusz Soriano DC [address], [place], [address], [place] [facility] 16:22:18 Low back pain 274621426 Active 2024 Mateusz Soriano DC [address] [facility], [place], [address], [place] [facility] 16:22:18 Lumbar segmental dysfunction 542533074 Active 2024 Mateusz Soriano DC [address] [facility], [place], [address], [facility] 16:22:18 Somatic dysfunction of sacral spine 698517275 Active 2024 Mateusz Soriano DC [address] [facility], [place], [address], [facility] 16:22:18 Problem Notes None recorded. Procedures Surgical History Date Name Laterality Status Provider Name and Address Organization Details Recorded Time 5 85081: Spinal manipulation , 3 to 4 regions completed Mateusz Braxton HarleyarturPOLINA [address], [place], [address], [facility] 07/12/2025 09:09:37 5 94358: Spinal manipulation , 3 to 4 regions completed Mateusz Braxton HarleyarturPOLINA [address], [place], [address], [facility] 06/25/2025 11:21:24 5 30707: Spinal manipulation , 3 to 4 regions completed Mateusz Braxton HarleyarturPOLINA [address], [place], [address], [facility] 06/21/2025 12:51:10 5 18843: Spinal manipulation , 3 to 4 regions completed Mateusz Braxton Harleyartur, POLINA [address], [place], [address], [facility] 05/31/2025 14:31:22 5 42223: Spinal manipulation , 3 to 4 regions completed Mateusz Soriano DC [address], [place], [address], [facility] 05/17/2025 16:22:17 5 95638: Spinal manipulation , 3 to 4 regions completed Mateusz Fox Soriano DC [address], [place], [address], [facility] 05/10/2025 12:57:45 5 78130: Spinal manipulation , 3 to 4 regions completed Mateusz Soriano DC [address], [place], [address], [facility] 05/07/2025 14:04:36 Imaging Results None recorded. Procedure [...] ICD10 Code Diagnosis IMO Codes Diagnosis Note [id number] POLINA [facility] [address] [facility] [address] 05/31/2025 11:16:27 05/31/2025 18:05:15 Lumbar segmental dysfunction 329837118 M99.03 Low back pain 143292840 M54.50 Somatic dy sfunction of sacral spine 058575408 M99.04 Thoracic s egmental dysfunction 442103082 M99.02 [id number] POLINA Benson [facility] [address] [facility] [place] [address] 06/21/2025 10:51:07 06/21/2025 12:59:55 Lumbar segmental dysfunction 431122815 M99.03 Low back pain 690899184 M54.50 Somatic dy sfunction of sacral spine 938629920 M99.04 Thoracic s egmental dysfunction 354769583 M99.02 Health Concerns Section Related Observation LastModified by Organization Detai ls LastModified Time None Recorded Concern Status LastModified by Organization Details LastModified Time None Recorded Payers Encounter Date Sequence Insurance Name Policy Number Policy Ortiz Covered Member ID Ortiz Member ID Guarantor Name 06/21/2025 1 [place] (MEDICARE [place]ACEMENT PPO) [id number] Shaila Tatum [id number] Shaila Tatum Notes Date Note Type Note Provider Name and Address Organization Details Recorded Time 06/21/2025 text/html HPI - Lumbar SpineReported by PatientHPIFor location, patient reportsbilateral(wi th radiation to knee). For quality, patient reportsaching. For severity, patient reportsmoderateands evere. For timing, patient reportscannot identify. For duration, patient reportsacute. For context, patient reportsbending,lift ing, andtwisting. For aggravating factors, patient reportslifting,twis ting, andbending/squattin g. For alleviating factors, patient reportsice. Mateusz Soriano DC [address] [place] [address], [place], [address], [facility] 06/21/2025 12:52:10 OBGyn Episode No OBEpisode recorded.
--- OUTSIDE RECORDS SUMMARY | 2025-07-18 07:44 | XMS_ITS | Clinical Summary ---
Author Organization [place] Address [address] [facility] [place] [address] Care Team Providers Care Rn Integrity Name Role Phone Debi Oliva MD Primary Care Provider [phone] Allergies No known active allergies Medications amLODIPine (NORVASC) 5 MG tablet Take 5 mg by mouth daily. 5 Active betamethasone valerate (VALISONE) 0.1 % external cream Apply topically 2 times daily. 4 Active levothyroxine (SYNTHROID/LEVO THROID) 25 MCG tablet Take 25 mcg by mouth daily. 5 Active simvastatin (ZOCOR) 40 MG tablet Take 40 mg by mouth daily. 5 Active meclizine 25 MG CHEW Take 25 mg by mouth every 6 hours as needed for dizziness. Active ibuprofen (ADVIL/MOTRIN) 600 MG tabletIndicatio ns:Post-operati ve state Take 1 tablet (600 mg) by mouth every 6 hours as needed for moderate pain. 30 tablet 5 Active polyethylene glycol (MIRALAX) 17 GM/Dose powderIndicatio ns:Post-operati ve state Take 17 g by mouth daily. 510 g 5 Active ciprofloxacin (CIPRO) 250 MG tabletIndicatio ns:Post-operati ve state Take 1 tablet (250 mg) by mouth 2 times daily for 7 days. 14 tablet 5 06/19/20 25 Active Problems Problem Noted Date Diagnosed Date Post-operative state 06/11/2025 Encounters Date Type Department Care Team Description 06/11/2025 7:30 AM CDT - 06/11/2025 10:00 AM CDT Surgery [facility] [address] [place] [address] Marsha Lozano MD complete colpectomy; 06/11/2025 7:28 AM CDT Anesthesia Event [facility] [address] [place] [address] Clarence Braxton MD 06/11/2025 5:32 AM CDT - 06/12/2025 6:24 PM CDT Hospital Encounter [facility] [address] [place] [address] Marsha Lozano MD Post-operative state (Primary Dx) Discharge Disposition: Home or Self Care 06/11/2025 Travel from Last 3 Months Social History Tobacco Use Types Packs/Day Years [...] on file Sexual Orientation Not on file Last Filed Vital Signs Vital Sign Reading [...] Mass Index 31.84 06/11/2025 5:37 AM CDT Plan of Treatment Health Maintenance Due Date Last Done Comments ADVANCE CARE PLANNING 1940 ANNUAL REVIEW OF HM ORDERS 1940 LIPID 1939 TSH W/FREE T4 REFLEX 1939 FALL RISK ASSESSMENT 02/15/2004 MEDICARE ANNUAL WELLNESS VISIT 10/25/2012 10/26/2011, 04/24/2007 ZOSTER VACCINE (3 of 3) 12/26/2022 10/31/2022, 04/26 PHQ-2 (once per calendar year) 2024 COVID-19 VACCINE ( season) 2025 11/13/2024, 05/03/2023, 10/25/2020, Additional history exists INFLUENZA VACCINE (#1) 2025 4, 05/03/2023, 05/03/2023, Additional history exists DTAP/TDAP/TD VACCINE (3 - Td or Tdap) 03/27/2031 03/27/2021, 04/07/2010 DEXA 03/24/2033 03/24/2018 PNEUMOCOCCAL VACCINE 50+ YEARS Completed 01/17/2015, 04/24/2007 RSV VACCINE Completed 08/17/2024 HPV VACCINE (No Doses Required) Completed MENINGITIS VACCINE Aged Out No longer eligible based on patient's age to complete this topic Medical Devices Implanted Type Area Skirt Trimmer Device Identifier Shelf Expiration Date Model / Serial / Lot Advantage Fit Ultra System Transvaginal Mid-Urethral Sling Implanted:Qty: 1 on 06/11/2025 by Marsha Lozano MD at [facility] Mesh N/A: Vagina [employer] [id number] 02/22/2028 [id number] / / [id number] Procedures Procedure Name Priority Date/Time Associated Diagnosis Comments GLUCOSE BY METER Routine 06/12/2025 7:44 AM CDT BASIC METABOLIC PANEL (LIMITED OCCURRENCES) Routine 06/12/2025 6:50 AM CDT HEMOGLOBIN Routine 06/12/2025 6:50 AM CDT ANE AIRWAY ETT PERFORMABLE Routine 06/11/2025 7:45 AM CDT CREATION, VAGINAL SLING, WITH CYSTOSCOPY [...] daughter sign consent to communicate dos.150min EXTRA GREEN TOP (LITHIUM HEPARIN) TUBE Routine 06/11/2025 6:31 AM CDT EXTRA TUBE Routine 06/11/2025 6:31 AM CDT HEMOGLOBIN STAT 06/11/2025 6:31 AM CDT GLUCOSE BY METER Routine 06/11/2025 5:42 AM CDT from Last 3 Months Results * (ABNORMAL) Glucose by meter (06/12/2025 7:44 AM CDT) Only the most recent of2 resultswithin the time period is included. [facility] GLUCOSE BY METER POCT 127(H) 70 - 99 mg/dL 06/12/2025 7:51 AM CDT LABORATORY POC Blood, Capillary BLOOD SPECIMEN / Unknown 06/12/2025 7:44 AM CDT 06/12/2025 7:51 AM CDT us Marsha Lozano MD LAB - BEAKER POCT Final Result LABORATORY [facility] Acute Care Lab [address] [facility] Lab (1st floor, no room number) [place] [address] * (ABNORMAL) Basic Metabolic Panel (Limited Occurrences) (06/12/2025 6:50 AM CDT) [facility] Sodium 133(L) 135 - 145 mmol/L 06/12/2025 [...] - 23.0 mg/dL 06/12/2025 7:19 AM CDT [facility] LABORATORY Creatinine 0.92 0.51 - 0.95 mg/dL [...] 6:50 AM CDT 06/12/2025 6:54 AM CDT Marsha Lozano MD LAB - BLOOD ORDERABLES F inal Result Performing Organization Address City/[facility]/ZIP Co de Phone Number [facility] Care Lab [address] Lab (1st floor, no room number) [place] [phone] * (ABNORMAL) Hemoglobin (06/12/2025 6:50 AM CDT) Only the most recent of2 resultswithin the time period is included. Hemoglobin 10.4(L) 11.7 - 15.7 g/dL 06/12/2025 6:56 AM CDT LABORATORY MCV 95.4 78.0 - 100.0 fL 06/12/2025 6:56 AM CDT [facility] LABORATORY Blood STRUCTURE OF LEFT UPPER LIMB / Unknown Venipuncture / Unknown 06/12/2025 6:50 AM CDT 06/12/2025 6:54 AM CDT Marsha Lozano MD LAB - BLOOD ORDERABLES F inal Result [facility] Acute Care Lab [address] Lab (1st floor, no room number) [place] [address] * ANE AIRWAY ETT PERFORMABLE (06/11/2025 7:45 AM CDT) Narrative Nicci Ibarra APRN BAIT MAKER - 06/11/2025 7:45 AM CDT Nicci Ibarra APRN BAIT MAKER 06/11/2025 8:03 AM Airway Patient location during procedure: OR Procedure Start/Stop Times: 06/11/2025 7:45 AM Staff - Anesthesiologist: Nicci Ibarra APRN CRNA Performed By: BAIT MAKER Consent for Airway Urgency: elective Indications and [...] 06/11/2025 7:45 AM us Clarence Braxton MD DC ANESTHESIA Final Result * Extra Green Top (Garrett Heparin) Tube (06/11/2025 6:31 AM CDT) Pathologist [facility] Hold Specimen [facility] 06/11/2025 7:46 AM CDT LABORATORY Blood STRUCTURE OF LEFT UPPER LIMB / Unknown Venipuncture / Unknown 06/11/2025 6:31 AM CDT 06/11/2025 6:36 AM CDT us Marsha Lozano MD LAB - BLOOD ORDERABLES F inal Result [facility] LABORATORY [facility] Acute Care Lab [address] Lab (1st floor, no room number) [place] [address], [facility] from Last 3 Months Insurance MEDICARE Member Subscriber Plan / Payer (Ef fective 2014-Present) Name:Shaila Tatum Member ID:[id number] Relation to Subscriber:Self Name:Shaila Tatum Subscriber ID:[id number] Payer ID:[id number] Group ID:Not on file Type:Medicare Address: ATTN CLAIMS [address] [place], [place] [address] [place] BL[facility] MEDICARE [facility] [place] [facility] Advance Directives For more information, please contact: [phone] * Full Code (Latest Code Status on File) Date Activated Date Inactivated Comments 06/11/2025 11:48 AM 06/12/2025 8:29 PM All basic and advanced life-sustaining interventions are performed as appropriate Question Answer Comments Code status determined by: Discussion with patie nt/ legal decision maker Care Teams Rn Integrity Relationship Specialty Start Date End Date Debi Oliva MD [address] [place] [address] PCP - General Family Medicine 05/14/25
[2025-07-18 07:49] VITALS: BP 166/69; PULSE 60; RESP 16; TEMP 36.8; O2SAT 99; BMI 31.5
[2025-07-18 08:09] LABS: Appearance Urine Slightly Cloudy (Clear)
--- NOTE | 2025-07-18 08:26 | CRLHL7_ITS ---
For Patients: As a result of the 21st Century Cures Act, medical imaging exams and procedure reports are released immediately into your electronic medical record. You may view this report before your referring provider. If you have questions, please contact your health care provider. INDICATION: Right flank pain and UTI. COMPARISON: 05/17/2019 TECHNIQUE: CT of the abdomen and pelvis with intravenous contrast. Multiplanar axial, coronal, and sagittal reformats were reconstructed. Contrast: 84 mL Isovue 370. FINDINGS: Lung bases: Extensive calcified granulomas. Liver: Single calcified granuloma. Otherwise normal. Gallbladder and bile ducts: Normal gallbladder. No bile duct dilation. Pancreas: Normal. Spleen: Calcified granulomas. Adrenal glands: There are 2 right adrenal nodules that measure 10 x 9 mm and 10 x 11 mm, no change since 2019 and very likely to be benign adenomas. Kidneys: Normal renal size and position. Homogeneous bilateral renal parenchymal enhancement. No cyst or solid mass. No calculi. Mild fullness of both collecting systems is similar to prior and appears physiologic. There is not any significant upper urinary tract urothelial thickening or abnormal enhancement. Urinary bladder: Bladder wall thickening and hyperemia. Pelvis: Left ovarian or adnexal cystic lesion measures 6.8 x 4.9 cm on series 2, image 99. Previously measured 5.8 x 4.2 cm in 2019. Vessels: Circumaortic left renal vein. Atherosclerosis. High-grade stenosis of the SMA about 1.5 cm beyond the origin due to heavy atherosclerosis. This has progressed since the prior exam. The distal branches fill well. No aortic aneurysm. Bowel: No dilated or inflamed bowel. Appendix not seen. Moderate to large stool burden. Lymph nodes: No adenopathy. Peritoneum: No ascites or free air. Abdominal wall: No hernia. Bones: No fractures. No focal worrisome bone lesions. IMPRESSION: 1. Urinary bladder cystitis, mild. No findings of upper tract infection or pyelonephritis. 2. Slowly growing cystic left ovarian or adnexal lesion now measures 6.8 x 4.9 cm, previously 5.8 x 4.2 cm (2019). 3. 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 No findings of acute or chronic mesenteric ischemia. Please note that all CT scans at this facility use dose modulation, iterative reconstruction, and/or weight-based dosing when appropriate to reduce radiation dose to as low as reasonably achievable. Dictated by Victorina Hassan MD @ 07/18/2025 9:26:12 AM (Electronically Signed)
--- OUTSIDE RECORDS SUMMARY | 2025-07-18 08:33 | XMS_ITS | CCD ---
Author Name Interface, [id number] lity Address [address] [place] [id number] [facility] Address [address] [address] Reason for Visit Social History Date Name Value 04/10/2025 Sex Female
--- OUTSIDE RECORDS SUMMARY | 2025-07-18 08:33 | XMS_ITS | CCD ---
Author Name Interface, [id number] lity Address [address] [place] [address] [facility] Address [address] [address] Reason for Visit Social History Date Name Value 04/10/2025 Sex Female
[2025-07-18 08:43] LABS: Creatinine, Point-of-Care* 1.0 mg/dl (0.6-1.3)
[2025-07-18 08:46] LABS: Hematocrit* 38.7 % (33.0-51.0); Hemoglobin* 12.0 gm/dL (12.0-16.0); Immature Granulocytes Abs Auto 0.01 K/uL (0.00-0.30); Immature Granulocytes Pct Auto 0.2 %; Mean Corpuscular HGB Conc 31 gm/dL (32-36); Mean Corpuscular Hemoglobin 30 pg (26-34); Mean Corpuscular Volume 97 fL (80-100); RDW Coefficient of Variation % 12.4 % (11.5-15.5); Red Blood Count* 4.01 m/uL (4.00-5.20); White Blood Count* 5.04 K/uL (4.50-11.00)
[2025-07-18 08:48] LABS: Lymphocytes Absolute Auto 0.90 K/uL (0.90-2.90); Slide Review Reflex No
--- NOTE | 2025-07-18 08:54 | ED_ITS ---
HPI - General Adult General Date Seen: 07/18/25 Chief complaint: Urogenital Problems, Female Stated complaint: poss UTI Time Seen by Provider: 07/18/25 07:59 Source: patient and old records reviewed Mode of arrival: EMS Limitations: no limitations History of Present Illness HPI narrative: Patient is an 85-year-old female with a history of recent retrocecal repair, intermittent vertigo for several months, high blood pressure, hypothyroidism presenting to the emergency department for back pain. On 06/11/2025 patient had a retro C repair done to help with her issues of no sensation of a full rectum. She states the Peguero was placed and since it was removed 1 week later she has been having issues with incontinence. She was diagnosed with the UTI on the 05 of July she states. Was started on an antibiotic, which based on chart review, appears to be ciprofloxacin. She is on for 5 days and she states her urinary symptoms have been about the same. She continues to have issues with incontinence. She states she was called by her doctor after starting ciprofloxacin within results of the urinalysis came back but she could not answer the phone has been unable to get a hold of the provider since then so does not know if she was on the correct antibiotic or not. States over the past 2 days she has been having right flank pain the radiates to the left side. She states the pain is severe and is tender he just touch her back. Has not had any fevers or chills has had decreased appetite. Denies any nausea or vomiting. Denies any abdominal pain. Denies saddle anesthesia. Also states she started to have issues with vertigo today. She states that has been on and off since March when she was diagnosed with vertigo. Denies chest pain, shortness of breath, headache vision changes, weakness, numbness. No other concerns noted at this time. Related Data Home Medications ?Medication ?Instructions ?Recorded ?Confirmed levothyroxine 25 mcg tablet mcg 05/16/22 05/20/23 simvastatin 40 mg tablet mg 05/16/22 05/20/23 amlodipine 2.5 mg tablet 2.5 mg PO BID 03/22/2507/18 amlodipine 5 mg tablet 5 mg PO DAILY 07/18/2507/18 estradiol 0.01% (0.1 mg/gram) vaginal 07/18/25 vaginal cream Allergies Allergy/AdvReac Type Severity Reaction Status Date / Time No Known Drug Allergies Allergy Verified 07/18/25 09:54 Review of Systems Status of ROS: Reports: 10 or more systems reviewed and unremarkable except as noted in History and below 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 - Hyperlipidemia, unspecified (ICD-10) Surgical History History of tonsillectomy and adenoidectomy ?Z90.89 - Acquired absence of other organs (ICD-10) History of total abdominal hysterectomy ?Z90.710 - Acquired absence of both cervix and uterus (ICD-10) History of knee joint replacement ?Z96.659 - Presence of unspecified artificial knee joint (ICD-10) History of colonoscopy ?Z98.890 - Other specified postprocedural states (ICD-10) History of lumpectomy of both breasts ?Z98.890 - Other specified postprocedural states (ICD-10) History of appendectomy ?Z90.49 - Acquired absence of other specified parts of digestive tract (ICD-10) Family History Other Deep vein thrombosis (DVT) Social History Smoking Status: Former smoker Do you use any of these nicotine containing products: None Second hand tobacco smoke exposure: Yes How often do you have a drink containing alcohol: monthly or less Alcohol type: wine How many standard drinks containing alcohol do you have on a typical day: 1 or 2 How often do you have six or more drinks on one occasion: Never AUDIT-C Alcohol total score: 1 Non-prescribed substance use: denies use Caffeine: Yes (COFFEE) Are you using contraception or practicing any form of control: No service: No Exam Narrative: Exam Narrative: Const: Well-nourished, Well-developed, in moderate distress Eyes: PERRL, no conjunctival injection, and symmetrical lids HENT: Atraumatic external nose and ears. Moist mucous membranes. Neck: Symmetric, trachea midline, No thyromegaly. CVS: RRR, No murmurs or gallops. Peripheral pulses 2+ and equal in all extremities RESP: Unlabored respiratory effort. Clear to auscultation bilaterally. GI: Nontender/Nondistended, No rebound or guarding. Notable right CVA tenderness MSK:Extremities w/o deformity, Normal Active ROM Skin: Warm, Dry. No rashes or lesions. Neuro: Normal Muscle tone, No focal neurological deficits. Psych: Awake, Alert, & Oriented x3. Appropriate mood and affect. Const: Vital Signs, click to edit/add: Vital Signs - 24 hr 07/18/25 07:49 07/18/25 09:39 07/18/25 09:58 Temperature 98.3 F 98.7 F Pulse Rate [Pulse Oximeter] 60 74 Respiratory Rate 16 18 Blood Pressure 152/73 H Blood Pressure [Ri ght Upper Arm] 166/69 H 147/82 H Pulse Oximetry 99 98 Oxygen Delivery Me thod Room Air 07/18/25 10:02 Temperature Pulse Rate [Pulse Oximeter] Respiratory Rate Blood Pressure 147/66 H Blood Pressure [Ri ght Upper Arm] Pulse Oximetry Oxygen Delivery Me thod Course Vital Signs Vital signs: Initial Vital Signs Temperature 98.3 F 07/18/25 07:49 Temperature Source Temporal Artery Scan 07/18/25 07:49 Pulse Rate 60 07/18/25 07:49 Respiratory Rate 16 07/18/25 07:49 Blood Pressure 166/69 H 07/18/25 07:49 Blood Pressure Mean 101 07/18/25 07:49 Blood Pressure Position Sitting 07/18/25 07:49 Pulse Oximetry 99 07/18/25 07:49 Oxygen Delivery Method Room Air 07/18/25 07:49 Vital Signs Temperature 98.3 F 07/18/25 07:49 Pulse Rate 60 07/18/25 07:49 Respiratory Rate 16 07/18/25 07:49 Blood Pressure 166/69 H 07/18/25 07:49 Pulse Oximetry 99 07/18/25 07:49 Oxygen Delivery Method Room Air 07/18/25 07:49 Temperature 98.7 F 07/18/25 09:39 Pulse Rate 74 07/18/25 09:39 Respiratory Rate 18 07/18/25 09:39 Blood Pressure 147/66 H 07/18/25 10:02 Pulse Oximetry 98 07/18/25 09:39 Oxygen Delivery Method Room Air 07/18/25 07:49 Medical Decision Making MDM Narrative Medical decision making narrative: Patient is an 85-year-old female presenting for right flank pain. The differential diagnosis of flank pain including vascular causes such as aortic aneurysm, renal vascular issues, aortic dissection, mesenteric ischemia, nephrolithiasis, ureter stricture, pyelonephritis, along with several other GI and gynecological/ causes. My biggest concern at this time is pyelonephritis. Will do CT scan noted look for any other possible abnormalities. Will also order CBC, creatinine, urinalysis, CMP, viral swabs, magnesium. She declined any pain medication at this time. Lab work shows no acute concerning abnormalities. Initial urinalysis did show signs of UTI but was a dirty sample. CT interpreted by myself and Radiology does show slightly growing using cyst along with high-grade stenosis of the superior mesenteric artery secondary to atherosclerosis. There does appear to be some mild urinary bladder cystitis. Of note though we did straight cath the patient and got 250 mL of fluid out due to the injury sample and a repeat sample was normal. I spoke to the on-call radiologist as she says she cannot definitively say that the appearance of the bladder is from a cystitis at this time or if that is how it always looks. When patient has urinated she has only urinated small amounts at a time. I do believe she is having urinary retention. At this time I do not believe she truly has a UTI. I do believe though she needs a Peguero urine for urinary retention. I spoke to her more about the back pain and she has been sleeping in her chair more. I do think this back pain is musculoskeletal in nature. She is safe for discharge though. She agrees with this plan. Diagnosis: Urinary retention, musculoskeletal back pain Lab Data Labs: Lab Results 07/18/25 07/18/25 07/18/25 Range/Units 08:02 08:26 08:35 WBC 5.04 (4.50-11.00) K/uL RBC 4.01 (4.00-5.20) m/uL Hgb 12.0 (12.0-16.0) gm/dL Hct 38.7 (33.0-51.0) % MCV 97 (80-100) fL MCH 30 (26-34) pg MCHC 31 L (32-36) gm/dL RDW Coeff of Deepti 12.4 (11.5-15.5) % Plt Count 197 (140-440) K/uL Neut % (Auto) 71.6 (42.0-72.0) % Lymph % (Auto) 18.1 L (20-44) % [place] % (Auto) 8.1 (0.0-11.0) % Eos % (Auto) 1.4 (0.0-7.0) % Baso % (Auto) 0.6 (0.0-3.0) % Neut # (Auto) 3.61 (1.7-7.0) K/uL Lymph # (Auto) 0.90 (0.90-2.90) K/uL [place] # (Auto) 0.40 (0.00-0.90) K/UL Eos # (Auto) 0.07 (0.00-0.50) K/uL Baso # (Auto) 0.03 (0.00-0.30) K/uL Abs Immat Gran (auto) 0.01 (0.00-0.30) K/uL Imm/Tot Granulo (auto) 0.2 % Sodium 137 (135-149) mmol/L Potassium 3.8 (3.6-5.1) mmol/L Chloride 101 (96-114) mmol/L Carbon Dioxide 26 (20-32) mmol/L Anion Gap 10 (7-15) mEq/L BUN 16 (7-30) mg/dL Creatinine 0.8 (0.5-1.5) mg/dL Estimated Creat Clear 31.94 Estimated GFR 72 ml/min Glucose 107 (60-115) mg/dL Calcium 8.8 (8.4-10.6) mg/dL Magnesium 1.9 (1.5-2.6) mg/dL Total Bilirubin 0.6 (0.1-1.5) mg/dL AST 26 (12-35) U/L ALT 12 (4-35) U/L Alkaline Phosphatase 70 (40-150) U/L Total Protein 6.8 (6.0-8.3) g/dL Albumin 4.1 (3.3-5.0) g/dL Urine Color Light yellow (Yellow) Urine Appearance Slightly Cloudy A (Clear) Urine pH 8.0 (5.0-8.5) Ur Specific [place] 1.015 (1.000-1.030) Urine Protein Negative (Negative) Urine Glucose (UA) Negative (Negative) Urine Ketones 1+ A (Negative) Urine Blood 1+ A (Negative) Urine Nitrite Negative (Negative) Urine Bilirubin Negative (Negative) Urine Urobilinogen 0.2 (0.2-1.0) Ur Leukocyte Esterase 3+ A (Negative) Urine RBC 2-5 A (0-2) Urine WBC 25-50 A (0-5) Ur Squamous Epith Cells Moderate A (None-Few) Urine Bacteria None (None) SARS-CoV-2 (PCR) Negative SARS-CoV-2 (Negative) Influenza Type A (PCR) Negative PCR FLU A (Negative) Influenza Type B (PCR) Negative PCR FLU B (Negative) RSV (PCR) Negative PCR RSV (Negative) POC Creatinine 1.0 (0.6-1.3) mg/dl 07/18/25 Range/Units 09:50 WBC (4.50-11.00) K/uL RBC (4.00-5.20) m/uL Hgb (12.0-16.0) gm/dL Hct (33.0-51.0) % MCV (80-100) fL MCH (26-34) pg MCHC (32-36) gm/dL RDW Coeff of Deepti (11.5-15.5) % Plt Count (140-440) K/uL Neut % (Auto) (42.0-72.0) % Lymph % (Auto) (20-44) % [place] % (Auto) (0.0-11.0) % Eos % (Auto) (0.0-7.0) % Baso % (Auto) (0.0-3.0) % Neut # (Auto) (1.7-7.0) K/uL Lymph # (Auto) (0.90-2.90) K/uL [place] # (Auto) (0.00-0.90) K/UL Eos # (Auto) (0.00-0.50) K/uL Baso # (Auto) (0.00-0.30) K/uL Abs Immat Gran (auto) (0.00-0.30) K/uL Imm/Tot Granulo (auto) % Sodium (135-149) mmol/L Potassium (3.6-5.1) mmol/L Chloride (96-114) mmol/L Carbon Dioxide (20-32) mmol/L Anion Gap (7-15) mEq/L BUN (7-30) mg/dL Creatinine (0.5-1.5) mg/dL Estimated Creat Clear Estimated GFR ml/min Glucose (60-115) mg/dL Calcium (8.4-10.6) mg/dL Magnesium (1.5-2.6) mg/dL Total Bilirubin (0.1-1.5) mg/dL AST (12-35) U/L ALT (4-35) U/L Alkaline Phosphatase (40-150) U/L Total Protein (6.0-8.3) g/dL Albumin (3.3-5.0) g/dL Urine Color Light yellow (Yellow) Urine Appearance Clear (Clear) Urine pH 8.5 (5.0-8.5) Ur Specific [place] 1.015 (1.000-1.030) Urine Protein Negative (Negative) Urine Glucose (UA) Negative (Negative) Urine Ketones Trace A (Negative) Urine Blood Negative (Negative) Urine Nitrite Negative (Negative) Urine Bilirubin Negative (Negative) Urine Urobilinogen 0.2 (0.2-1.0) Ur Leukocyte Esterase Negative (Negative) Urine RBC 0-2 (0-2) Urine WBC 0-2 (0-5) Ur Squamous Epith Cells Few (None-Few) Urine Bacteria None (None) SARS-CoV-2 (PCR) (Negative) Influenza Type A (PCR) (Negative) Influenza Type B (PCR) (Negative) RSV (PCR) (Negative) POC Creatinine (0.6-1.3) mg/dl Imaging Data CT scan abdomen and pelvis: Attestation: I have reviewed the pertinent imaging results. Radiologist's impression: 1. Urinary bladder cystitis, mild. No findings of upper tract infection or pyelonephritis. 2. Slowly growing cystic left ovarian or adnexal lesion now measures 6.8 x 4.9 cm, previously 5.8 x 4.2 cm (2019). 3. 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 No findings of acute or chronic mesenteric ischemia. Please note that all CT scans at this facility use dose modulation, iterative reconstruction, and/or weight-based dosing when appropriate to reduce radiation dose to as low as reasonably achievable. Dictated by Victorina Hassan MD @ 07/18/2025 9:26:12 AM Discharge Plan Discharge Clinical Impression: Acute urinary retention, Musculoskeletal back pain Patient Disposition: Home, Self-Care Condition: Stable Instructions: Acute Urinary Retention in Women (ED), Back Pain (ED) Additional Instructions: Follow-up with your surgical team or primary care provider about your urinary tension. Take [id number] pain medication for back pain. This pain appears to be musculoskeletal in nature. Return to emergency department for new or worsening symptoms. Prescriptions: No Action amlodipine 2.5 mg tablet 2.5 mg PO BID Patient Comments: not sure what dose as pt does not remember simvastatin 40 mg tablet Patient Comments: TAKE 1 TABLET (40 MG) BY MOUTH ONCE DAILY. levothyroxine 25 mcg tablet Patient Comments: TAKE 1 TABLET (25 MCG) BY MOUTH ONCE DAILY. amlodipine 5 mg tablet 5 mg PO DAILY estradiol 0.01 % (0.1 mg/gram) cream vaginal Follow Up/Referrals: Debi Oliva DO [Primary Care Provider, Family Practice] Stand Alone Forms: [employer] Info Instructions
[2025-07-18 08:57] LABS: Albumin* 4.1 g/dL (3.3-5.0); Chloride* 101 mmol/L (96-114); Potassium* 3.8 mmol/L (3.6-5.1); Sodium* 137 mmol/L (135-149)
[2025-07-18 08:59] LABS: Blood Urea Nitrogen* 16 mg/dL (7-30); Creatinine* 0.8 mg/dL (0.5-1.5); Est. Creatinine Clearance* 31.94; Estimated Glomerular Filt Rate 72 ml/min
[2025-07-18 09:00] LABS: Alanine Aminotransferase* 12 U/L (4-35); Alkaline Phosphatase* 70 U/L (40-150); Anion Gap 10 mEq/L (7-15); Aspartate Amino Transferase* 26 U/L (12-35); Bilirubin Total* 0.6 mg/dL (0.1-1.5); Calcium* 8.8 mg/dL (8.4-10.6); Carbon Dioxide* 26 mmol/L (20-32); Glucose* 107 mg/dL (60-115); Total Protein* 6.8 g/dL (6.0-8.3)
[2025-07-18 09:23] LABS: PCR FLU A Negative PCR FLU A (Negative); PCR FLU B Negative PCR FLU B (Negative); PCR RSV Negative PCR RSV (Negative); SARS PCR* Negative SARS-CoV-2 (Negative)
[2025-07-18 09:39] VITALS: BP 147/82; PULSE 74; RESP 18; TEMP 37.1; O2SAT 98
[2025-07-18 09:57] LABS: Appearance Urine Clear (Clear)
[2025-07-18 09:58] VITALS: BP 152/73
[2025-07-18 10:02] VITALS: BP 147/66
--- NOTE | 2025-07-18 11:40 | ED.NURSE ---
Patient has been given education on leg bag management. She was able to demonstrate how to empty the catheter and plug it if needed.
== END 2025-07-18 12:00 | disposition home or self-care (01) ==
PROVIDERS: Emergency Provider Student in an Organized Health Care Education/Training Program; PCP Family Medicine
DX: R33.9 Retention of urine, unspecified (principal); M54.50 Low back pain, unspecified
CPT/HCPCS: 36415; 74177; 80053; 81001; 81003; 82565; 83735; 85025; 87086; 87637; 99284; 99285; Q9967